=== PATIENT | male | born 1960 | race Caucasian/White ===

== ENCOUNTER 2017-04-17 17:21 | Emergency (ER) | payer MEDICARE, SELFPAY ==
[2017-04-17 17:22] VITALS: BP 127/75; PULSE 63; RESP 18; TEMP 36.1; O2SAT 95; BMI 29.7
--- NOTE | 2017-04-17 17:52 | CT_ITS ---
STUDY: CT ABDOMEN AND PELVIS WITHOUT CONTRAST REASON FOR EXAM: Male, 56 years old. Left-sided groin pain. RADIATION DOSAGE (If Supplied By Facility): CTDIvol = ( 15.01 ) mGy, DLP = ( 824.84 ) mGycm TECHNIQUE: Transaxial images were obtained from the dome of the diaphragm to the symphysis pubis without oral contrast, and without intravenous contrast. Sagittal and coronal images were reconstructed. Individualized dose optimization techniques were used for this CT. COMPARISON: Prior comparison studies are not available for review at this time. FINDINGS: The visualized lung bases are unremarkable. The visualized portions of the heart are within normal limits. Normal liver. Normal gallbladder and extrahepatic biliary system. Normal spleen. Normal pancreas. Normal bilateral adrenal glands. Both kidneys are small in size. There is no evidence for hydronephrosis, hydroureter or radiopaque ureteral calculus. Normal visualized stomach. There is no evidence for dilated bowel, ascites or pneumoperitoneum. Small bowel has a grossly normal appearance. Stool is visible throughout the colon with scattered colonic diverticula. The appendix is visualized and appears normal. There is minimal atherosclerotic calcification of the abdominal aorta, without a demonstrated aneurysm. Normal inferior vena cava. Normal retroperitoneum. Normal urinary bladder. Normal visualized prostate gland. There is a small umbilical hernia containing fat. There are degenerative changes at T12-L1 and L1-2. CT/Abdomen/Pelvis without Cont IMPRESSION: No CT evidence of acute intra-abdominal disease. Electronically Signed: Paulina Vásquez MD at 19:30 EST , Service support ,
[2017-04-17] MEDS: HYDROcodone Bitartrate/Apap 5/325 Tablet PO (18:10)
--- NOTE | 2017-04-17 18:57 | ED.DCSUM_ITS ---
- ER Visit Summary Date of Service: 04/17/17 Chief Complaint: Left groin pain History of Present Illness: The patient is a 56 M with prior left inguinal hernia repair. Patient states last night he was lifting firewood when he developed sudden pain to the area of his prior hernia surgery. He denies a bulge. Patient has been able urinate and have normal bowel movement today. Physical Examination: Vital signs are unremarkable. Head neck examination is normal. Heart is regular rate and rhythm. Lung sounds are clear. Abdomen is soft with mild tenderness over the left pelvis along the prior surgical scar from his hernia repair. No palpable hernia is noted at this time. Test Results: CT scan of the abdomen and pelvis reveals no evidence of acute ab normality. On my review I can see the mesh that was placed previously. Bowel appears normal in this area. Emergency Department Course and Treatment: Patient was given p.o. [place] for pain. He will be given a short course of [place] for pain at home. He will refer to Dr. Villalobos for follow-up if needed. My suspicion is that he pulled some of the scar tissue from his prior surgical site. At this time there is no evidence of recurrent hernia. Treatment Plan: [] Disposition: Discharge Impression: Left lower quadrant pain This note was generated with [employer] dictation software. It may contain incorrect words, spelling, and punctuation that were not noted in review of the chart prior to signing ED Disposition - Plan for ED Patient: Chief Complaint: Abd Pain Referrals: Care Physician,No Primary [Primary Care Provider] -
--- NOTE | 2017-04-17 20:02 | ED.DEP ---
ED Disposition - Plan for ED Patient: Disposition: Home or Assisted Living Chief Complaint: Abd Pain Instructions: ED Abdominal Pain Adhesions Prescriptions: Hydrocodone Bitart/Apap 5-325 [Bauxite 5/325] 1 - 2 tablet PO Q6H PRN PRN 4 Days #12 tablet PRN Reason: Pain Referrals: Jered Villalobos MD [STAFF PHYSICIAN] - As Needed
--- NOTE | 2017-04-17 20:05 | DCINST.ED_ITS ---
ED Disposition - Plan for ED Patient: Disposition: Home or Assisted Living Chief Complaint: Abd Pain Instructions: ED Abdominal Pain Adhesions Prescriptions: Hydrocodone Bitart/Apap 5-325 [Foster 5/325] 1 - 2 tablet PO Q6H PRN PRN 4 Days # 12 tablet PRN Reason: Pain Referrals: Jered Villalobos MD [STAFF PHYSICIAN] - As Needed
[2017-04-17 20:19] VITALS: PULSE 85; RESP 16; O2SAT 99
== END 2017-04-17 20:20 | disposition home or self-care (01) ==
PROVIDERS: Emergency Provider Emergency Medicine
DX: R10.32 Left lower quadrant pain (principal); I25.2 Old myocardial infarction; I10 Essential (primary) hypertension; Z86.73 Personal history of transient ischemic attack (TIA), and cerebral infarction without residual deficits; Z79.01 Long term (current) use of anticoagulants; Z79.899 Other long term (current) drug therapy; Z72.0 Tobacco use
CPT/HCPCS: 74176; 99283

== ENCOUNTER 2017-07-24 19:44 | Emergency (ER) | payer MEDICARE, SELFPAY ==
[2017-07-24 19:45] VITALS: BP 151/96; PULSE 68; RESP 17; TEMP 36.2; O2SAT 98; BMI 29.7
--- NOTE | 2017-07-24 21:00 | ED.DCSUM_ITS ---
- ER Visit Summary Date of Service: 07/24/17 Chief Complaint: Possible allergic reaction History of Present Illness: The patient is a 57 M who presents with a rash that has been getting worse over the past week. Patient states the rash started on his bilateral forearms and has spread to his scalp and upper back. Patient denies any exposure to poison karissa or poison oak. Patient denies any new exposures such as foods, soaps, shampoos, or laundry detergents. Patient denies any difficulty breathing or difficulty swallowing. Patient denies any rashes on his trunk or lower extremities. Physical Examination: Vital signs are stable. Patient is afebrile. Patient is in no acute distress. Oral mucosa is pink and moist. Neck is supple. Trachea is midline. There is no JVD or lymphadenopathy noted. Heart was regular rate and rhythm. Lungs are clear and equal bilaterally. Cranial nerves II through XII are intact. There are no focal motor or sensory deficits noted. Skin is warm dry. There is a erythematous macular rash over the bilateral forearms, scalp, and upper back. There are areas of linear vesicles. There is no crusting or drainage noted. There is no involvement of the mucous membranes. There is no involvement of the palms or soles. There is no petechia noted. The remaining physical exam is within normal limits. Treatment Plan: Patient was given prescriptions for redness own and Atarax. Patient was instructed to follow-up with his primary care physician in 7-10 days. Patient understood and was agreeable with the plan. All questions were answered. Disposition: Discharge home Impression: Rhus dermatitis This note was generated with [employer] dictation software. It may contain incorrect words, spelling, and punctuation that were not noted in review of the chart prior to signing ED Disposition - Plan for ED Patient: Disposition: Home or Assisted Living Chief Complaint: Allergic Reaction Diagnosis: Rhus dermatitis Instructions: ED Dermatitis Poison Karissa Prescriptions: Hydroxyzine Pamoate 25 mg PO Q8H PRN PRN #20 cap PRN Reason: Itching Prednisone [Deltasone] 40 mg PO DAILY #10 tab Referrals: Care Physician,No Primary [Primary Care Provider] -
[2017-07-24 21:09] VITALS: RESP 18
== END 2017-07-24 21:09 | disposition home or self-care (01) ==
LOC: ED 21:07
PROVIDERS: Emergency Provider Emergency Medicine
DX: L23.7 Allergic contact dermatitis due to plants, except food (principal); I10 Essential (primary) hypertension; E78.00 Pure hypercholesterolemia, unspecified; Z86.73 Personal history of transient ischemic attack (TIA), and cerebral infarction without residual deficits; Z79.01 Long term (current) use of anticoagulants; Z79.899 Other long term (current) drug therapy; Z72.0 Tobacco use
CPT/HCPCS: 99282

== ENCOUNTER 2017-10-10 14:38 | Observation (INO) | payer MEDICARE, SELFPAY ==
[2017-10-10] VITALS (11 sets, daily range): BP systolic 118–162; BP diastolic 60–87; PULSE 39–55; RESP 13–18; TEMP 36.4–36.7; O2SAT 96–100; BMI 31.7; BMI 26.4
--- NOTE | 2017-10-10 14:39 | CT_ITS ---
STUDY: CTA OF THE BRAIN REASON FOR EXAM: Male, 57 years old. Mental status change, right-sided weakness RADIATION DOSAGE (If Supplied By Facility): CTDIvol = ( 15.34 ) mGy, DLP = ( 704.21 ) mGycm TECHNIQUE: CT angiography was performed with a multi-detector CT scanner. Data acquisition was obtained from the skull base through the vertex following intravenous administration of 100 ml of Isovue 370. MIP images were reconstructed from the axial data set. Post-processing of the angiographic images was performed, with multiplanar reformation and 3D reconstruction. Individualized dose optimization techniques were used for this CT. COMPARISON: None. FINDINGS: Normal bilateral petrous carotid arteries. Normal right cavernous carotid artery with a normal supraclinoid bifurcation. Normal left cavernous carotid artery with a normal supraclinoid bifurcation. Normal right A1 segments of the anterior cerebral artery. Normal left A1 segments of the anterior cerebral artery. Normal intact anterior communicating artery (ACOM). Normal bilateral A2 segments of the anterior cerebral arteries. Normal right M1 and M2 segments of the middle cerebral arteries, with a normal M1 bifurcation. Normal left M1 and M2 segments of the middle cerebral arteries, with a normal M1 bifurcation. Normal right posterior communicating artery (PCOM). Normal left posterior communicating artery (PCOM). Normal bilateral vertebral arteries. Normal basilar artery with a normal basilar bifurcation. The visualized bilateral superior cerebellar (SCA) arteries are normal. Normal bilateral P1, P2 and visualized P3 segments of the posterior cerebral arteries. There is no demonstrated aneurysm of the [place]. There is no demonstrated abnormality of the visualized brain. IMPRESSION: Normal [place] without a demonstrated aneurysm or hemodynamically significant stenosis. Electronically Signed: Evgeny Spears MD at 15:11 EDT , Service support , STUDY: CTA NECK REASON FOR EXAM: Male, 57 years old. Mental status change, facial drooping RADIATION DOSAGE (If Supplied By Facility): CTDIvol = ( 15.34 ) mGy, DLP = ( 704.21 ) mGycm. Individualized dose optimization techniques were used for this CT.? TECHNIQUE: 1.25 cm axial images of the neck obtained with 100 mL Isovue 370 contrast. MPR performed along with three-dimensional reconstruction of the carotid arteries and their branches. COMPARISON: None. FINDINGS: Normal origins of the great vessels noted from a normal appearing aortic arch. No significant atherosclerotic disease noted. Both common carotid arteries ascend normally through the neck without evidence of stenosis or dissection. Normal-appearing carotid bulbs noted without significant atherosclerotic disease. Normal origins to both internal and external carotid arteries noted. Both ICAs ascend normally to the skull base and in the circulation of the brain. Vertebral arteries are of similar size. No evidence of stenosis identified. Both subclavian arteries are of normal course and caliber. The soft tissue windows show normal-appearing thyroid gland. There are scattered subcentimeter jugular chain and posterior triangle adenopathy but there is no suspicious enhancing lesion, evidence of inflammation, tissue disruption, or airway narrowing or deviation. There is an air-fluid level noted within the left maxillary sinus. CT/CTA Neck W/WO Contrast IMPRESSION: No CTA evidence of significant plaque formation or carotid artery stenosis. Normal vertebral arteries. No suspicious enhancing lesion or narrowing or deviation or acute inflammatory changes noted. Left maxillary sinusitis Electronically Signed: Evgeny Spears MD at 15:10 EDT , Service support ,
--- NOTE | 2017-10-10 14:39 | CT_ITS ---
STUDY: CTA OF THE BRAIN REASON FOR EXAM: Male, 57 years old. Mental status change, right-sided weakness RADIATION DOSAGE (If Supplied By Facility): CTDIvol = ( 15.34 ) mGy, DLP = ( 704.21 ) mGycm TECHNIQUE: CT angiography was performed with a multi-detector CT scanner. Data acquisition was obtained from the skull base through the vertex following intravenous administration of 100 ml of Isovue 370. MIP images were reconstructed from the axial data set. Post-processing of the angiographic images was performed, with multiplanar reformation and 3D reconstruction. Individualized dose optimization techniques were used for this CT. COMPARISON: None. FINDINGS: Normal bilateral petrous carotid arteries. Normal right cavernous carotid artery with a normal supraclinoid bifurcation. Normal left cavernous carotid artery with a normal supraclinoid bifurcation. Normal right A1 segments of the anterior cerebral artery. Normal left A1 segments of the anterior cerebral artery. Normal intact anterior communicating artery (ACOM). Normal bilateral A2 segments of the anterior cerebral arteries. Normal right M1 and M2 segments of the middle cerebral arteries, with a normal M1 bifurcation. Normal left M1 and M2 segments of the middle cerebral arteries, with a normal M1 bifurcation. Normal right posterior communicating artery (PCOM). Normal left posterior communicating artery (PCOM). Normal bilateral vertebral arteries. Normal basilar artery with a normal basilar bifurcation. The visualized bilateral superior cerebellar (SCA) arteries are normal. Normal bilateral P1, P2 and visualized P3 segments of the posterior cerebral arteries. There is no demonstrated aneurysm of the [place]. There is no demonstrated abnormality of the visualized brain. IMPRESSION: Normal [place] without a demonstrated aneurysm or hemodynamically significant stenosis. Electronically Signed: Evgeny Spears MD at 15:11 EDT , Service support , STUDY: CTA NECK REASON FOR EXAM: Male, 57 years old. Mental status change, facial drooping RADIATION DOSAGE (If Supplied By Facility): CTDIvol = ( 15.34 ) mGy, DLP = ( 704.21 ) mGycm. Individualized dose optimization techniques were used for this CT.? TECHNIQUE: 1.25 cm axial images of the neck obtained with 100 mL Isovue 370 contrast. MPR performed along with three-dimensional reconstruction of the carotid arteries and their branches. COMPARISON: None. FINDINGS: Normal origins of the great vessels noted from a normal appearing aortic arch. No significant atherosclerotic disease noted. Both common carotid arteries ascend normally through the neck without evidence of stenosis or dissection. Normal-appearing carotid bulbs noted without significant atherosclerotic disease. Normal origins to both internal and external carotid arteries noted. Both ICAs ascend normally to the skull base and in the circulation of the brain. Vertebral arteries are of similar size. No evidence of stenosis identified. Both subclavian arteries are of normal course and caliber. The soft tissue windows show normal-appearing thyroid gland. There are scattered subcentimeter jugular chain and posterior triangle adenopathy but there is no suspicious enhancing lesion, evidence of inflammation, tissue disruption, or airway narrowing or deviation. There is an air-fluid level noted within the left maxillary sinus. CT/CTA Head W/WO Contrast IMPRESSION: No CTA evidence of significant plaque formation or carotid artery stenosis. Normal vertebral arteries. No suspicious enhancing lesion or narrowing or deviation or acute inflammatory changes noted. Left maxillary sinusitis Electronically Signed: Evgeny Spears MD at 15:10 EDT , Service support ,
--- NOTE | 2017-10-10 14:39 | CT_ITS ---
STUDY: CT BRAIN WITHOUT CONTRAST REASON FOR EXAM: Male, 57 years old. New onset of right-sided weakness RADIATION DOSAGE (If Supplied By Facility): CTDIvol = ( ) mGy, DLP = ( ) mGycm TECHNIQUE: Transaxial CT imaging of the brain was performed without administration of intravenous contrast material. Individualized dose optimization techniques were used for this CT. COMPARISON: None. FINDINGS: Normal soft tissue structures. Normal calvarium. Normal size ventricles and extra-axial spaces for the patient's age. Normal white matter tracts of the cerebral hemispheres. Normal basal ganglia and thalami. Normal brainstem. Normal cerebellum. There is no intracranial hemorrhage. There are no findings of an acute ischemic infarction. Normal visualized paranasal sinuses. CT/Brain/Head without Contrast IMPRESSION: Age-related changes, no acute findings CT is not sensitive for nonhemorrhagic infarct, if this is a strong clinical concern, recommend further evaluation with MRI N.B. : The above information has been verbally conveyed by Evgeny Spears MD to Gregorio Hester, Referring Physician, on 10/10/2017 14:56:04 (ET). Electronically Signed: Evgeny Spears MD at 14:57 EDT , Service support ,
--- NOTE | 2017-10-10 14:39 | EKG12_ITS ---
Test Reason : Blood Pressure : / mmHG Vent. Rate : 050 BPM Atrial Rate : 050 BPM P-R Int : 178 ms QRS Dur : 092 ms QT Int : 448 ms P-R-T Axes : 056 022 054 degrees QTc Int : 408 ms Sinus bradycardia Otherwise normal ECG Confirmed by ELAINE JARRETT, [place] ([id number]), fashion editor SARY PETERSON ([id number]) on 10/16/2017 2:43:43 PM Referred By: Maurilio Pabon Confirmed By:KENOTN HENRY MD
--- NOTE | 2017-10-10 14:57 | MRI_ITS ---
STUDY: MRI BRAIN WITHOUT CONTRAST REASON FOR EXAM: Male, 57 years old. Left hemispheric stroke. A aphasia. TECHNIQUE: Standardized multiplanar fat and water weighted pulse sequences were obtained. COMPARISON: October 10, 2017 FINDINGS: Normal size of the ventricles and extra-axial spaces for the patient's age. Normal white matter tracts of the supratentorial brain. There is no evidence for recent intracranial ischemia or other cause of cytotoxic edema on diffusion weighted imaging (DWI). Normal bilateral basal ganglia. Normal thalami. There is no extra-axial fluid accumulation. Normal flow voids within the major intracranial circulation suggesting patency by spin echo criteria. Normal sella turcica, pituitary gland, infundibular stalk, optic chiasm and hypothalamus. Normal tectal plate and pineal gland. Normal midbrain, tre and medulla. Normal cerebellum. Normal basal cisterns. Normal bilateral temporal bones. Normal bilateral internal auditory canals. No demonstrated orbital abnormality, within the constraints of a routine brain study. Normal visualized paranasal sinuses. Normal calvarium and skull base. Normal visualized soft tissue structures. Normal visualized upper cervical spine. MRI/Brain without Contrast IMPRESSION: Normal unenhanced MRI of the brain. Electronically Signed: Jovan Liu MD at 16:36 EDT , Service support ,
[2017-10-10 15:05] LABS: Bedside Glucose 91 mg/dL (70-110)
--- NOTE | 2017-10-10 15:16 | CON.PCM_ITS ---
Reason for Consult Date of Consultation: 10/10/17 Reason for Consultation: STROKE TEAM History of Present Illness: The patient is a 57 year old M with history of cva in '08, apparently worked up elsewhere was last known well at 2pm today, later noted by coworkers to have right sided weakness. i met the patient in the ct scanner and reviewed the ct scan concurrent with its performance at approx 250pm. pt is awake, alert, but mute and unable to give history. Past Medical History Allergies aspirin Allergy (Verified 10/10/17 14:53) Swelling meperidine HCl [From Demerol] Allergy (Verified 10/10/17 14:53) Unknown Penicillins [PCN] Allergy (Verified 10/10/17 14:53) Hives Home Medications: Ambulatory Orders Medication Instructions Recorded Clopidogrel Bisulfate [Plavix] 75 mg PO DAILY 04/17/17 Metoprolol Tartrate [Lopressor 50 mg PO DAILY 04/17/17 (Beta Anselmo)] Pravastatin [Pravachol] 40 mg PO DAILY 04/17/17 Hydroxyzine Pamoate 25 mg PO Q8H PRN PRN #20 cap 07/24/17 Prednisone [Deltasone] 40 mg PO DAILY #10 tab 07/24/17 Smoking Status: Current some day smoker Alcohol: None Drugs: None - *Family History Paternal History Items: No pertinent history Review of Systems Unable to obtain accurate/complete ROS d/t: mute Objective: awake, alert mute answers yes/no appropriately and follows all commands no field cut quantitative manager intact give-way right upper and right lower ext, no drift when distracted sensory exam ? decrease on right, appears distractible as well - Physical Exam Vital Signs Pulse BP Pulse Ox 54 L 150/87 H 99 10/10/17 14:56 10/10/17 14:56 10/10/17 14:56 Oxygen Delivery Method Room Air Finger Stick Blood Glucose 91 POC Glucose 10/10/17 15:[address] reviewed, normal cta reviewed, normal Assessment/Plan All Active Problems Chest pain (Acute) acute left mca infarct causing aphasia, however he has nonphysiologic component to exam. will obtain stat mri diffusion decision for tpa depends upon mri nihss 7 due to rue and rle drift as well as severe aphasia
[2017-10-10] MEDS: DiphenhydrAMINE 50 MG/ML Syringe IV (15:19)
[2017-10-10] MEDS: LORazepam 2 MG/ML Syringe 0.5 MG IV (15:19)
[2017-10-10 15:24] LABS: Prothrombin Time (Protime)PT. 13.2 SECONDS (11.7-14.9)
[2017-10-10 15:25] LABS: Partial Thromboplast Time 30.2 Seconds (24.1-36.2)
[2017-10-10 15:29] LABS: Absolute Lymphocyte Count 1.78 X10^3/ul (0.83-4.51); Absolute Neutrophil Count 2.1 X10^3/uL (2.0-7.7); Basophil# 0.02 X10^3/uL; Basophil% 0.4 % (0-1); Eosinophil# 0.18 X10^3/uL; Hematocrit 41.6 % (40-54); Hemoglobin 14.8 g/dl (13.0-16.5); Lymphocyte # 1.78 X10^3/ul (4.0); Lymphocyte % 39.6 % (19-41); Mean Corp Hgb Conc 35.6 g/gl (32-36); Mean Corpuscular Hgb 34.9 pg (27.0-32.0); Mean Corpuscular Volume 98.1 fL (80-94); Monocyte# 0.42 X10^3/uL; Monocyte% 9.3 % (0-10); Neutrophil # 2.09 X10^3/uL (2.7-7.7); Neutrophil % 46.5 % (47-70); Platelet Count 189 K/mm3 (150-450); RBC Distribution Width CV 12.7 % (11.6-14.6); RBC Distribution Width SD 44.5 fl (35.1-43.9); Red Blood Count 4.24 M/mm3 (4.6-6.2); White Blood Count 4.5 K/mm3 (4.4-11.0)
[2017-10-10 15:41] LABS: POSITIVE COUNT NO; POSITIVE DIFFERENTIAL NO; POSITIVE MORPHOLOGY NO
[2017-10-10 15:42] LABS: Anion Gap 4 (5-15); BUN 9 mg/dL (7-18); BUN/Creat Ratio 10.3 RATIO (10-20); Calcium,Total 8.3 mg/dL (8.5-10.1); Chloride 105 mmol/L (98-107); Creatinine, Serum 0.87 mg/dL (0.70-1.30); EST Glomerular Filtration Rate 96 mL/min (>60); Est Glom Filt Rate - Afr Amer 116 mL/min (>60); Glucose 87 mg/dL (74-106); Potassium 3.9 mmol/L (3.5-5.1); Sodium Level 141 mmol/L (136-145)
--- NOTE | 2017-10-10 15:44 | NURSING ---
PT IN MRI. NURSE CALLED UNCLE WHO IS LISTED NEXT OF [facility]: [phone], HE WOULD LIKE US TO CALL BACK WITH AN UPDATE AFTER MRI COMPLETE.
--- NOTE | 2017-10-10 16:17 | ED.VISSUMM ---
- ER Visit Summary Date of Service: 10/10/17 Chief Complaint: Stroke History of Present Illness: The patient is a 57 M with past medical history of TIA/stroke and hypertension was brought to ER by ambulance. Stroke team was called. History was limited since he was in the hallway when I perform my H&P since there were no beds and desire to get him to imaging immediately since onset was at 1400. Patient has expressive aphasia. He had an NIH of 10. He received 2 points for question 1B, 1.4 question 5, 1.4 question 6 3.4 being mute and one-point for an attention to the right side. Physical Examination: Vital signs were noted. Head is atraumatic normocephalic. Pupils are equal round reactive. Extraocular muscles are intact. TMs are pearly white with landmarks noted. Nares patent with no drainage. Posterior pharynx without erythema or exudate. Uvula is midline. There is no dysphonia or dysphasia. Trachea is midline. There is no stridor with auscultation of the neck. Heart is regular without murmur, gallop or rub. S1 and S2 are normal. Lungs are clear to auscultation with good movement of air bilaterally. Abdomen soft nontender. NIH 10. He had altered sensation and strength right side. He had an expressive aphasia. Test Results: CT normal. CBC, BMP and coags normal. Dr. Pickett requested an MRI. MRI was obtained and there was no perfusion abnormality noted. The MRI was obtained because of concern that this may represent a conversion reaction because on his more detailed exam he noted some inconsistencies. Emergency Department Course and Treatment: Stroke team, stroke order set an MRI as requested by Dr. Otoniel Pickett Treatment Plan: Observation per Dr. Pickett's request Disposition: PCU Impression: Conversion reaction History of hypertension History of TIA/CVA This note was generated with [employer] dictation software. It may contain incorrect words, spelling, and punctuation that were not noted in review of the chart prior to signing ED Disposition - Plan for ED Patient: Chief Complaint: Neuro S/Sx Referrals: Care Physician,No Primary [Primary Care Provider] -
--- NOTE | 2017-10-10 17:57 | PCM.HP.STD ---
Problem List (1) Aphasia Status: Acute History of Present Illness Date of Admission: 10/10/17 Chief Complaint: aphasia and weakness. The patient is a 57 year old M presents with inability to speak and generalized weakness. History is obtained through the patient's son at bedside. The patient is a phasic and unable to provide any history whatsoever. Patient was at work and having a cigarette with his employer where the patient was suddenly unable to speak and just became very weak and unable to get up. Patient was brought to the emergency room and stroke team was called. She underwent an MRI of the brain, CT of the head neck. All which came back unremarkable. Patient's son states that he has had similar episodes but to less extreme in the past that was seen at another hospital and was told that these were due to mini strokes. [] Past Medical History Medical History: Medical History (Last Updated 10/10/17 @ 17:59 by Jimmy Patiño DO) TIA (transient ischemic attack) G45.9 Allergies aspirin Allergy (Verified 10/10/17 14:53) Swelling meperidine HCl [From Demerol] Allergy (Verified 10/10/17 14:53) Unknown Penicillins [PCN] Allergy (Verified 10/10/17 14:53) Hives Home Medications: Ambulatory Orders Medication Instructions Recorded Clopidogrel Bisulfate [Plavix] 75 mg PO DAILY 04/17/17 Metoprolol Succinate 50 mg PO DAILY 10/10/17 Pravastatin [Pravachol] 40 mg PO QHS 10/10/17 Tizanidine HCl 4 mg PO QHS PRN PRN 10/10/17 Smoking Status: Current every day smoker Tobacco Use: Cigarettes Alcohol: None Drugs: None - *Family History Paternal History Items: No pertinent history, - - Unable to obtain as the patient is a phasic Review of Systems Comment: Unable to obtain as the patient is a phasic. See the HPI for further details. VTE Information - Inpt Only VTE Present on Admission: No VTE Pharm Prophylaxis ordered?: Yes Patient Problems: Active and Suspected Problems Aphasia (Acute) - Physical Exam General: Alert, - - A phasic. HEENT: Atraumatic, PERRLA, EOMI, Normocephalic Oral: Moist Mucosa, No Gingival or Mucosal Lesions/ Ulcerations Neck: No Nodes, Thyroid Normal Size and Texture Lungs: Clear to auscultation, Normal air movement, No rhonchi, No wheeze, No rales Cardiovascular: Regular rate, Regular Rhythm, Normal S1, Normal S2, No murmurs Abdomen: Bowel Sounds Present, Soft, Non Tender, Non-Distended, No Hepato-splenomegaly Extremities: No edema, No Calf Tenderness Skin: No rashes, No breakdown Musculoskeletal: No Tenderness to Palpation of Joints or Extremities, No Muscle Wasting Neurological: Cranial nerves II-XII grossly intact, Neuro grossly intact, Motor Exam 5/5 strength throughout Psych/Mental Status: Appropriate Vital Signs Pulse Resp BP Pulse Ox 47 L 13 135/82 H 100 10/10/17 16:56 10/10/17 16:56 10/10/17 16:56 10/10/17 16:56 Oxygen Flow Rate (L/min) 4 Oxygen Delivery Method Nasal Cannula Weight: 97.5 kg Body Mass Index (BMI) 31.7 Finger Stick Blood Glucose 91 Laboratory Tests Past 24 Hrs 10/10/17 10/10/17 10/10/17 15:00 15:00 15:00 WBC 4.5 RBC 4.24 L Hgb 14.8 Hct 41.6 MCV 98.1 H MCH 34.9 H MCHC 35.6 RDW 12.7 RDW Differential 44.5 H Plt Count 189 MPV 11.0 Immature Gran % (Auto) 0.200 Neut % (Auto) 46.5 L Lymph % (Auto) 39.6 [place] % (Auto) 9.3 Eos % (Auto) 4.0 Baso % (Auto) 0.4 Absolute Neuts (auto) 2.1 Absolute Lymphs (auto) 1.78 Total Counted Not Reportable PT 13.2 INR 1.0 APTT 30.2 Sodium 141 Potassium 3.9 Chloride 105 Carbon Dioxide 32.0 Anion Gap 4 L BUN 9 Creatinine 0.87 Est GFR (MDRD) Af Amer 116 Est GFR (MDRD) Non-Af 96 BUN/Creatinine Ratio 10.3 Glucose 87 Calcium 8.3 L POC Glucose 10/10/17 15:01 POC Glucose 91 Clinical Impression(s) from Imaging Studies Brain CT 10/10/17 14:39 IMPRESSION: Age-related changes, no acute findings CT is not sensitive for nonhemorrhagic infarct, if this is a strong clinical concern, recommend further evaluation with MRI N.B. : The above information has been verbally conveyed by Evgeny Spears MD to Gregorio Hester, Referring Physician, on 10/10/2017 14:56:04 (ET). Electronically Signed: Evgeny Spears MD at 14:57 EDT , Service support , Head CTA 10/10/17 14:39 IMPRESSION: No CTA evidence of significant plaque formation or carotid artery stenosis. Normal vertebral arteries. No suspicious enhancing lesion or narrowing or deviation or acute inflammatory changes noted. Left maxillary sinusitis Electronically Signed: Evgeny Spears MD at 15:10 EDT , Service support , Neck CTA 10/10/17 14:39 IMPRESSION: No CTA evidence of significant plaque formation or carotid artery stenosis. Normal vertebral arteries. No suspicious enhancing lesion or narrowing or deviation or acute inflammatory changes noted. Left maxillary sinusitis Electronically Signed: Evgeny Spears MD at 15:10 EDT , Service support , Brain MRI 10/10/17 14:57 IMPRESSION: Normal unenhanced MRI of the brain. Electronically Signed: Jovan Liu MD at 16:36 EDT , Service support , Assessment/Plan All Active Problems Aphasia (Acute) Chest pain (Acute) 1. Aphasia No evidence of any stroke on the MRI and CT of the head neck are also unremarkable Concern is that this could be a conversion disorder given his symptoms. Discussed with Dr. Pickett, who advised an EEG to see if this is a post ictal state though unlikely 2. DVT prophylaxis with Lovenox Code Visit OBSV E&M: 53442 Initial observation care L3
--- NOTE | 2017-10-10 18:01 | HP.PCM_ITS ---
Problem List (1) Aphasia Status: Acute History of Present Illness Date of Admission: 10/10/17 Chief Complaint: aphasia and weakness. The patient is a 57 year old M presents with inability to speak and generalized weakness. History is obtained through the patient's son at bedside. The patient is a phasic and unable to provide any history whatsoever. Patient was at work and having a cigarette with his employer where the patient was suddenly unable to speak and just became very weak and unable to get up. Patient was brought to the emergency room and stroke team was called. She underwent an MRI of the brain, CT of the head neck. All which came back unremarkable. Patient' s son states that he has had similar episodes but to less extreme in the past that was seen at another hospital and was told that these were due to mini strokes. [] Past Medical History Medical History: Medical History (Last Updated 10/10/17 @ 17:59 by Jimmy Patiño DO) TIA (transient ischemic attack) G45.9 Allergies aspirin Allergy (Verified 10/10/17 14:53) Swelling meperidine HCl [From Demerol] Allergy (Verified 10/10/17 14:53) Unknown Penicillins [PCN] Allergy (Verified 10/10/17 14:53) Hives Home Medications: Ambulatory Orders Medication Instructions Recorded Clopidogrel Bisulfate [Plavix] 75 mg PO DAILY 04/17/17 Metoprolol Succinate 50 mg PO DAILY 10/10/17 Pravastatin [Pravachol] 40 mg PO QHS 10/10/17 Tizanidine HCl 4 mg PO QHS PRN PRN 10/10/17 Smoking Status: Current every day smoker Tobacco Use: Cigarettes Alcohol: None Drugs: None - *Family History Paternal History Items: No pertinent history, - - Unable to obtain as the patient is a phasic Review of Systems Comment: Unable to obtain as the patient is a phasic. See the HPI for further details. VTE Information - Inpt Only VTE Present on Admission: No VTE Pharm Prophylaxis ordered?: Yes Patient Problems: Active and Suspected Problems Aphasia (Acute) - Physical Exam General: Alert, - - A phasic. HEENT: Atraumatic, PERRLA, EOMI, Normocephalic Oral: Moist Mucosa, No Gingival or Mucosal Lesions/ Ulcerations Neck: No Nodes, Thyroid Normal Size and Texture Lungs: Clear to auscultation, Normal air movement, No rhonchi, No wheeze, No rales Cardiovascular: Regular rate, Regular Rhythm, Normal S1, Normal S2, No murmurs Abdomen: Bowel Sounds Present, Soft, Non Tender, Non-Distended, No Hepato- splenomegaly Extremities: No edema, No Calf Tenderness Skin: No rashes, No breakdown Musculoskeletal: No Tenderness to Palpation of Joints or Extremities, No Muscle Wasting Neurological: Cranial nerves II-XII grossly intact, Neuro grossly intact, Motor Exam 5/5 strength throughout Psych/Mental Status: Appropriate Vital Signs Pulse Resp BP Pulse Ox 47 L 13 135/82 H 100 10/10/17 16:56 10/10/17 16:56 10/10/17 16:56 10/10/17 16:56 Oxygen Flow Rate (L/min) 4 Oxygen Delivery Method Nasal Cannula Weight: 97.5 kg Body Mass Index (BMI) 31.7 Finger Stick Blood Glucose 91 Laboratory Tests Past 24 Hrs 10/10/17 10/10/17 10/10/17 15:00 15:00 15:00 WBC 4.5 RBC 4.24 L Hgb 14.8 Hct 41.6 MCV 98.1 H MCH 34.9 H MCHC 35.6 RDW 12.7 RDW Differential 44.5 H Plt Count 189 MPV 11.0 Immature Gran % (Auto) 0.200 Neut % (Auto) 46.5 L Lymph % (Auto) 39.6 [place] % (Auto) 9.3 Eos % (Auto) 4.0 Baso % (Auto) 0.4 Absolute Neuts (auto) 2.1 Absolute Lymphs (auto) 1.78 Total Counted Not Reportable PT 13.2 INR 1.0 APTT 30.2 Sodium 141 Potassium 3.9 Chloride 105 Carbon Dioxide 32.0 Anion Gap 4 L BUN 9 Creatinine 0.87 Est GFR (MDRD) Af Amer 116 Est GFR (MDRD) Non-Af 96 BUN/Creatinine Ratio 10.3 Glucose 87 Calcium 8.3 L POC Glucose 10/10/17 15:01 POC Glucose 91 Clinical Impression(s) from Imaging Studies Brain CT 10/10/17 14:39 IMPRESSION: Age-related changes, no acute findings CT is not sensitive for nonhemorrhagic infarct, if this is a strong clinical concern, recommend further evaluation with MRI N.B. : The above information has been verbally conveyed by Evgeny Spears MD to Gregorio Hester, Referring Physician, on 10/10/2017 14:56:04 (ET). Electronically Signed: Evgeny Spears MD at 14:57 EDT , Service support , Head CTA 10/10/17 14:39 IMPRESSION: No CTA evidence of significant plaque formation or carotid artery stenosis. Normal vertebral arteries. No suspicious enhancing lesion or narrowing or deviation or acute inflammatory changes noted. Left maxillary sinusitis Electronically Signed: Evgeny Spears MD at 15:10 EDT , Service support , Neck CTA 10/10/17 14:39 IMPRESSION: No CTA evidence of significant plaque formation or carotid artery stenosis. Normal vertebral arteries. No suspicious enhancing lesion or narrowing or deviation or acute inflammatory changes noted. Left maxillary sinusitis Electronically Signed: Evgeny Spears MD at 15:10 EDT , Service support , Brain MRI 10/10/17 14:57 IMPRESSION: Normal unenhanced MRI of the brain. Electronically Signed: Jovan Liu MD at 16:36 EDT , Service support , Assessment/Plan All Active Problems Aphasia (Acute) Chest pain (Acute) 1. Aphasia * No evidence of any stroke on the MRI and CT of the head neck are also unremarkable * Concern is that this could be a conversion disorder given his symptoms. * Discussed with Dr. Pickett, who advised an EEG to see if this is a post ictal state though unlikely 2. DVT prophylaxis with Lovenox Code Visit OBSV E&M: 07819 Initial observation care L3
--- NOTE | 2017-10-10 18:40 | NURSING ---
[facility] notifed patient may transfer to PCU.
--- NOTE | 2017-10-10 20:46 | NURSING ---
called down to ER and spoke with Barbara El RN in regards to this patient's dysphagia screening. according to the screening results, it failed the patient because it was only charted that he had a clean mouth and was alert and awake for more than 15 minutes. I called down to clarify the documentation to make sure he actually indeed did fail the screening or if the charting was just unfinished resulting in a fail result. she said they attempted to give him a sip of water and he took awhile to swallow it and mentioned that it felt funny when he swallowed so she did not feel comfortable progressing to the applesauce. this RN has confirmed that patient failed dysphagia screening and will make NPO until speech can see patient.
[2017-10-11 00:33] VITALS: BMI 26.4
[2017-10-11 02:53] VITALS: BP 107/57; PULSE 50; RESP 16; TEMP 36.9; O2SAT 95
[2017-10-11 03:00] VITALS: PULSE 49; O2SAT 95
--- NOTE | 2017-10-11 06:28 | PCA ---
patient refused to have head washed for EEG test. stated he just wanted to have his papers to sign so he can leave.
[2017-10-11 06:50] VITALS: BP 120/65; PULSE 48; RESP 16; TEMP 36.6; O2SAT 96
[2017-10-11 06:50] LABS: Cholesterol 199 mg/dL (200); High Density Lipoprotein 29 mg/dL; Triglycerides 199 mg/dL; Very Low Density Lipoprotein 40 mg/dL (5-40)
[2017-10-11 06:56] VITALS: PULSE 48
[2017-10-11] MEDS: 0.9% NaCl Peripheral Flush Adult/Peds IV (09:48)
[2017-10-11] MEDS: Clopidogrel Bisulfate 75 MG Tablet PO (09:48)
[2017-10-11 10:03] VITALS: PULSE 60
[2017-10-11] MEDS: Metoprolol(XL)Succ 50 MG Tablet PO (10:03)
--- NOTE | 2017-10-11 10:10 | PCM.PN.NEU ---
Patient Problems: Active and Suspected Problems (Last Updated 10/10/17 @ 17:59 by Jimmy Patiño DO) Aphasia (Acute) Subjective: The patient is awake and alert today. He reports that he feels normal except for some residual right-sided weakness. No other complaints. He wants to go home today. Denies stress or headaches. He says his last episode in 2007 was attributed to stress but he denies stress now. He says he was found by his boss. 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 He did show up for work which led to his coworkers looking for him. He takes Plavix at home daily. - Physical Exam General: Alert, Oriented x3, Cooperative, No apparent distress Neurological: Cranial nerves II-XII grossly intact Psych/Mental Status: Normal Affect Vital Signs Temp Pulse Resp BP Pulse Ox 36.6 C 60 16 120/65 96 10/11/17 06:50 10/11/17 10:03 10/11/17 06:50 10/11/17 06:50 10/11/17 06:50 Oxygen Flow Rate (L/min) 2 Oxygen Delivery Method Room Air Weight: 93.5 kg Body Mass Index (BMI) 26.4 Intake and Output for Last 24 Hours 10/09/17 10/10/17 10/11/17 23:59 23:59 23:59 Output Total 0 / 0 Balance 0 / 0 Laboratory Tests Past 24 Hrs 10/11/17 06:00 Triglycerides 199 Cholesterol 199 LDL Cholesterol 130 VLDL Cholesterol 40 HDL Cholesterol 29 L Current Medications Generic Name Dose Route Start Last Admin Trade Name Freq PRN Reason Stop Dose Admin Clopidogrel Bisulfate 75 mg 10/11/17 10:00 10/11/17 09:48 Plavix PO 75 mg DAILY AMANDEEP Administration Enoxaparin Sodium 40 mg 10/11/17 10:00 10/11/17 09:49 Lovenox SC Not Given DAILY@1000 [facility] Magnesium Hydroxide 30 ml 10/10/17 18:59 Milk Of Magnesia PO DAILY PRN PRN Constipation Metoprolol Succinate 50 mg 10/11/17 10:00 10/11/17 10:03 Toprol Xl (Beta Anselmo) PO 50 mg DAILY AMANDEEP Administration Pravastatin Sodium 40 mg 10/10/17 22:00 10/10/17 22:05 Pravachol PO Not Given QHS AMANDEEP Sodium Chloride 5 - 30 ml 10/10/17 19:12 10/11/17 09:48 IV 10 ml UD PRN Administration SALINE FLUSH Tizanidine HCl 4 mg 10/10/17 19:15 Zanaflex PO QHS PRN PRN MUSCLE SPASMS EEG normal MRI yesterday normal, reviewed Medical Necessity - Tobacco Use Smoking Status: Current every day smoker Tobacco Use: Cigarettes Assessment/Plan All Active Problems (Last Updated 10/10/17 @ 17:59 by Jimmy Patiño DO) Chest pain (Acute) Aphasia (Acute) MRI and in the setting of right-sided weakness and complete muteness with preservation of other language modalities consistent with conversion disorder now resolved. I would consider outpatient follow-up with psychiatry although at this point the patient denies any stressors. I think it is okay to discharge him to home on his current medications and follow-up in my office in 2 weeks.
--- NOTE | 2017-10-11 10:13 | PN.NEURO_ITS ---
Patient Problems: Active and Suspected Problems (Last Updated 10/10/17 @ 17:59 by Jimmy Patiño DO ) Aphasia (Acute) Subjective: The patient is awake and alert today. He reports that he feels normal except for some residual right-sided weakness. No other complaints. He wants to go home today. Denies stress or headaches. He says his last episode in 2007 was attributed to stress but he denies stress now. He says he was found by his boss. 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 He did show up for work which led to his coworkers looking for him. He takes Plavix at home daily. - Physical Exam General: Alert, Oriented x3, Cooperative, No apparent distress Neurological: Cranial nerves II-XII grossly intact Psych/Mental Status: Normal Affect Vital Signs Temp Pulse Resp BP Pulse Ox 36.6 C 60 16 120/65 96 10/11/17 06:50 10/11/17 10:03 10/11/17 06:50 10/11/17 06:50 10/11/17 06:50 Oxygen Flow Rate (L/min) 2 Oxygen Delivery Method Room Air Weight: 93.5 kg Body Mass Index (BMI) 26.4 Intake and Output for Last 24 Hours 10/09/17 10/10/17 10/11/17 23:59 23:59 23:59 Output Total 0 / 0 Balance 0 / 0 Laboratory Tests Past 24 Hrs 10/11/17 06:00 Triglycerides 199 Cholesterol 199 LDL Cholesterol 130 VLDL Cholesterol 40 HDL Cholesterol 29 L Current Medications Generic Name Dose Route Start Last Admin Trade Name Freq PRN Reason Stop Dose Admin Clopidogrel Bisulfate 75 mg 10/11/17 10:00 10/11/17 09:48 Plavix PO 75 mg DAILY AMANDEEP Administration Enoxaparin Sodium 40 mg 10/11/17 10:00 10/11/17 09:49 Lovenox SC Not Given DAILY@1000 [facility] Magnesium Hydroxide 30 ml 10/10/17 18:59 Milk Of Magnesia PO DAILY PRN PRN Constipation Metoprolol Succinate 50 mg 10/11/17 10:00 10/11/17 10:03 Toprol Xl (Beta Anselmo) PO 50 mg DAILY AMANDEEP Administration Pravastatin Sodium 40 mg 10/10/17 22:00 10/10/17 22:05 Pravachol PO Not Given QHS AMANDEEP Sodium Chloride 5 - 30 ml 10/10/17 19:12 10/11/17 09:48 IV 10 ml UD PRN Administration SALINE FLUSH Tizanidine HCl 4 mg 10/10/17 19:15 Zanaflex PO QHS PRN PRN MUSCLE SPASMS EEG normal MRI yesterday normal, reviewed Medical Necessity - Tobacco Use Smoking Status: Current every day smoker Tobacco Use: Cigarettes Assessment/Plan All Active Problems (Last Updated 10/10/17 @ 17:59 by Jimmy Patiño DO) Chest pain (Acute) Aphasia (Acute) MRI and in the setting of right-sided weakness and complete muteness with preservation of other language modalities consistent with conversion disorder now resolved. I would consider outpatient follow-up with psychiatry although at this point the patient denies any stressors. I think it is okay to discharge him to home on his current medications and follow-up in my office in 2 weeks.
--- NOTE | 2017-10-11 10:13 | EEG ---
- Electroencephalogram This is an 18 channel electroencephalogram performed on this 57-year-old male with sudden onset of right-sided weakness in mute and is within normal MRI. 18 channel electroencephalogram is performed utilizing the international 1020 electrode placement protocol. EKG reference leads and photic stimulation were also performed. The patient deferred hyperventilation. Background activity is 8-10 Hz symmetrically in the posterior leads with attenuation with eye opening. The patient experienced wakefulness as well as sleep during the recording without lateralizing or epileptiform changes. EKG rhythm strip recording is normal throughout the recording and photic stimulation generates a normal symmetric driving response. Impression: Normal awake and asleep electroencephalogram.
--- NOTE | 2017-10-11 10:15 | DCINST_ITS ---
- Discharge Diagnoses Current Active Problems: Current Active and Chronic Problems (Last Updated 10/10/17 @ 17:59 by Jimmy Patiño DO) Aphasia (Acute) Reason(s) for Visit for Discharge Instructions: Aphasia You will use the following diet at home:: Cardiac Your food should be the consistency of: Mechanical soft (ground) Your liquids should be the consistency of: Regular/Thin Discharge Activity: Return to Normal Activity Additional Instructions: You are advised to quit smoking. Continue to take all your medications. You should follow-up with neurology and cardiology within 2 weeks. Speech therapy recommended that you should be on a soft diet. Let your primary care doctor if you have swallowing concerns. Allergies/Adverse Reactions: Allergies aspirin Allergy (Verified 10/10/17 14:53) Swelling meperidine HCl [From Demerol] Allergy (Verified 10/10/17 14:53) Unknown Penicillins [PCN] Allergy (Verified 10/10/17 14:53) Hives Medications to take at Discharge Clopidogrel Bisulfate [Plavix] 75 mg PO DAILY 04/17/17 Metoprolol Succinate 50 mg PO DAILY 10/10/17 Pravastatin [Pravachol] 40 mg PO QHS 10/10/17 Tizanidine HCl 4 mg PO QHS PRN PRN 10/10/17 Primary Care Physician: Care Physician,No Primary [NON-STAFF] - Please follow up with your Primary Care Physician in: within 2 weeks Test Results: Test results from this visit will be discussed in further detail at your follow- up appointment, if applicable. Please Follow Up With: Jered Yoon MD When: on 10/16/17 at 3pm as scheduled Proposed Discharge Date: 10/11/17
--- NOTE | 2017-10-11 10:25 | DS.PCM_ITS ---
Discharge Date and Diagnosis Date of Admission: 10/10/17 Date of Discharge: 10/11/17 - Primary Discharge Diagnosis Active and Suspected Problems (Last Updated 10/10/17 @ 17:59 by Jimmy Patiño DO ) Aphasia (Acute) Oropharyngeal dysphagia, mild Suspected TIA Hospital Course and Treatment Imaging Results: Clinical Impression(s) from Imaging Studies Brain CT 10/10/17 14:39 IMPRESSION: Age-related changes, no acute findings CT is not sensitive for nonhemorrhagic infarct, if this is a strong clinical concern, recommend further evaluation with MRI N.B. : The above information has been verbally conveyed by Evgeny Spears MD to Gregorio Hester, Referring Physician, on 10/10/2017 14:56:04 (ET). Electronically Signed: Evgeny Spears MD at 14:57 EDT , Service support , Head CTA 10/10/17 14:39 IMPRESSION: No CTA evidence of significant plaque formation or carotid artery stenosis. Normal vertebral arteries. No suspicious enhancing lesion or narrowing or deviation or acute inflammatory changes noted. Left maxillary sinusitis Electronically Signed: Evgeny Spears MD at 15:10 EDT , Service support , Neck CTA 10/10/17 14:39 IMPRESSION: No CTA evidence of significant plaque formation or carotid artery stenosis. Normal vertebral arteries. No suspicious enhancing lesion or narrowing or deviation or acute inflammatory changes noted. Left maxillary sinusitis Electronically Signed: Evgeny Spears MD at 15:10 EDT , Service support , Brain MRI 10/10/17 14:57 IMPRESSION: Normal unenhanced MRI of the brain. Electronically Signed: Jovan Liu MD at 16:36 EDT , Service support , Neurology Operations: None Procedures: None Summary of Care Provided: The patient is a 57 year old M 10 dependence who comes in with inability to speak and generalized weakness. Patient was apparently have been a cigarette with a friend when he developed sudden onset of aphasia. He was brought to the emergency room and a stroke team was called. Workup included MRI of the brain, MRA head and neck were all unremarkable. Patient's apahsia resolved during the hospital stay. EEG was negative. he was seen by neurology and no recommendations made. He was seen by speech therapy on the morning of discharge and mild oropharyngeal dysphagia was diagnosed. He was put on soft diet by patient refused. Telemetry showed relative bradycardia, asymptomatic. Heart rate fluctuated between 39 and 52. Patient is on metoprolol 50mg daily. I offered to having back down on metoprolol to 25 daily, he refused and said is been tried before and blood pressure became elevated. Patient was insistent on leaving, referred to primary care doctor and cardiology for follow-up on bradycardia. Discharge Diet: Light diet - advance as tolerated, 6 Cup Fluid Restriction Discharge Activity: Return to Normal Activity Home Medications: Medications to take at Discharge Clopidogrel Bisulfate [Plavix] 75 mg PO DAILY 04/17/17 Metoprolol Succinate 50 mg PO DAILY 10/10/17 Pravastatin [Pravachol] 40 mg PO QHS 10/10/17 Tizanidine HCl 4 mg PO QHS PRN PRN 10/10/17 Primary Care Physician: Care Physician,No Primary [NON-STAFF] - Please follow up with your Primary Care Physician in: within 2 weeks Please Follow Up With: Jered Yoon MD When: on 10/16/17 at 3pm as scheduled Disposition: Home Minutes spent on discharge:: 40 Patient Condition:: Stable Medical Necessity - Tobacco Use Smoking Status: Current every day smoker Tobacco Use: Cigarettes Meaningful Use Info Meaningful Use Diagnoses (Choose all that apply): None applicable Code Visit OBSV E&M: 32624 Observation care discharge
[2017-10-11 10:40] VITALS: BP 132/61; PULSE 54; RESP 18; TEMP 36.6; O2SAT 97
[2017-10-11 10:46] VITALS: BMI 26.4
== END 2017-10-11 10:14 | disposition home or self-care (01) ==
LOC: ED 16:33 → PCU 18:41
PROVIDERS: Hospitalist; Emergency Provider Emergency Medicine; Family Provider Family Medicine; PCP Family Medicine; Visit Provider Internal Medicine
DX: R13.12 Dysphagia, oropharyngeal phase (principal); R00.1 Bradycardia, unspecified; R53.1 Weakness; R47.01 Aphasia; F17.210 Nicotine dependence, cigarettes, uncomplicated; I10 Essential (primary) hypertension; Z86.73 Personal history of transient ischemic attack (TIA), and cerebral infarction without residual deficits; Z79.02 Long term (current) use of antithrombotics/antiplatelets; Z79.899 Other long term (current) drug therapy; R29.710 NIHSS score 10
CPT/HCPCS: 36415; 70450; 70496; 70498; 70551; 80048; 80061; 82962; 85025; 85610; 85730; 93005; 96374; 96375; 99218; 99285; J7030; Q9967; A4216; G0378

== ENCOUNTER → 2017-11-05 10:52 | Outpatient (CLI) | payer MEDICARE, SELFPAY | PROVIDERS: PCP Family Medicine; Visit Provider Internal Medicine Cardiovascular Disease | DX: R06.02 Shortness of breath (principal) | CPT/HCPCS: 93306; A4216 ==

== ENCOUNTER → 2017-11-07 12:21 | Outpatient (CLI) | payer MEDICARE, SELFPAY | PROVIDERS: PCP Family Medicine; Visit Provider Internal Medicine Cardiovascular Disease | DX: R06.02 Shortness of breath (principal); Z72.0 Tobacco use; R07.9 Chest pain, unspecified; I10 Essential (primary) hypertension | CPT/HCPCS: 93017; 93350; J7030; A4216 ==

== ENCOUNTER 2018-06-26 07:00 | Day surgery (SDC) | payer MEDICARE, SELFPAY ==
[2018-05-03 13:15] VITALS: BMI 29.1
[2018-06-19 10:45] VITALS: BMI 28.8
--- NOTE | 2018-06-20 09:25 | RAD_ITS ---
STUDY: X-RAY CHEST REASON FOR EXAM: Male, 58 years old. Chest pain. TECHNIQUE: PA and lateral views of the chest. COMPARISON: 01/02/2017. FINDINGS: The lungs are clear and expanded. There is no demonstrated pleural abnormality. Normal size heart. Normal mediastinum and alondra. Normal visualized pulmonary arteries. Normal visualized aortic arch and descending thoracic aorta. Normal visualized thoracic spine. Normal visualized ribs, clavicles, and shoulders. There is no demonstrated abnormality of the visualized soft tissue structures of the upper abdomen. RAD/Chest PA and Lateral IMPRESSION: No active pulmonary disease. Electronically Signed: Abran Feliz MD at 9:35 EDT Tel , Service support ,
[2018-06-20 10:31] LABS: Anion Gap 7 (5-15); BUN 10 mg/dL (7-18); BUN/Creat Ratio 11.4 RATIO (10-20); Calcium,Total 8.3 mg/dL (8.5-10.1); Chloride 106 mmol/L (98-107); Creatinine, Serum 0.87 mg/dL (0.70-1.30); EST Glomerular Filtration Rate 96 mL/min (>60); Est Glom Filt Rate - Afr Amer 116 mL/min (>60); Glucose 123 mg/dL (74-106); Potassium 3.7 mmol/L (3.5-5.1); Sodium Level 139 mmol/L (136-145); T4 Total, Thyroxin 6.7 ug/dL (4.5-12.1)
[2018-06-20 11:30] LABS: Hematocrit 44.1 % (40-54); Hemoglobin 15.1 g/dl (13.0-16.5); Mean Corp Hgb Conc 34.2 g/gl (32-36); Mean Corpuscular Hgb 33.1 pg (27.0-32.0); Mean Corpuscular Volume 96.7 fL (80-94); Red Blood Count 4.56 M/mm3 (4.6-6.2); White Blood Count 4.7 K/mm3 (4.4-11.0)
[2018-06-20 11:31] LABS: Absolute Neutrophil Count 2.1 X10^3/uL (2.0-7.7); Basophil% 0.2 % (0-1); Eosinophils% 4.7 % (0-5); Lymphocyte # 2.02 X10^3/ul (4.0); Lymphocyte % 43.3 % (19-41); Mean Platelet Vol. 11.4 fl (6.2-12.0); Monocyte% 7.3 % (0-10); Neutrophil # 2.06 X10^3/uL (2.7-7.7); Neutrophil % 44.3 % (47-70); POSITIVE COUNT NO; POSITIVE DIFFERENTIAL NO; POSITIVE MORPHOLOGY NO; Platelet Count 204 K/mm3 (150-450); RBC Distribution Width CV 12.5 % (11.6-14.6)
[2018-06-20 11:32] LABS: Absolute Lymphocyte Count 2.02 X10^3/ul (0.83-4.51); Basophil# 0.01 X10^3/uL; Eosinophil# 0.22 X10^3/uL; Monocyte# 0.34 X10^3/uL; Prothrombin Time (Protime)PT. 12.7 SECONDS (11.7-14.9)
--- NOTE | 2018-06-20 15:33 | HP_ITS ---
HPI HPI Surgical H&P: Yes Details: Details: MILTON ALEGRE, is a 58 M who presents to the office today for a cardiovascular follow up. He has a history of mild CAD, hypertension, hypercholesterolemia. He did have a CVA in 2008 and a TIA in 2018. With patient's recent TIA we did obtain a 30-day event monitor as patient had complained of fluttering. Ventricular tachycardia was noted on his event monitor. Patient did have a stress test last year that was negative for ischemia Pt sts that he continues to chest pain. He sts that this is not brought on by anything in particular. This discomfort is usually at rest. It occurs approx twice a month. This is not new and similar to what he has had previously. He sts that he continue feels his heart is fluttering then he has the chest pain. He does not have any worsening SOB. He does not have any palpitations. He does not have any lightheadedness/dizziness. He does not have any edema. He does not exercise routinely. He does complain of his legs aches. He is currently on disability. Intake Vital Signs 06/19/18 Height 6 ft 2 in 06/19/18 Weight: 225 lb 06/19/18 Body Mass Index (BMI) 28.8 06/19/18 Blood Pressure 132/82 H 06/19/18 Blood Pressure Location Lt brachial 06/19/18 Blood Pressure Position Sitting 06/19/18 Respiratory Rate 18 06/19/18 Pulse Rate 62 06/19/18 Pulse Source Monitor 06/19/18 Pulse Ox 95 Intake Visit Reasons: PER MMM (MONITOR) Bilingual Customer Service Specialist Required: No Accompanied by: none Is patient in pain?: No Allergies aspirin Allergy (Severe, Verified 06/19/18 10:46) Hives Penicillins [PCN] Allergy (Verified 06/19/18 10:46) Hives meperidine HCl [From Demerol] Adverse Reaction (Severe, Verified 06/19/18 10:46) Behavior change Medications clopidogrel 75 mg tablet 75 mg PO DAILY #90 tab 10/16/17 [Rx Confirmed 06/19/18] metoprolol succinate ER 50 mg tablet,extended release 24 hr 50 mg PO DAILY #90 tab 10/16/17 [Rx Confirmed 06/19/18] pravastatin 40 mg tablet 40 mg PO QHS #90 tab 10/16/17 [Rx Confirmed 06/19/18] nitroglycerin 0.4 mg sublingual tablet 0.4 mg SUBLINGUAL Q5-15M PRN #25 tab 05/03/18 [Rx Confirmed 06/19/18] nitroglycerin 0.4 mg sublingual tablet 0.4 mg SUBLINGUAL Q5-15M PRN #25 tab 06/19/18 [Rx Confirmed 06/19/18] PFSH Medical History Ventricular tachycardia seen on radiation monitor (Acute) History of TIA (transient ischemic attack) (Chronic 10/10/17) Tobacco abuse (Chronic) Shortness of breath (Chronic) Bradycardia (Chronic) Hypertension (Chronic) Aphasia (Resolved) Chest pain (Resolved) TIA (transient ischemic attack) (Resolved) Surgical History History of left heart catheterization (Chronic 02/14/07) Social History Smoking Status: Current every day smoker ROS Const Const: Positive for fatigue (continues); negative for weakness, frequent falls, excessive sweating, weight gain or weight loss Eyes Eyes: Negative for transient loss of vision, blurry vision or change in vision ENT ENT: Negative for dizziness or balance problems Cardio Chest Pain: Yes Palpitations: Yes (occasional) feels like its: other (flutter) Edema: None Muscle aches with walking: None Resp Respiratory: Negative for SOB with activity or SOB at rest GI GI: Negative vomiting or vomiting blood/hematemesis : Negative for hematuria Musc Musc: Negative for balance problems Skin Skin: Negative non-healing lesions or rash Neuro Neuro: Negative for dizziness, frequent falls, weakness or blurry vision Rudy Hematologic/Lymphatic: Negative for easy bleeding Endo Endo: Positive for fatigue (continues); negative for excessive sweating Psych Psych: Negative for anxiety or depression Allergy Allergy/Immunology: Negative for rash Cardiology Exam Const Appearance: cooperative, healthy appearing and no acute distress Nutritional Appearance: well nourished Orientation: alert, oriented x3 and oriented to person Head Head: normal to inspection, normocephalic and atraumatic Nose: external nose normal Face and Sinus: face symmetric Mouth: oral mucosae normal Eyes General: appearance normal, both eyes and all related structures Eyelids: eyelids normal Conjunctivae: conjunctivae normal Pupils: PERRL and normal by confrontation EOM: EOM intact bilaterally Neck Neck: normal visual inspection and full ROM Carotids: normal carotid upstroke Chest Chest inspection: normal inspection of the chest Auscultation: Bilateral: Clear to Auscultation Cardio Palpation: normal PMI Rate: regular rate Rhythm: regular rhythm Heart sounds: S1 normal and S2 normal GI GI: normal to inspection, no hepatosplenomegaly and bowel sounds present Neuro General: alert, awake, oriented x3, CN's II-XI intact bilaterally and moves all extremities Skin Skin: no rashes or lesions noted Extremities Pulses: Normal: Right Femoral Pulse, Left Femoral Pulse, Right Dorsalis Pedis Pulse, Left Dorsalis Pedis Pulse, Right Posterior Tibial Pulse, Left Posterior Tibial Pulse, Right Radial Pulse, Left Radial Pulse Lower Extremity Edema: None: Bilateral Psych Psychological: normal affect Assessment & Plan 1. Ventricular tachycardia seen on radiation monitor I47.2 Plan Patient did have ventricular tachycardia that was noted on his event monitor. He was aware of palpitations. He does not know if the times correlated. He did have a stress test last year which was negative for ischemia. With his recent negative stress test and ventricular tachycardia would like to proceed with a diagnostic heart catheterization. Patient is agreeable to proceed with this. This will be scheduled for the near future. Orders Orders: 12 Lead EKG performed by ERIC 06/19/18 2. Essential hypertension I10 Plan Adequately controlled on current medications. Will not make any adjust 3. History of TIA (transient ischemic attack) Z86.73 Plan Patient will continue with his Plavix. 4. 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 He does have diminished pulses. After his heart catheterization will consider obtaining ABIs. Also suspect that this could be likely related to his back injury per Plan Detail Other Medications New: nitroglycerin until response; do not exceed 3 doses per episode 0.4 mg Sublingual Q5-15M PRN 25 tabs 3RF chest pain Additional Comments Thank you for allowing us to participate in patient's plan of care, if you have any questions please do not hesitate to call. This note was generated using a voice recognition system and there may be incorrect words, spelling or punctuation errors that were not noted when reviewing the office note prior to saving. 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 Stage I diastolic dysfunction, trivial mitral and tricuspid insufficiency. RVSP 28 mmHg Stress echocardiogram in 2018 demonstrated: The estimated ejection fraction is 65 %. Normal, adequate, dobutamine echocardiogram. Negative for ischemia by EKG and echocardiographic criteria. Patient did develop chest pain during infusion which is a nonspecific finding given dobutamine. Rare PVCs noted. Appropriate blood pressure response to dobutamine. Final LVEF is 75%. Test terminated due to the attainment of target heart rate. No complications. Labs LDL Cholesterol 130 mg/dL (0-130) 10/11/17 HDL Cholesterol 29 mg/dL (40-) L 10/11/17 Triglycerides 199 mg/dL (-199) 10/11/17 VLDL Cholesterol 40 mg/dL (5-40) 10/11/17 Diagnostics Electrocardiogram 06/19/18 Echocardiogram 11/05/17 Stress Echocardiogram 11/07/17 Chest X-Ray 06/20/18
[2018-06-25 09:37] VITALS: BMI 28.8
--- NOTE | 2018-06-26 12:30 | CL.D_ITS ---
Patient Name: MILTON ALEGRE Study Date: 06/26/2018 Performing: Jered Yoon MD Ht: 74.01 inches 188 cm : 1960 Wt: 224.87 lbs 102 kg Age: 58 Gender: male BSA: 2.28 PROCEDURE(S) PERFORMED [id number]/LV CLINICAL PROFILE AND INDICATIONS Indications: New Onset Angina <= 2 months, Suspected CAD Heart Failure: None Stress/Imaging Stress Echocardiogram: Yes Result: NegativeStress Echocardiogram: Negative Angina Classification Anginal Classification w/in 2 Weeks: CCS III CAD Presentations: Symptom unlikely to be ischemic. Comorbidities/Risk Factors: Hypertension Dyslipidemia Cerebrovascular Disease CONCLUSIONS Normal coronary arteries Normal LV size, wall motion,and systolic function Perserved Left Ventricular systolic function with normal EDP LVEF: by LV gram 65 % RECOMMENDATIONS Management as per referring [employer] Manual sheath removal. DESCRIPTION OF PROCEDURE The patient arrived to the procedure lab. The risks and benefits of the procedure as well as a full d escription of our services here and current unavailability of surgical backup were fully explained to the patient and/or their significant other prior to the catheterization. The Timeout was completed, verifying the correct patient and procedure. The patient's procedural site was prepped and draped in the usual fashion. Local anesthetic was given subcutaneously to right groin region with Lidocaine 2%. Using a modified Seldinger technique, arterial access was obtained via the right femoral artery, a 4 Fr sheath was inserted Left Coronary Artery selective angiography was performed in multiple views us ing a 4 Fr. JL5 catheter. Right Coronary Artery selective angiography was then performed in multiple views using a 4 Fr. 3DRC catheter. Left Ventriculography was performed in COLLINS projection using a 4 Fr . Pigtail catheter. LV to AO pullback pressures were then recorded.The arterial sheath was pulled and manual compression applied until hemostasis is achieved. CORONARY ANGIOGRAPHY DOMINANCE: Right Dominant LEFT HEART ASSESSMENT Left Ventricular Ejection Fraction: by LV Gram 65 % Normal LV wall motion Normal Left Ventricular systolic function Normal Left Ventricular systolic function LEFT MAIN: Angiographically normal LEFT ANTERIOR DECENDING ARTERY: Angiographically normal CIRCUMFLEX ARTERY: Angiographically normal RIGHT CORONARY ARTERY: Angiographically normal COMPLICATIONS No Complications PROCEDURE MEDICATIONS Versed 1 mg IV Oxygen: 2 L/min via nasal cannula SUMMARY OF HEMODYNAMIC DATA Time AIR REST ECG 09:05:53 AO 115/70 (88) SA 09:34:37 LV 126/-8, 14 09:39:00 LV 134/-8, 13 09:39:06 LVp 128/-13, 12 09:39:10 AOp 134/70 (96) 09:39:15 Signed By Jered Yoon MD On 06/26/2018 12:29:53 PM Jered Yoon MD
== END 2018-06-26 14:00 | disposition home or self-care (01) ==
LOC: CLSP 07:02
PROVIDERS: Family Provider Family Medicine; PCP Family Medicine; Referring Provider Internal Medicine Cardiovascular Disease; Visit Provider Internal Medicine Cardiovascular Disease
DX: I47.2 Ventricular tachycardia (principal); I73.9 Peripheral vascular disease, unspecified; I10 Essential (primary) hypertension; I25.10 Atherosclerotic heart disease of native coronary artery without angina pectoris; E78.00 Pure hypercholesterolemia, unspecified; F17.200 Nicotine dependence, unspecified, uncomplicated; Z79.01 Long term (current) use of anticoagulants; Z79.899 Other long term (current) drug therapy; Z86.73 Personal history of transient ischemic attack (TIA), and cerebral infarction without residual deficits
CPT/HCPCS: 36415; 71046; 80048; 83735; 84436; 85025; 85610; 85730; 93458; 99152; J7040; C1769; C1894; Q9967

== ENCOUNTER 2021-04-11 10:57 | Emergency (ER) | payer MEDICARE, MEDICAID, SELFPAY ==
[2021-04-11 10:57] VITALS: BP 140/78; PULSE 77; RESP 18; TEMP 36.1; O2SAT 94; BMI 27.2
[2021-04-11 11:09] VITALS: BP 140/78; PULSE 71; RESP 28; TEMP 36.1; O2SAT 90
--- NOTE | 2021-04-11 11:35 | EKG12_ITS ---
Test Reason : SOB Blood Pressure : / mmHG Vent. Rate : 068 BPM Atrial Rate : 068 BPM P-R Int : 156 ms QRS Dur : 090 ms QT Int : 424 ms P-R-T Axes : 060 011 039 degrees QTc Int : 450 ms Normal sinus rhythm Normal ECG Confirmed by NANCY JARRETT, GADIEL ([id number]), clinical editor KHALIDA NEAL ([id number]) on 04/12/2021 9:56:38 AM Referred By: PL Confirmed By:GADIEL CRUZ MD
--- NOTE | 2021-04-11 11:36 | EDS_ITS ---
HPI History of Present Illness Chief Complaint: General Illness Informant: patient Narrative Narrative: Patient presents with 1-1/2 to 2 weeks of symptoms. He states he has cough but brings up mostly clear sputum. He has had fevers and chills and myalgias diffusely. He states he really does not have chest pain is just that he hurts all over. He has had diarrhea but no nausea or vomiting. However, he has a very poor appetite and is not eating or drinking a lot. However he is able to eat and drink. He has not had any Covid vaccines. He has not yet been tested for Covid but assumed that is what he had. He states he is not worse today he is just not getting better and he is approaching 2 weeks that he has had this. Nothing specifically makes it better or worse. [facility] Medical History (Updated 04/11/21 @ 14:[address] Nathan Alonzo MD) Aphasia Bradycardia Chest pain History of TIA (transient ischemic attack) (10/10/17) Hypertension Shortness of breath TIA (transient ischemic attack) Tobacco abuse Ventricular tachycardia seen on monitoring and evaluation advisor Home Medications metoprolol succinate 25 mg tablet,extended release 24 hr 25 mg PO DAILY #90 tab 12/07/20 [Rx Last Taken Unknown] nitroglycerin 0.4 mg sublingual tablet 0.4 mg SUBLINGUAL Q5-15M PRN #25 tab 12/07/20 [Rx Last Taken Unknown] rosuvastatin 10 mg tablet 10 mg PO DAILY tab 12/07/20 [History Last Taken Unknown] clopidogrel 75 mg tablet 75 mg PO DAILY #90 tab 02/14/21 [Rx Last Taken Unknown] ondansetron 4 mg PO Q8H PRN #10 tab 04/11/21 [Rx Last Taken Unknown] Allergy/AdvReac Type Severity Reaction Status Date / Time aspirin Allergy Severe Hives Verified 04/11/21 10:57 Penicillins [PCN] Allergy Hives Verified 04/11/21 10:57 meperidine HCl [From Demerol] AdvReac Severe Behavior Verified 04/11/21 10:57 change Surgical History History of left heart catheterization (06/26/18) Social History Smoking Status: Current every day smoker tobacco type: cigarettes ROS ROS ED Constitutional Constitutional ED: Reports chills, fever(s) and subjective Eyes Eyes: Denies blurry vision ENT ENT ED: Reports rhinorrhea; Denies sore throat Cardiovascular Cardiovascular: Denies chest pain or palpitations Respiratory/Chest Respiratory/Chest: Reports cough, dyspnea, sputum and other Details: Very mild dyspnea. Although he complains more of cough myalgias and generalized malaise and dyspnea. Gastrointestinal Gastrointestinal: Reports diarrhea; Denies abdominal pain, constipation, nausea or vomiting Genitourinary Genitourinary ED: Denies dysuria Musculoskeletal Musculoskeletal: Reports myalgias Integumentary Denies rash Neurologic Neurologic: Denies headache(s) Psychiatric Psychiatric: Denies depression Endocrine Endocrinology: Denies polydipsia or polyuria Allergic/Immunologic Allergic/Immunologic ED: Denies mouth swelling or urticaria EXAM Physical Exam Const Vital Signs: 04/11/21 10:57 04/11/21 11:08 04/11/21 11:09 Temperature 97.0 F L 97.0 F L Temperature Source Temporal Temporal Pulse Rate 77 71 Respiratory Rate 18 28 H Respiratory Effort Short of Breath Respiratory Pattern Normal Blood Pressure 140/78 H 140/78 H Blood Pressure Mean 98 98 Pulse Ox 94 90 Oxygen Delivery Method Room Air Room Air 04/11/21 13:00 Temperature 99.0 F Temperature Source Oral Pulse Rate 66 Respiratory Rate 20 H Respiratory Effort Respiratory Pattern Blood Pressure 126/67 H Blood Pressure Mean 86 Pulse Ox 92 Oxygen Delivery Method Room Air Positive well nourished and well developed General Appearance ED: well developed and NAD; Negative for cyanotic or diaphoretic HEENT Reports moist mucous membranes Negative for trauma Eyes General Eye ED: Negative for pale conjunctiva or scleral icterus Neck no JVD Chest Wall inspection of chest normal Resp normal respiratory effort and No clear to auscultation bilaterally Resp Narrative: My basilar rhonchi. Effort and Inspection: Negative for pain with movement Auscultation: rhonchi; Negative for rales or wheezes Cardio regular rate and regular rhythm GI normal to inspection, nondistended, normoactive bowel sounds and non-tender; Negative for non-distended Auscultation: normoactive bowel sounds Palpation: soft Back/Spine no CVA tenderness Extremity normal to inspection General Extremety ED: Negative for edema or tenderness General Extremity: Negative for edema Skin no rashes or lesions noted MDM MDM MDM Narrative Medical decision making narrative: Patient's white count is toward the lower end. Overall CBC is relatively normal. Electrolytes show minimal drop in sodium potassium. Troponin is negative. COVID-19 was done through PCR and is detected. Patient does have some patchy infiltrates consistent with Covid. Patient wants to go home. His saturations are about 92 to 3% while I am in the room. His biggest complaint is the decreased appetite and possible mild nausea. I will give him Zofran for this. We will walk him. As long as his oxygen level is good we will get him home. If not I still think he is a candidate for home oxygen. Lab Data Attestation: I reviewed the patient's lab results. Labs: Laboratory Results - last 24 hr 04/11/21 04/11/21 04/11/21 11:20 11:20 11:41 WBC 4.7 RBC 4.36 L Hgb 14.0 Hct 41.0 MCV 94.0 MCH 32.1 H MCHC 34.1 RDW Std Deviation 42.9 RDW Coeff of Mary 12.3 Plt Count 204 MPV 10.6 Immature Gran % (Auto) 0.900 Neut % (Auto) 63.9 Lymph % (Auto) 23.7 Gilmer % (Auto) 10.9 H Eos % (Auto) 0.2 Baso % (Auto) 0.4 Absolute Neuts (auto) 3.0 Absolute Lymphs (auto) 1.11 Nucleated RBC % 0 Sodium 135 L Potassium 3.4 L Chloride 99 Carbon Dioxide 27.0 Anion Gap 9 BUN 13 Creatinine 0.71 Estim Creat Clear Calc 130.25 Est GFR (MDRD) Af Amer 145 Est GFR (MDRD) Non-Af 120 BUN/Creatinine Ratio 18.2 Glucose 97 Calcium 8.1 L Troponin I High Sens 10 COVID-19 (TARI) Detected Radiography Diagnostic Testing: Clinical Impression(s) from Imaging Studies Chest X-Ray 04/11/21 12:20 IMPRESSION: Bilateral patchy pulmonary infiltrates worse in the right hemithorax. Pneumonitis associated with Covid should be ruled out. Electronically Signed: Bill Finnegan MD at 12:37 EST , Service support , Discharge Plan Triage Chief Complaint: General Illness ED Provider: Nathan Alonzo Dx/Rx/DC Orders Clinical Impression: 2019 novel coronavirus-infected pneumonia (NCIP) Instructions: Coronavirus Disease 2019 (COVID-19): Caring for Yourself or Others Prescriptions: New ondansetron 4 mg tablet,disintegrating 4 mg PO Q8H PRN (Reason: nausea and vomiting) Qty: 10 RF: 0 No Action metoprolol succinate 25 mg tablet extended release 24 hr 25 mg PO DAILY Qty: 90 RF: 3 nitroglycerin 0.4 mg tablet, sublingual 0.4 mg SUBLINGUAL Q5-15M PRN (Reason: chest pain) Qty: 25 RF: 3 rosuvastatin 10 mg tablet 10 mg PO DAILY RF: 0 clopidogrel 75 mg tablet 75 mg PO DAILY Qty: 90 RF: 3 Primary Care Provider: Maurilio Pabon Referrals: Maurilio Pabon MD [Primary Care Provider] - 3-5 Days if not improving Disposition Disposition: Home, Self Care
[2021-04-11 12:03] LABS: Absolute Lymphocyte Count 1.11 X10^3/uL (0.83-4.51); Basophil# 0.02 X10^3/uL; Basophil% 0.4 % (0-1); Eosinophil# 0.01 X10^3/uL; Eosinophils% 0.2 % (0-5); Lymphocyte # 1.11 X10^3/ul (0.83-4.51); Lymphocyte % 23.7 % (19-41); Mean Corp Hgb Conc 34.1 g/dL (32-36); Mean Corpuscular Hgb 32.1 pg (27.0-32.0); Mean Platelet Vol. 10.6 fl (6.2-12.0); Monocyte# 0.51 X10^3/uL; Monocyte% 10.9 % (0-10); NRBC Flagged by Analyzer 0 % (0-5); Neutrophil % 63.9 % (47-70); Platelet Count 204 K/mm3 (150-450); RBC Distribution Width CV 12.3 % (11.6-14.6); RBC Distribution Width SD 42.9 fl (35.1-43.9); Red Blood Count 4.36 M/mm3 (4.6-6.2); White Blood Count 4.7 K/mm3 (4.4-11.0)
--- NOTE | 2021-04-11 12:20 | RAD_ITS ---
STUDY: X-RAY CHEST REASON FOR EXAM: Male, 60 years old. Cough TECHNIQUE: Single AP portable view of the chest. COMPARISON: Comparison is made with prior study dated 06/20/2018. FINDINGS: EKG electrodes are seen. Patchy infiltrates are seen in both lungs. Pneumonitis associated with Covid should be ruled out. There is no demonstrated pleural abnormality. Normal size heart. Normal mediastinum and alondra. Normal visualized pulmonary arteries. Normal visualized aortic arch and descending thoracic aorta. There are diffuse degenerative changes of the visualized thoracic spine. Normal visualized ribs, clavicles, and shoulders. There is no demonstrated abnormality of the visualized soft tissue structures of the upper abdomen. RAD/Chest 1 View (Portable) IMPRESSION: Bilateral patchy pulmonary infiltrates worse in the right hemithorax. Pneumonitis associated with Covid should be ruled out. Electronically Signed: Bill Finnegan MD at 12:37 EST , Service support ,
[2021-04-11 12:34] LABS: Anion Gap 9 (5-15); BUN 13 mg/dL (7-18); BUN/Creat Ratio 18.2 RATIO (10-20); Calcium,Total 8.1 mg/dL (8.5-10.1); Chloride 99 mmol/L (98-107); Creatinine, Serum 0.71 mg/dL (0.70-1.30); EST Glomerular Filtration Rate 120 mL/min (>60); Est Glom Filt Rate - Afr Amer 145 mL/min (>60); Estimated Creatinine Clearance 130.25 ml/min; Glucose 97 mg/dL (74-106); Potassium 3.4 mmol/L (3.5-5.1); Sodium Level 135 mmol/L (136-145); Troponin-I HS 10 pg/mL (3.0-78.0)
[2021-04-11 13:00] VITALS: BP 126/67; PULSE 65; PULSE 66; RESP 20; TEMP 37.2; O2SAT 92
[2021-04-11 15:33] VITALS: O2SAT 93
[2021-04-11 15:34] VITALS: BP 116/78
== END 2021-04-11 15:37 | disposition home or self-care (01) ==
PROVIDERS: Emergency Provider Emergency Medicine; PCP Family Medicine; Visit Provider Emergency Medicine
DX: U07.1 COVID-19 (principal); J12.82 Pneumonia due to coronavirus disease 2019; I10 Essential (primary) hypertension; F17.210 Nicotine dependence, cigarettes, uncomplicated; Z79.02 Long term (current) use of antithrombotics/antiplatelets; Z79.899 Other long term (current) drug therapy; Z86.73 Personal history of transient ischemic attack (TIA), and cerebral infarction without residual deficits
CPT/HCPCS: 71045; 80048; 84484; 85025; 87635; 87804; 93005; 99283; A4216; U0003; U0005

== ENCOUNTER → 2021-12-21 | Outpatient (CLI) | payer MEDICARE, MEDICAID, SELFPAY ==
--- NOTE | 2021-12-21 07:54 | CDU_ITS ---
Reason For Study: SYNCOPE Rt. Velocities/BP Lt. Velocities/BP Prox CCA 86.3/27.7 cm/sec. Prox CCA 91.9/30.5 cm/sec. Mid CCA 74.9/23.9 cm/sec. Mid CCA 87.2/26.7 cm/sec. Dist CCA 74.0/27.7 cm/sec. Dist CCA 72.1/20.1 cm/sec. Prox ICA 47.9/17.9 cm/sec. Prox ICA 65.5/22.0 cm/sec. Mid ICA 87.2/31.1 cm/sec. Mid ICA 69.2/26.7 cm/sec. Dist ICA 75.1/32.2 cm/sec. Dist ICA 68.3/24.8 cm/sec. Rt. ICA/CCA = 1.2. Lt. ICA/CCA = 0.8. Prox ECA 93.8/16.8 cm/sec. Prox ECA 119.3/27.9 cm/sec. Rt. Vert. 59.6/19.5 cm/sec. Lt. Vert. 45.0/13.8 cm/sec. Right Extracranial There is intimal thickening but no significant atherosclerotic plaque noted in the right common carotid artery. There is heterogeneous, irregular atherosclerotic plaque noted in the right internal carotid artery. There is homogeneous, irregular atherosclerotic plaque noted in the right external carotid artery. Antegrade flow is noted in the right vertebral artery. Left Extracranial There is heterogeneous, smooth atherosclerotic plaque noted in the left common carotid artery. There is heterogeneous, smooth atherosclerotic plaque noted in the left internal carotid artery. There is intimal thickening but no significant atherosclerotic plaque noted in the left external carotid artery. Antegrade flow is noted in the left vertebral artery. Procedure Carotid Duplex 03167. This is a Carotid Duplex examination using B-mode, color flow and specral Doppler. The exam was diagnostic. Exam performed in department. VL/Carotid Duplex Ultrasound Interpretation Summary Mild (<50%) stenosis right extracranial internal carotid. Mild (<50%) stenosis left extracranial internal carotid. Patent and antegrade vertebrals bilaterally. Ordering Physician: Yoana Molina Referring Physician: Yoana Molina Performed By: Ayaz Young RVT
== END | disposition home or self-care (01) ==
LOC: CVS 07:54
PROVIDERS: PCP Family Medicine; Referring Provider Physician Assistant Medical; Visit Provider Physician Assistant Medical
DX: R55 Syncope and collapse (principal); R00.1 Bradycardia, unspecified; I10 Essential (primary) hypertension; I47.20 Ventricular tachycardia, unspecified; Z86.73 Personal history of transient ischemic attack (TIA), and cerebral infarction without residual deficits
CPT/HCPCS: 93880

== ENCOUNTER → 2023-07-24 | Outpatient (CLI) | payer MEDICARE, MEDICAID, SELFPAY ==
--- NOTE | 2023-07-24 07:25 | ART_ITS ---
Reason For Study: Decreased Pedal Pulses Procedure A bilateral lower extremity continuous wave Doppler with analog waveform analysis,segmental pressures,and ankle brachial indexes without exercise. Left Segmental Pressures Left brachial= 117mmHg. Left thigh = 124mmHg. Left calf = 139mmHg. Left posterior tibial artery = 136mmHg. Left dorsalis pedis artery = 125mmHg. Left digit = 136 mmHg. The left posterior tibial artery waveforms are biphasic. The left dorsalis pedis waveforms are biphasic. Right Segmental Pressures Right brachial= 170mmHg. Right posterior tibial artery = 172mmHg. Right dorsalis pedis artery = 173mmHg. Right digit = 169 mmHg. The right posterior tibial artery waveforms are triphasic. The right dorsalis pedis waveforms are triphasic. Indices The right ankle brachial index by the posterior tibial artery is 1.01. The right ankle brachial index by the dorsalis pedis is 1.02. The right digital-brachial index is 0.99. The left ankle brachial index by the posterior tibial artery is 0.80. The left ankle brachial index by the dorsalis pedis is 0.74. The left digital-brachial index is 0.80. VL/Lower Ext Art Exam w/o Exercis Interpretation Summary Right MADHURI 1.02, normal. TBI and Doppler/PVR waveforms of the right leg normal a t rest. Left MADHURI 0.8, moderate arterial insufficiency. Doppler/PVR waveforms and segmen mirta pressures reveal [id number] femoral disease. Ordering Physician: Yoana Alvarenga Referring Physician: YOANA ALVARENGA Performed By: Reyes Young RVCeleste
== END | disposition home or self-care (01) ==
PROVIDERS: PCP Family Medicine; Referring Provider Physician Assistant Medical; Visit Provider Physician Assistant Medical
DX: I73.9 Peripheral vascular disease, unspecified (principal); R07.9 Chest pain, unspecified
CPT/HCPCS: 93923; A4216; J2785

== ENCOUNTER → 2023-09-06 | Outpatient (CLI) | payer MEDICARE, MEDICAID, SELFPAY ==
--- NOTE | 2023-09-06 12:35 | VDLE_ITS ---
Reason For Study: Bilateral leg pain RIGHT LEFT CFV is compressible, spontaneous, phasic, CFV is compressible, spontaneous, phasic, competent and demonstrates normal competent, and demonstrates normal augmentation. augmentation. FV is compressible, spontaneous, phasic, FV is compressible, spontaneous, phasic, competent and demonstrates normal competent and demonstrates normal augmentation. augmentation. POP V is compressible, spontaneous, phasic, POP V is compressible, spontaneous, phasic, competent and demonstrates normal competent and demonstrates normal augmentation. augmentation. T/P Trunk is compressible. T/P Trunk is compressible. PTV is compressible. PTV is compressible. RT PerV is compressible. LT PerV is compressible. SFJ is INCOMPETENT and measures 0.66 x 0.74 SFJ is competent and measures 0.65 x 0.59 cm. cm. GSV proximal thigh measures 0.37 x 0.37 cm. GSV proximal thigh measures 0.37 x 0.37 cm. GSV at knee measures 0.46 x 0.45 cm. GSV at knee measures 0.40 x 0.44 cm. GSV INCOMPETENT throughout for greater than GSV INCOMPETENT throughout for greater than 0.5 seconds. 0.5 seconds. ASV proximal calf is INCOMPETENT for greater SSV proximal calf is competent and measures than 0.5 seconds and measures 0.33 x 0.38 cm. 0.28 x 0.30 cm. SSV proximal calf is INCOMPETENT for greater Procedure than 0.5 seconds and measures 0.06 x 0.08 cm. This is a venous duplex using B-mode, color flow and spectral Doppler. Exam performed in department. Patient was scanned in reverse Trendelenburg position during reflux assessment. VL/Venous Duplex US - Wilman Extrem Interpretation Summary Deep veins of the bilateral lower extremities are patent and compressible segme ntally. There is no evidence of bilateral lower extremity deep vein thrombosis. The bilateral great saphenous veins appear patent and compressible segmentally. Positive for reflux in the right saphenofemoral junction, great saphenous vein throughout. Positive for reflux in the left great saphenous vein throughout, accessory saph enous vein in calf, small saphenous vein. Ordering Physician: Rosa Monteiro Referring Physician: Vineet Pabon Performed By: Thi Ceballos RVT
== END | disposition home or self-care (01) ==
LOC: CVS 12:35
PROVIDERS: PCP Family Medicine; Referring Provider Physician Assistant; Visit Provider Physician Assistant
DX: M79.605 Pain in left leg (principal); M79.604 Pain in right leg
CPT/HCPCS: 93970

== ENCOUNTER 2023-10-18 16:00 | Outpatient (RCR) | payer MEDICARE, MEDICAID, SELFPAY | END 2023-10-18 19:00 | disposition home or self-care (01) | LOC: PT 16:00 | PROVIDERS: PCP Family Medicine; Referring Provider Orthopaedic Surgery Orthopaedic Surgery of the Spine; Visit Provider Orthopaedic Surgery Orthopaedic Surgery of the Spine | DX: I73.9 Peripheral vascular disease, unspecified (principal); M54.50 Low back pain, unspecified | CPT/HCPCS: 97110; 97162 ==

== ENCOUNTER 2023-11-16 13:52 | Emergency (ER) | payer MEDICARE, MEDICAID, SELFPAY ==
[2023-11-16 13:56] VITALS: BP 111/64; PULSE 67; RESP 16; TEMP 36.6; O2SAT 98
--- NOTE | 2023-11-16 14:43 | EX.ED.UPPERE ---
HPI History of Present Illness Chief Complaint: Laceration Detail of Chief Complaint: Right wrist laceration Informant: patient Narrative Narrative: Patient presents to the emergency department complaint of laceration to the right wrist that occurred this afternoon. Patient states that he was picking up a piece of scrap metal in the yard when the jagged edge accidentally lacerated his wrist. He is right-hand dominant. Patient unsure of his last tetanus shot but states Rafa does not want a tetanus shot. Patient on Plavix. PFSH PFSH Medical History PAD (peripheral artery disease) Hyperlipidemia COVID-19 (~03/2021) Ventricular tachycardia seen on cardiac nurse practitioner History of TIA (transient ischemic attack) (10/10/17) Tobacco abuse Shortness of breath Bradycardia Hypertension TIA (transient ischemic attack) Aphasia Chest pain Home Medications ?Medication ?Instructions ?Recorded ?Last Taken ?Type Handicap Placcard #1 ea 09/21/22 Unknown Rx clopidogrel 75 mg tablet 75 mg PO DAILY BLOOD THINNER #90 02/21/23 Unknown Rx tabs lisinopril 5 mg tablet 5 mg PO DAILY #90 tabs 02/21/23 Unknown Rx rosuvastatin 10 mg tablet 10 mg PO DAILY #90 tabs 02/21/23 Unknown Rx nitroglycerin 0.4 mg sublingual 0.4 mg sublingual Q5-15M PRN chest 06/26/23 Unknown Rx tablet pain #25 tabs cilostazol 50 mg tablet 50 mg PO BID #60 tabs 08/23/23 Unknown Rx Allergy/AdvReac Type Severity Reaction Status Date / Time aspirin Allergy Severe Hives Verified 11/16/23 13:53 Penicillins (PCN) Allergy Hives Verified 11/16/23 13:53 meperidine HCl (From Demerol) AdvReac Severe Behavior Verified 11/16/23 13:53 change Surgical History History of left heart catheterization (06/26/18) Social History Smoking Status: Current every day smoker tobacco type: cigarettes alcohol intake: never substance use type: does not use caffeine: Yes Type: coffee Number of servings: 3 ROS ROS ED Review of Systems ROS Unobtainable: other Constitutional Constitutional ED: Reports lethargy; Denies chills, fever(s), sweats or weight loss Eyes Eyes: Denies blurry vision, change in vision or diplopia ENT ENT ED: Denies rhinorrhea or sore throat Cardiovascular Cardiovascular: Denies chest pain, orthopnea or racing heartbeat Respiratory/Chest Respiratory/Chest: Denies cough, dyspnea, dyspnea on exertion, orthopnea or sputum Gastrointestinal Gastrointestinal: Denies abdominal pain, diarrhea, nausea or vomiting Genitourinary Genitourinary ED: Denies dysuria, hematuria or urinary frequency Musculoskeletal Musculoskeletal: Denies arthralgias, back pain, myalgias or neck pain Integumentary Reports other Details: Right wrist laceration ; Denies abscess, Abrasions or rash Neurologic Neurologic: Denies headache(s) or weakness Psychiatric Psychiatric: Denies anxiety, depression or suicidal thoughts Endocrine Endocrinology: Denies polydipsia, polyphagia or polyuria Hematologic/Lymphatic Hematologic/Lymphatic: Denies easy bleeding, easy bruising or lymphadenopathy Allergic/Immunologic Allergic/Immunologic ED: Denies mouth swelling, tongue swelling or urticaria EXAM Physical Exam Const Vital Signs: 11/16/23 13:56 Temperature 97.8 F Temperature Source Temporal Pulse Rate 67 Respiratory Rate 16 Blood Pressure 111/64 Blood Pressure Mean 79 Pulse Ox 98 Oxygen Delivery Method Room Air Positive well nourished and well developed General Appearance ED: well developed and NAD HEENT Reports TM's clear and moist mucous membranes normocephalic and atraumatic; Negative for trauma or tenderness Tympanic Membrane ED: Yes TM's clear Eyes PERRL and EOMs intact bilaterally General Eye ED: Negative for pale conjunctiva or scleral icterus Neck no lymphadenopathy, supple and no JVD General: Negative for tenderness Chest Wall inspection of chest normal and palpation of chest normal Chest: Negative for tenderness Resp normal respiratory effort and clear to auscultation bilaterally Effort and Inspection: Negative for respiratory distress or pain with movement Auscultation: Negative for rhonchi, wheezes or diminished lung sounds Cardio regular rate, regular rhythm, S1 normal heart sound, S2 normal heart sound and no murmurs Peripheral Pulses: pulses 2+ throughout GI normal to inspection, nondistended, normoactive bowel sounds, soft to palpation, non-tender, non-distended and no masses Back/Spine no CVA tenderness and no thoracic nor lumbar tenderness Extremity Extremity Narrative: Right wrist-patient has a 2.5 cm laceration of the volar aspect of the right wrist and also superficial abrasions extending on a similar line as the laceration. Laceration does appear superficial but does have some exposed fat. He has normal range of motion flexion extension of all digits. No significant hematomas. No significant bleeding. General Extremety ED: Negative for edema General Extremity: Negative for edema Neuro oriented x3, CN's II-XII intact bilaterally, no sensory deficits noted and gait normal Sensorium / Orientation: awake, alert, oriented to person, oriented to place and oriented to time Motor Exam: strength 5/5 throughout and strength abnormal Psych mental status grossly normal Skin no rashes or lesions noted and no wounds MDM MDM MDM Narrative Medical decision making narrative: Patient with superficial laceration to the right wrist. Neurovascularly intact. No concern for tendon injury or arterial injury of the ulnar artery. I recommended to the patient that we give him tetanus shot however he is refusing. He understands tetanus can be lethal. Patient understands and refusing tetanus. Please see procedure note for suture repair. Patient advised to follow-up with primary care physician in 10 days for suture removal. Patient to return if increasing pain, redness, swelling, purulent drainage, or condition worsen anyway. Procedures Lacerations Right wrist laceration: Length: 0.98 in Depth: Sub Q Shape: Linear Prep: Sterile Conditions and Shure-Clens Laceration repair: Irrigated, Lidocaine, Local and Skin sutures Irrigated (ml): 50 Number of Sutures/Nedra: 3 Suture Information: Ethilon, Simple and 5-0 Discharge Plan Triage Chief Complaint: Laceration ED Provider: Patrizia Lemus Dx/Rx/DC Orders Clinical Impression: Laceration of right wrist Instructions: ED Laceration Extremity Prescriptions: No Action (DME) Handicap Placcard See Rx Instructions .Route .MEDSUPPLY Qty: 1 0RF Rx Instructions: Exp: 09/2027 Dx: Debility nitroglycerin 0.4 mg tablet, sublingual 0.4 mg SUBLINGUAL Q5-15M PRN (Reason: chest pain) Qty: 25 3RF Rx Instructions: until response; do not exceed 3 doses per episode cilostazol 50 mg tablet 50 mg PO BID Qty: 60 2RF clopidogrel 75 mg tablet 75 mg PO DAILY Qty: 90 3RF lisinopril 5 mg tablet 5 mg PO DAILY Qty: 90 3RF rosuvastatin 10 mg tablet 10 mg PO DAILY Qty: 90 3RF Primary Care Provider: Maurilio Pabon Referrals: Maurilio Pabon MD [Primary Care Provider] - 10 Day for suture removal Print Language: Icelandic Disposition Disposition: Home, Self Care
[2023-11-16] MEDS: Lidocaine 1% (20 ml mdv) 20 ML Vial 4 ML INFILT (15:37)
== END 2023-11-16 15:40 | disposition home or self-care (01) ==
PROVIDERS: Emergency Provider Emergency Medicine; PCP Family Medicine; Visit Provider Emergency Medicine
DX: S61.511A Laceration without foreign body of right wrist, initial encounter (principal); W26.8XXA Contact with other sharp object(s), not elsewhere classified, initial encounter; Y93.89 Activity, other specified; Y99.8 Other external cause status; Y92.007 Garden or yard of unspecified non-institutional (private) residence as the place of occurrence of the external cause; I10 Essential (primary) hypertension; E78.5 Hyperlipidemia, unspecified; F17.210 Nicotine dependence, cigarettes, uncomplicated; Z79.02 Long term (current) use of antithrombotics/antiplatelets; Z79.899 Other long term (current) drug therapy; Z86.16 Personal history of COVID-19; Z86.73 Personal history of transient ischemic attack (TIA), and cerebral infarction without residual deficits
CPT/HCPCS: 12001; 99283

== ENCOUNTER 2023-12-29 12:09 | Emergency (ER) | payer MEDICARE, MEDICAID, SELFPAY ==
[2023-12-29 12:09] VITALS: BP 132/84; PULSE 62; RESP 18; TEMP 37; O2SAT 100; BMI 28.0
--- NOTE | 2023-12-29 12:27 | EKG12_ITS ---
Test Reason : Blood Pressure : / mmHG Vent. Rate : 053 BPM Atrial Rate : 053 BPM P-R Int : 168 ms QRS Dur : 092 ms QT Int : 436 ms P-R-T Axes : 062 010 056 degrees QTc Int : 409 ms Sinus bradycardia Otherwise normal ECG Confirmed by Ayaz Montano ([id number]), video effects editor CELIO KENT ([id number]) on 12/31/2023 9:34:00 AM Referred By: Confirmed By:Ayaz Montano
[2023-12-29 12:44] LABS: Bacteria 0 SEEN /hpf (None Seen); Mucous, Urine 0 SEEN /hpf (<or=2+); Red Blood Cells-Urine 0 SEEN /hpf (0-5); Squamous Epithelial Cells - UA 0 SEEN /hpf (0-5); White Blood Cells 0 SEEN /hpf (0-5)
[2023-12-29 12:51] LABS: Absolute Lymphocyte Count 2.14 X10^3/uL (0.83-4.51); Absolute Neutrophil Count 2.8 X10^3/uL (2.0-7.7); Basophil# 0.03 X10^3/uL; Basophil% 0.6 % (0-1); Eosinophil# 0.17 X10^3/uL; Eosinophils% 3.1 % (0-5); Hematocrit 42.7 % (40-54); Hemoglobin 14.4 g/dL (13.0-16.5); Lymphocyte # 2.14 X10^3/ul (0.83-4.51); Lymphocyte % 39.4 % (19-41); Mean Corp Hgb Conc 33.7 g/dL (32-36); Mean Corpuscular Hgb 33.4 pg (27.0-32.0); Mean Corpuscular Volume 99.1 fL (80-94); Monocyte# 0.33 X10^3/uL; Monocyte% 6.1 % (0-10); NRBC Flagged by Analyzer 0 % (0-5); Neutrophil # 2.75 X10^3/uL (2.7-7.7); Neutrophil % 50.6 % (47-70); Platelet Count 188 K/mm3 (150-450); RBC Distribution Width CV 12.2 % (11.6-14.6); RBC Distribution Width SD 44.9 fl (35.1-43.9); Red Blood Count 4.31 M/mm3 (4.6-6.2); White Blood Count 5.4 K/mm3 (4.4-11.0)
[2023-12-29 12:51] LABS: Color, Urine Yellow (Yellow); Glucose, Dipstick Normal (Normal); Ketone-Dipstick Negative (Negative); Leukocyte Esterase-Dipstick Negative /ul (Negative); Nitrite-Dipstick Negative (Negative); Occult Blood-Urine Negative /ul (Negative); Protein-Dipstick Negative (Negative); Urine Bilirubin Dipstick Negative (Negative); Urine Clarity Clear (Clear); Urine Urobilinogen Normal (Normal)
[2023-12-29 13:09] LABS: AST(SGOT) 12 U/L (15-37); Alanine Aminotransfer ALT/SGPT 12 U/L (16-61); Albumin, Serum 3.6 g/dL (3.2-5.0); Alkaline Phosphatase 107 U/L (45-117); Anion Gap 2 (5-15); BUN 11 mg/dL (7-18); Calcium,Total 9.2 mg/dL (8.5-10.1); Chloride 105 mmol/L (98-107); Creatinine, Serum 0.78 mg/dL (0.70-1.30); EST Glomerular Filtration Rate 107 mL/min (>60); Est Glom Filt Rate - Afr Amer 129 mL/min (>60); Estimated Creatinine Clearance 123.44 ml/min; Globulin 3.5 g/dL (2.2-4.2); Glucose 95 mg/dL (74-106); Lipase 33 U/L (13-75); Potassium 3.8 mmol/L (3.5-5.1); Protein, Total 7.1 g/dL (6.4-8.2); Sodium Level 137 mmol/L (136-145)
--- NOTE | 2023-12-29 13:29 | EDS_ITS ---
HPI History of Present Illness Chief Complaint: Flank Pain Narrative Narrative: Patient is a 63-year-old male with past medical history of hyperlipidemia, peripheral arterial disease, tobacco use, hypertension who presented to the emergency department chief complaint of right-sided back pain. Patient states that his pain started yesterday while he was watching TV. Patient denies bending over or pick anything up heavy denies any other injuries. Patient states that he did have a kidney stone a very long time ago and has not had any since then. Patient states that his pain radiates from the right side of his back into the right lower portion of his abdomen. Denies any recent sick contacts. [facility] Medical History PAD (peripheral artery disease) Hyperlipidemia COVID-19 (~03/2021) Ventricular tachycardia seen on phototypesetting equipment monitor History of TIA (transient ischemic attack) (10/10/17) Tobacco abuse Shortness of breath Bradycardia Hypertension TIA (transient ischemic attack) Aphasia Chest pain Home Medications ?Medication ?Instructions ?Recorded ?Last Taken ?Type Handicap Placcard #1 ea 09/21/22 Unknown Rx clopidogrel 75 mg tablet 75 mg PO DAILY BLOOD THINNER #90 02/21/23 Unknown Rx tabs lisinopril 5 mg tablet 5 mg PO DAILY #90 tabs 02/21/23 Unknown Rx rosuvastatin 10 mg tablet 10 mg PO DAILY #90 tabs 02/21/23 Unknown Rx nitroglycerin 0.4 mg sublingual 0.4 mg sublingual Q5-15M PRN chest 06/26/23 Unknown Rx tablet pain #25 tabs cilostazol 50 mg tablet 50 mg PO BID #60 tabs 08/23/23 Unknown Rx Allergy/AdvReac Type Severity Reaction Status Date / Time aspirin Allergy Severe Hives Verified 12/29/23 12:09 Penicillins (PCN) Allergy Hives Verified 12/29/23 12:09 meperidine HCl (From Demerol) AdvReac Severe Behavior Verified 12/29/23 12:09 change Surgical History History of left heart catheterization (06/26/18) Social History Smoking Status: Current every day smoker tobacco type: cigarettes alcohol intake: never substance use type: does not use caffeine: Yes Type: coffee Number of servings: 3 ROS ROS ED ROS Narrative Constitutional: Denies any fevers, chills, headaches, lightness, dizziness Eyes: Denies change in vision double vision blurry vision Cardiovascular: Denies chest pain or palpitations Respiratory: Denies coughing wheezing shortness of breath Abdomen: Complains of right-sided abdominal pain as noted above denies nausea vomiting diarrhea denies dark tarry stools states that his stools been brown : Denies pain phonation, hematuria, polyuria states that has been urinating normally for himself Neurological: Denies any numbness, weakness, tingling Musculoskeletal: Pain complains of back pain as noted above Skin: Of denies rashes or lesions EXAM Physical Exam Narrative Exam Narrative: General: Patient lying in bed rest comfortably did not appear to be in acute distress Head: Atraumatic, normocephalic Eyes: PERRL bilateral, EOMI bilateral, no conjunctival injection noted Neck: Soft, supple, trachea Cardiovascular:Regular rate and rhythm no murmurs gallops rubs noted Respiratory: Clear to auscultation bilaterally Abdomen: Soft, nondistended, patient did have some tenderness palpation the right lower quadrant, no rebound or guarding on exam bowel sounds present x 4 Musculoskeletal: Patient has some right sided CVA tenderness noted exam, no tenderness palpation midline of the thoracolumbar spine Extremities: +5/5 strength noted in the bilateral upper and lower extremities, radial pulses +2/4 in the bilateral extremities, no pedal edema no exam Neurological: Patient following commands knew that he was at [facility] there is 2023 Skin: Warm, dry, intact Const Vital Signs: 12/29/23 12:09 12/29/23 14:21 12/29/23 16:00 Temperature 98.6 F 97.2 F L Temperature Source Oral Oral Pulse Rate 62 81 59 L Respiratory Rate 18 16 18 Blood Pressure 132/84 H 132/76 H 120/83 H Blood Pressure Mean 100 94 95 Pulse Ox 100 96 96 Oxygen Delivery Method Room Air Room Air Room Air MDM MDM MDM Narrative Medical decision making narrative: Patient is a 63-year-old male who presented to the emergency department the chief complaint of right sided back pain radiating to the right lower portion of his abdomen. Patient will have a workup performed here on the differential diagnose includes but not limited to appendicitis, pancreatitis, AAA, viral gastroenteritis. Once workup is obtained reviewed he will be reevaluated. Patient CBC reviewed and showed no evidence of leukocytosis white blood count normal 5.4, hemoglobin stable 14.4, platelet count was noted be normal at 188. Patient sodium normal 137, testing one 3.8, creatinine normal at 0.78. Patient's AST and ALT were 12 and 12 respectively. Patient's lipase normal at 33, urinalysis did not reveal any evidence of infection. Patient CT abdomen pelvis with IV contrast reviewed and showed no acute abdominal or pelvic abnormality no interval change. Patient's EKG reviewed and independently interpreted by myself which showed sinus bradycardia with rate of 53 bpm. Did discuss results with the patient and he would like to go home at this point time. He is encouraged to follow-up with his primary care physician outpatient setting. He is encouraged return with worsening symptoms or any other concerns. He is agreeable this plan as well as family ember at bedside all question concerns answered he is discharged home in stable condition. Lab Data Labs: Laboratory Results - last 24 hr 12/29/23 12/29/23 12:14 12:39 WBC 5.4 RBC 4.31 L Hgb 14.4 Hct 42.7 MCV 99.1 H MCH 33.4 H MCHC 33.7 RDW Std Deviation 44.9 H RDW Coeff of Mary 12.2 Plt Count 188 MPV 11.0 Immature Gran % (Auto) 0.200 Neut % (Auto) 50.6 Lymph % (Auto) 39.4 Noble % (Auto) 6.1 Eos % (Auto) 3.1 Baso % (Auto) 0.6 Absolute Neuts (auto) 2.8 Absolute Lymphs (auto) 2.14 Nucleated RBC % 0 Sodium 137 Potassium 3.8 Chloride 105 Carbon Dioxide 30.0 Anion Gap 2 L BUN 11 Creatinine 0.78 Estim Creat Clear Calc 123.44 Est GFR (MDRD) Af Amer 129 Est GFR (MDRD) Non-Af 107 BUN/Creatinine Ratio 14.0 Glucose 95 Calcium 9.2 Total Bilirubin 0.40 AST 12 L ALT 12 L Alkaline Phosphatase 107 Total Protein 7.1 Albumin 3.6 Globulin 3.5 Albumin/Globulin Ratio 1.0 Lipase 33 Urine Color Yellow Urine Clarity Clear Urine pH 6.0 Ur Specific [place] 1.010 Urine Protein Negative Urine Glucose (UA) Normal Urine Ketones Negative Urine Occult Blood Negative Urine Nitrite Negative Urine Bilirubin Negative Urine Urobilinogen Normal Ur Leukocyte Esterase Negative Urine RBC 0 SEEN Urine WBC 0 SEEN Ur Squamous Epith Cells 0 SEEN Urine Bacteria 0 SEEN Urine Mucus 0 SEEN Radiography Diagnostic Testing: Clinical Impression(s) from Imaging Studies Abdomen/Pelvis CT 12/29/23 14:05 IMPRESSION: No acute abdominal or pelvic abnormality. No interval change. Electronically Signed: Wu Pemberton MD at 16:18 EDT Reading Location ID and State: [facility] / [place] Tel , Service support , Discharge Plan Triage Chief Complaint: Flank Pain ED Provider: Ronald Helms Dx/Rx/DC Orders Clinical Impression: Acute flank pain Prescriptions: No Action (DME) Handicap Placcard See Rx Instructions .Route .MEDSUPPLY Qty: 1 0RF Rx Instructions: Exp: 09/2027 Dx: Debility nitroglycerin 0.4 mg tablet, sublingual 0.4 mg SUBLINGUAL Q5-15M PRN (Reason: chest pain) Qty: 25 3RF Rx Instructions: until response; do not exceed 3 doses per episode cilostazol 50 mg tablet 50 mg PO BID Qty: 60 2RF clopidogrel 75 mg tablet 75 mg PO DAILY Qty: 90 3RF lisinopril 5 mg tablet 5 mg PO DAILY Qty: 90 3RF rosuvastatin 10 mg tablet 10 mg PO DAILY Qty: 90 3RF Primary Care Provider: Maurilio Pabon Referrals: Maurilio Pabon MD [Primary Care Provider] - Activity Restrictions/Additional Instructions: Follow-up your primary care physician outpatient setting. Return with worsening symptoms or other concerns. Rotate Tylenol and ibuprofen for pain control. Print Language: Kyrgyz Disposition Disposition: Home, Self Care
--- NOTE | 2023-12-29 14:05 | CT_ITS ---
EXAM: CT ABDOMEN AND PELVIS WITH INTRAVENOUS CONTRAST CLINICAL INDICATION: right flank pain TECHNIQUE: Helically acquired images were obtained of the abdomen and pelvis with intravenous contrast. This CT exam was performed using one or more of the following dose reduction techniques: automated exposure control, adjustment of the mA and/or kV according to patient size, and/or use of iterative reconstruction technique. CONTRAST: IV 100mL [id number] COMPARISON: CT Abdomen Pelvis dated 04/17/2017 FINDINGS: LOWER THORAX: Normal. Lung bases are clear. No cardiomegaly. No pericardial effusion. ABDOMEN: LIVER: Normal. Homogeneous. No focal mass. GALLBLADDER AND BILE DUCTS: Normal. No calcified gallstones. No gallbladder distention or wall edema. No intra- or extrahepatic biliary ductal dilation. PANCREAS: Normal. No focal cystic or solid mass. SPLEEN: Normal. Normal size without focal cystic or solid mass. ADRENALS: Normal. No nodules. KIDNEYS AND URETERS: Normal. Normal renal size and position. No hydronephrosis. STOMACH AND BOWEL: Normal. No bowel distention. No focal inflammatory change. PELVIS: APPENDIX: Appendix is visualized and normal in appearance. BLADDER: Normal. REPRODUCTIVE: Unremarkable as visualized. No mass. ABDOMEN and PELVIS: INTRAPERITONEAL SPACE: Normal. No ascites or other fluid collection. No free air. BONES/JOINTS: No suspicious lytic or blastic abnormality. SOFT TISSUES: Small fat-containing umbilical hernia is present. VASCULATURE: Normal. Abdominal aorta is non-dilated. LYMPH NODES: Normal. No enlarged lymph nodes. OTHER FINDINGS: Anterior abdominal wall surgical mesh noted involving the left lower quadrant, inguinal canal. CT/Abdomen/Pelvis W IV Cont ONLY IMPRESSION: No acute abdominal or pelvic abnormality. No interval change. Electronically Signed: Wu Pemberton MD at 16:18 EDT ,
[2023-12-29 14:21] VITALS: BP 132/76; PULSE 81; RESP 16; TEMP 36.2; O2SAT 96
[2023-12-29] MEDS: LORazepam 1 MG Tablet PO (15:18)
[2023-12-29 16:00] VITALS: BP 120/83; PULSE 59; RESP 18; O2SAT 96
== END 2023-12-29 16:50 | disposition home or self-care (01) ==
PROVIDERS: Emergency Provider Emergency Medicine; PCP Family Medicine; Visit Provider Emergency Medicine
DX: R10.9 Unspecified abdominal pain (principal); F17.210 Nicotine dependence, cigarettes, uncomplicated; Z86.73 Personal history of transient ischemic attack (TIA), and cerebral infarction without residual deficits; Z86.16 Personal history of COVID-19
CPT/HCPCS: 74177; 80053; 81001; 83690; 85025; 93005; 99284; Q9967; A4216

== ENCOUNTER 2024-02-03 13:04 | Observation (INO) | payer MEDICARE, MEDICAID, SELFPAY ==
[2024-02-03] VITALS (8 sets, daily range): BP systolic 143–172; BP diastolic 67–89; PULSE 52–77; RESP 16–19; TEMP 36.3–36.8; O2SAT 93–98; BMI 27.5; BMI 27.7
--- NOTE | 2024-02-03 13:32 | CT_ITS ---
EXAM: CT HEAD AND CERVICAL SPINE WITHOUT INTRAVENOUS CONTRAST CLINICAL INDICATION: Trauma pain. TECHNIQUE: Helically acquired images were obtained of the head/brain and cervical spine without intravenous contrast. 2D reformatted images were reviewed. This CT exam was performed using one or more of the following dose reduction techniques: automated exposure control, adjustment of the mA and/or kV according to patient size, and/or use of iterative reconstruction technique. COMPARISON: MRI brain, 10/10/2017 and CTA head and neck, 10/10/2017. FINDINGS: BRAIN AND EXTRA-AXIAL SPACES: No significant abnormality. No intra- or extra-axial hemorrhage. No evidence of acute infarct. No intracranial mass or mass effect. There is preservation of the li/white matter interface. Posterior fossa structures are unremarkable. Ventricles are appropriate for age. No hydrocephalus. Basal cisterns are patent. SKULL: No significant abnormality. No discrete lytic or blastic abnormalities. SINUSES: Mucus retention cyst in the left maxillary sinus. MASTOID AIR CELLS: No significant abnormality. Clear. VERTEBRAE: Mild multilevel facet, uncovertebral joint, and endplate osteophytosis. No fracture. No traumatic subluxation. No discrete lytic or blastic abnormality. Normal alignment. Normal craniocervical junction and cervicothoracic junction. DISCS/SPINAL CANAL/NEURAL FORAMINA: Mild to moderate multilevel spinal canal and neural foraminal stenosis. Multiple small disc bulges and/or herniations. Multilevel intervertebral disc height loss. SOFT TISSUES: No significant abnormality. No prevertebral soft tissue swelling. LYMPH NODES: No significant abnormality. No cervical adenopathy. LUNG APICES: Minimal scarring in the lung apices. CT/Brain/Head without Contrast IMPRESSION: 1. No CT evidence of acute intracranial pathology. 2. Degenerative changes in the cervical spine without evidence of acute osseous abnormality. Consider follow-up MRI if clinically indicated. Electronically Signed: Bao Nielsen DO at 14:09 EST ,
--- NOTE | 2024-02-03 13:32 | RAD_ITS ---
EXAM: XR CHEST, 1 VIEW CLINICAL INDICATION: Trauma, pain. TECHNIQUE: Frontal view of the chest. COMPARISON: 04/11/2021 FINDINGS: LUNGS AND PLEURAL SPACES: No significant abnormality. No consolidation or edema. No pneumothorax. No effusion. HEART: No significant abnormality. Cardiac silhouette not enlarged. MEDIASTINUM: Central airways and mediastinal contour are unremarkable. BONES/JOINTS: No significant abnormality. No acute fracture. SOFT TISSUES: No significant abnormality. RAD/Chest 1 View (Portable) IMPRESSION: No radiographic evidence of acute cardiopulmonary disease. Electronically Signed: Bao Nielsen DO at 14:09 EST ,
--- NOTE | 2024-02-03 13:32 | CT_ITS ---
EXAM: CT HEAD AND CERVICAL SPINE WITHOUT INTRAVENOUS CONTRAST CLINICAL INDICATION: Trauma pain. TECHNIQUE: Helically acquired images were obtained of the head/brain and cervical spine without intravenous contrast. 2D reformatted images were reviewed. This CT exam was performed using one or more of the following dose reduction techniques: automated exposure control, adjustment of the mA and/or kV according to patient size, and/or use of iterative reconstruction technique. COMPARISON: MRI brain, 10/10/2017 and CTA head and neck, 10/10/2017. FINDINGS: BRAIN AND EXTRA-AXIAL SPACES: No significant abnormality. No intra- or extra-axial hemorrhage. No evidence of acute infarct. No intracranial mass or mass effect. There is preservation of the li/white matter interface. Posterior fossa structures are unremarkable. Ventricles are appropriate for age. No hydrocephalus. Basal cisterns are patent. SKULL: No significant abnormality. No discrete lytic or blastic abnormalities. SINUSES: Mucus retention cyst in the left maxillary sinus. MASTOID AIR CELLS: No significant abnormality. Clear. VERTEBRAE: Mild multilevel facet, uncovertebral joint, and endplate osteophytosis. No fracture. No traumatic subluxation. No discrete lytic or blastic abnormality. Normal alignment. Normal craniocervical junction and cervicothoracic junction. DISCS/SPINAL CANAL/NEURAL FORAMINA: Mild to moderate multilevel spinal canal and neural foraminal stenosis. Multiple small disc bulges and/or herniations. Multilevel intervertebral disc height loss. SOFT TISSUES: No significant abnormality. No prevertebral soft tissue swelling. LYMPH NODES: No significant abnormality. No cervical adenopathy. LUNG APICES: Minimal scarring in the lung apices. CT/Spine Cervical without Contras IMPRESSION: 1. No CT evidence of acute intracranial pathology. 2. Degenerative changes in the cervical spine without evidence of acute osseous abnormality. Consider follow-up MRI if clinically indicated. Electronically Signed: Bao Nielsen DO at 14:09 EST ,
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
[2024-02-03 13:55] LABS: Absolute Lymphocyte Count 1.89 X10^3/uL (0.83-4.51); Absolute Neutrophil Count 3.1 X10^3/uL (2.0-7.7); Basophil# 0.03 X10^3/uL; Basophil% 0.5 % (0-1); Eosinophil# 0.16 X10^3/uL; Eosinophils% 2.9 % (0-5); Hematocrit 46.2 % (40-54); Hemoglobin 15.5 g/dL (13.0-16.5); Lymphocyte # 1.89 X10^3/ul (0.83-4.51); Lymphocyte % 34.2 % (19-41); Mean Corp Hgb Conc 33.5 g/dL (32-36); Mean Corpuscular Volume 98.5 fL (80-94); Mean Platelet Vol. 10.7 fl (6.2-12.0); Monocyte# 0.35 X10^3/uL; Monocyte% 6.3 % (0-10); NRBC Flagged by Analyzer 0 % (0-5); Neutrophil # 3.08 X10^3/uL (2.7-7.7); Neutrophil % 55.9 % (47-70); Platelet Count 211 K/mm3 (150-450); RBC Distribution Width CV 12.4 % (11.6-14.6); RBC Distribution Width SD 45.1 fl (35.1-43.9); Red Blood Count 4.69 M/mm3 (4.6-6.2); White Blood Count 5.5 K/mm3 (4.4-11.0)
[2024-02-03 13:58] LABS: Bacteria 0 SEEN /hpf (None Seen); Mucous, Urine 0 SEEN /hpf (<or=2+); Red Blood Cells-Urine 0 SEEN /hpf (0-5); Squamous Epithelial Cells - UA 0 SEEN /hpf (0-5); White Blood Cells 0 SEEN /hpf (0-5)
[2024-02-03 14:08] LABS: Color, Urine Yellow (Yellow); Glucose, Dipstick Normal (Normal); Ketone-Dipstick Negative (Negative); Leukocyte Esterase-Dipstick Negative /ul (Negative); Nitrite-Dipstick Negative (Negative); Occult Blood-Urine Negative /ul (Negative); Protein-Dipstick Negative (Negative); Urine Bilirubin Dipstick Negative (Negative); Urine Clarity Clear (Clear); Urine Urobilinogen Normal (Normal); Urine pH 6.5 (5.0 - 8.0)
[2024-02-03 14:19] LABS: Alcohol, Blood (Medical)-Serum < 3.0 mg/dL
[2024-02-03 14:21] LABS: Anion Gap 2 (5-15); BUN 10 mg/dL (7-18); BUN/Creat Ratio 12.3 RATIO (10-20); Calcium,Total 8.8 mg/dL (8.5-10.1); Chloride 108 mmol/L (98-107); Creatinine, Serum 0.81 mg/dL (0.70-1.30); EST Glomerular Filtration Rate 102 mL/min (>60); Est Glom Filt Rate - Afr Amer 123 mL/min (>60); Estimated Creatinine Clearance 109.94 ml/min; Glucose 95 mg/dL (74-106); Potassium 4.1 mmol/L (3.5-5.1); Sodium Level 140 mmol/L (136-145)
[2024-02-03] MEDS: Morphine 4 MG/ML Syringe IV (14:24)
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
--- NOTE | 2024-02-03 15:48 | ECHOD_ITS ---
Reason For Study: SYNCOPE Procedure This was a 2D Doppler, Color Flow transthoracic echocardiogram. Exam performed portable in patient room. Left Ventricle Normal LV size. Left ventricular systolic function is normal. The left ventricular ejection fraction is 65 %. No regional wall motion abnormalities noted. Right Ventricle Normal RV size. Normal systolic function. Atria Normal left atrium. Normal right atrium. Mitral Valve Normal mitral valve. Tricuspid Valve Normal tricuspid valve. Aortic Valve Trisinus/trileaflet aortic valve. Pulmonic Valve Normal pulmonic valve. Great Vessels Normal aortic root. The pulmonary artery is normal size. Normal inferior vena cava. Pericardium/Pleural No pericardial effusion. MMode/2D Measurements & Calculations LVIDd: 4.6 cm IVSd: 1.00 cm Ao root diam: 2.6 cm LVIDs: 3.0 cm LVPWd: 1.1 cm RVDd: 3.1 cm FS: 35.7 % asc Aorta Diam: 3.4 cm LAV(MOD-bp): 31.8 ml LVAd ap4: 27.8 cm2 LAV(MOD-bp) Indexed: 14.2 ml/m2 LVLd ap4: 8.0 cm LAV(MOD-sp2): 31.2 ml EDV(MOD-sp4): 81.0 ml LAV(MOD-sp4): 32.6 ml EDV(sp4-el): 82.0 ml LVAs ap4: 15.1 cm2 LVLs ap4: 6.8 cm ESV(MOD-sp4): 30.5 ml ESV(sp4-el): 28.5 ml EF(MOD-sp4): 62.3 % EF(sp4-el): 65.2 % SV(MOD-sp4): 50.5 ml SV(sp4-el): 53.4 ml LA A4 area: 14.0 cm2 SI(MOD-sp4): 22.6 ml/m2 RA A4 area: 11.0 cm2 TAPSE: 2.2 cm Time Measurements MV dec time: 0.21 sec Doppler Measurements & Calculations MV E max erwin: 72.4 cm/sec Lat Peak E' Erwin: 11.4 cm/sec Med Peak E' Erwin: 8.2 cm/sec MV A max erwin: 85.5 cm/sec E/E' lat: 6.3 E/E' med: 8.8 MV E/A: 0.85 MV V2 max: 86.6 cm/sec Ao V2 max: 138.5 cm/sec MV max P.0 mmHg MV dec slope: 340.4 cm/sec2 Ao max P.7 mmHg MV V2 mean: 39.5 cm/sec Ao V2 mean: 92.2 cm/sec MV mean P.81 mmHg Ao mean P.9 mmHg MV V2 VTI: 33.8 cm Ao V2 VTI: 34.0 cm AV (velocity ratio): 0.85 LV V1 max: 116.3 cm/sec PA V2 max: 97.7 cm/sec LV V1 max P.4 mmHg PA V2 mean: 60.7 cm/sec LV V1 mean P.7 mmHg LV V1 mean: 76.8 cm/sec LV V1 VTI: 29.0 cm ECHO/Echo Complete Interpretation Summary Normal LV size. Left ventricular systolic function is normal. The left ventricular ejection fraction is 65 %. Structurally normal valves. Ordering Physician: Christiano De La Vega Referring Physician: ZOFIA CORREA Performed By: Kavita Barraza RCS
[2024-02-03] MEDS: oxyCODONE 5 MG Tablet PO ×2 (17:50→22:10)
[2024-02-03] MEDS: Lidocaine 5% Patch 1 PATCH TOPICAL (18:43)
[2024-02-03] MEDS: Atorvastatin Calcium 20 MG Tablet PO (20:06)
[2024-02-03] MEDS: Cilostazol 50 MG Tablet PO (20:06)
[2024-02-03] MEDS: Acetaminophen 325 MG Tablet 650 MG PO (22:10)
[2024-02-04] MEDS: MELATONIN 3 MG TABLET PO (00:21)
[2024-02-04 05:00] VITALS: BP 140/68; PULSE 58; RESP 18; TEMP 36.6; O2SAT 98
[2024-02-04] MEDS: Acetaminophen 325 MG Tablet 650 MG PO (05:09)
[2024-02-04] MEDS: oxyCODONE 5 MG Tablet PO (05:09)
[2024-02-04] MEDS: Clopidogrel Bisulfate 75 MG Tablet PO (08:09)
[2024-02-04] MEDS: Lisinopril 5 MG Tablet PO (08:09)
[2024-02-04 08:27] VITALS: O2SAT 96
[2024-02-04 09:00] VITALS: PULSE 54
[2024-02-04 10:27] VITALS: BP 129/74; PULSE 52; RESP 16; TEMP 36.8; O2SAT 99
--- NOTE | 2024-02-04 10:30 | PCM.DC ---
Discharge Instructions Diet Discharge Diet: Light diet - advance as tolerated and 2000 mg Sodium Diet Activity Discharge Activity: Return to Normal Activity Weight Bearing Status: Weight bearing as tolerated Dressing / Incision Call your doctor if you observe: Fever of 101 or Higher, Coldness, Increased Pain, Numbness or Tingling, Change in Color, Inability to urinate, Inability to have a bowel movement, Shortness of breath, Dizziness, Fainting spells, Swelling in the ankles, Chest pain, Prolonged hiccupping, Increased palpitations (irregular heartbeat) and Calf discomfort Follow Up Care When: IN 2 WEEKS Test Results: Test results from this visit will be discussed in further detail at your follow-up appointment, if applicable. Discharge Plan Admission Admit Date/Time: 02/03/24 15:18 Primary Reason for Your Visit: Syncope Attending Provider: Michael Willson Primary Care Provider: Maurilio Pabon Consulting Providers: Christiano De La Vega Instructions Patient Instructions: ED Concussion, ED Facial Contusion, ED Head Injury (Adult), ED Fainting, Uncertain Cause, ED Paraesthesias Discharge Orders/Prescriptions Prescriptions: Continued (DME) Handicap Placcard See Rx Instructions .Route .MEDSUPPLY Qty: 1 0RF Rx Instructions: Exp: 09/2027 Dx: Debility nitroglycerin 0.4 mg tablet, sublingual 0.4 mg SUBLINGUAL Q5-15M PRN (Reason: chest pain) Qty: 25 3RF Rx Instructions: until response; do not exceed 3 doses per episode clopidogrel 75 mg tablet 75 mg PO DAILY Qty: 90 3RF lisinopril 5 mg tablet 5 mg PO DAILY Qty: 90 3RF rosuvastatin 10 mg tablet 10 mg PO DAILY Qty: 90 3RF Changed cilostazol 50 mg tablet 50 mg PO DAILY 30 Days Qty: 0 0RF Patient Comments: PATIENT REPORTS TAKING THIS ONCE DAILY IN THE EVENING Referrals / Follow Up: Maurilio Pabon MD [Primary Care Provider] - 1-2 Days if not improving Yoana Molina PA [Med Staff - [facility]] - Within 2 Weeks Disposition Disposition (needs filled in before D/C Order can be placed): Home, Self Care
[2024-02-04 11:17] VITALS: BP 127/70; BP 128/72; BP 129/69; PULSE 56; PULSE 58; PULSE 63
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
--- NOTE | 2024-02-04 13:41 | PHA.DC.MR.R ---
Pharmacy [place] Med Reconciliation Pharmacy Service has performed discharge medication reconciliation for this patient. The patient's discharge medication list was reviewed for discrepancies and discrepancies were resolved. Medications at Discharge Home Medications Handicap Placcard #1 ea 09/21/22 clopidogrel 75 mg tablet 75 mg PO DAILY BLOOD THINNER #90 tabs 02/21/23 lisinopril 5 mg tablet 5 mg PO DAILY #90 tabs 02/21/23 rosuvastatin 10 mg tablet 10 mg PO DAILY #90 tabs 02/21/23 nitroglycerin 0.4 mg sublingual tablet 0.4 mg sublingual Q5-15M PRN chest pain #25 tabs 06/26/23 cilostazol 50 mg tablet 50 mg PO DAILY 30 days #0 tabs 02/04/24
--- NOTE | 2024-02-04 13:48 | CASEMGMT ---
Patient has order to discharge. RN CM in to discus needs at discharge. Patient denies needs or help at discharge. Patient had no further questions or concerns.
== END 2024-02-04 12:56 | disposition home or self-care (01) ==
LOC: ED 15:07 → PCU 15:28
PROVIDERS: Admitting Provider Hospitalist; Emergency Provider Emergency Medicine; PCP Family Medicine; Visit Provider Internal Medicine
DX: R55 Syncope and collapse (principal); I47.20 Ventricular tachycardia, unspecified; S06.0XAA Concussion with loss of consciousness status unknown, initial encounter; F17.210 Nicotine dependence, cigarettes, uncomplicated; V57.5XXA Driver of pick-up truck or van injured in collision with fixed or stationary object in traffic accident, initial encounter; Z79.02 Long term (current) use of antithrombotics/antiplatelets; I10 Essential (primary) hypertension; E78.5 Hyperlipidemia, unspecified; Z86.73 Personal history of transient ischemic attack (TIA), and cerebral infarction without residual deficits; I73.9 Peripheral vascular disease, unspecified; Z79.899 Other long term (current) drug therapy; Y92.9 Unspecified place or not applicable; S00.83XA Contusion of other part of head, initial encounter; M54.6 Pain in thoracic spine; M54.2 Cervicalgia
CPT/HCPCS: 70450; 71045; 72125; 80048; 81001; 82077; 85025; 93005; 93306; 96374; 97161; 97165; 97802; 99221; 99285; 99406; A4216; G0378

== ENCOUNTER 2024-04-30 12:00 | Outpatient (CLI) | payer MEDICARE, MEDICAID, SELFPAY ==
[2024-04-18 09:43] VITALS: BMI 28.6
[2024-04-21 09:46] LABS: Anion Gap 5 (5-15); BUN 10 mg/dL (7-18); BUN/Creat Ratio 11.4 RATIO (10-20); Calcium,Total 8.9 mg/dL (8.5-10.1); Chloride 109 mmol/L (98-107); Creatinine, Serum 0.88 mg/dL (0.70-1.30); EST Glomerular Filtration Rate 94 mL/min (>60); Est Glom Filt Rate - Afr Amer 113 mL/min (>60); Estimated Creatinine Clearance 107.49 ml/min; Glucose 104 mg/dL (74-106); Potassium 4.3 mmol/L (3.5-5.1); Sodium Level 142 mmol/L (136-145)
== END 2024-04-30 22:00 | disposition home or self-care (01) ==
PROVIDERS: Physician Assistant Medical; Referring Provider Internal Medicine Cardiovascular Disease; Visit Provider Internal Medicine Cardiovascular Disease
DX: R55 Syncope and collapse (principal)
CPT/HCPCS: 36415; 80048

== ENCOUNTER → 2025-01-28 | Outpatient (CLI) | payer MEDICARE, MEDICAID, SELFPAY ==
[2025-01-28 10:53] LABS: Hematocrit 42.6 % (40-54); Hemoglobin 14.5 g/dL (13.0-16.5); Immature Granulocytes Count 0.030 X10^3/uL (0.0-0.0); Mean Corp Hgb Conc 34.0 g/dL (32-36); Mean Corpuscular Volume 99.8 fL (80-94); Mean Platelet Vol. 10.8 fl (6.2-12.0); NRBC Flagged by Analyzer 0 % (0-5); Platelet Count 204 K/mm3 (150-450); RBC Distribution Width CV 12.7 % (11.6-14.6); RBC Distribution Width SD 46.9 fl (35.1-43.9); Red Blood Count 4.27 M/mm3 (4.6-6.2); White Blood Count 6.7 K/mm3 (4.4-11.0)
[2025-01-28 11:43] LABS: AST(SGOT) 21 U/L (<=37); Alanine Aminotransfer ALT/SGPT 7 U/L (<=46); Albumin, Serum 4.4 g/dL (3.4-4.8); Alkaline Phosphatase 116 U/L (40-129); Anion Gap 8 (5-15); BUN 15 mg/dL (4-19); BUN/Creat Ratio 19.6 RATIO (10-20); Calcium,Total 9.1 mg/dL (7.6-11.0); Carbon Dioxide 27.4 mmol/L (21.0-32.0); Chloride 105 mmol/L (98-108); Cholesterol 207 mg/dL (<=200); Free T3 3.2 pg/mL (2.18-3.98); Globulin 2.7 g/dL (2.2-4.2); Glucose 95 mg/dL (70-99); Low Density Lipoprotein Calc. 149 mg/dL; Potassium 4.5 mmol/L (3.3-5.1); Triglycerides 120 mg/dL; Very Low Density Lipoprotein 24 mg/dL (5-40); cholesterol:hdl ratio screen 5.70
== END | disposition home or self-care (01) ==
LOC: LAB 10:13
PROVIDERS: PCP Family Medicine; Referring Provider Physician Assistant Medical; Visit Provider Physician Assistant Medical
DX: R07.9 Chest pain, unspecified (principal); I47.29 Other ventricular tachycardia; I73.9 Peripheral vascular disease, unspecified; E78.5 Hyperlipidemia, unspecified; I10 Essential (primary) hypertension; R53.83 Other fatigue
CPT/HCPCS: 36415; 80053; 80061; 84439; 84443; 84481; 85025

== ENCOUNTER 2025-02-24 20:12 | Emergency (ER) | payer MEDICARE, MEDICAID, SELFPAY ==
[2025-02-24 20:13] VITALS: BP 103/68; PULSE 80; RESP 16; TEMP 36.8; O2SAT 97; BMI 26.9
[2025-02-24 20:17] VITALS: BP 150/69; PULSE 80; RESP 16; TEMP 36.8; O2SAT 97
--- NOTE | 2025-02-24 20:40 | EKG12_ITS ---
Test Reason : Blood Pressure : */* mmHG Vent. Rate : 79 BPM Atrial Rate : 79 BPM P-R Int : 158 ms QRS Dur : 92 ms QT Int : 382 ms P-R-T Axes : 56 7 62 degrees QTcB Int : 438 ms Normal sinus rhythm Septal infarct , age undetermined Abnormal ECG Confirmed by JOSIAH JARRETT, MATTHEW ([id number]), script editor CELIO KENT ([id number]) on 03/02/2025 6:17:32 AM Referred By: Confirmed By: MATTHEW RAHMAN MD
--- OUTSIDE RECORDS SUMMARY | 2025-02-24 20:40 | XMS RPT_ITS | CCD ---
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 Comment on above: Order Comment: Speci men Type: BLOOD SPECIMENOrdering Facility: [facility] Address: [address] [place] [address] Performed By: #### 5 7021-8 ####[facility] LABIA [id number] [place] [address] [place] Platelet mean volume (Bld) [Entitic vol] 11.4 fL Normal 9.0-12.7 [facility] Comment on above: Order Comment: Speci men Type: BLOOD SPECIMENOrdering Facility: [facility] Address: [address] [place] [address] Performed By: #### 5 7021-8 ####[facility] LABIA [id number] [place] [address] [place] Platelets (Bld) [#/Vol] 190 10*3/uL Normal 150-400 [facility] Comment on above: Order Comment: Speci men Type: BLOOD SPECIMENOrdering Facility: [facility] Address: [address] [place] [address] Performed By: #### 5 7021-8 ####[facility] LABIA [id number] [place] [address] [place] RBC (Bld) [#/Vol] 4.61 10*6/uL Normal 4.20-6.00 [facility] Comment on above: Order Comment: Speci men Type: BLOOD SPECIMENOrdering Facility: [facility] Address: [address] [place] [address] Performed By: #### 5 7021-8 ####[facility] LABIA [id number] [place] [address] [place] WBC (Bld) [#/Vol] 5.27 10*3/uL Normal 3.70-11.00 [facility] Comment on above: Order Comment: Speci men Type: BLOOD SPECIMENOrdering Facility: [facility] Address: [address] [place] [address] Performed By: #### 5 7021-8 ####[facility] LABCLIA [id number] [place] [address] [place] Comprehensive metabolic 2000 panelon 06-23-2024 Albumin [Mass/Vol] 4.4 g/dL Normal 3.9-4.9 [facility] Comment on above: Order Comment: Speci men Type: BLOOD SPECIMENOrdering Facility: [facility] Address: [address] [place] [address] Performed By: #### L IPNF, 38061-9 ####[facility] LABCLIA [id number] [place] [address] [place] ALP [Catalytic activity/Vol] 130 U/L High 38-113 [facility] Comment on above: Order Comment: Speci men Type: BLOOD SPECIMENOrdering Facility: [facility] Address: [address] [place] [address] Performed By: #### L IPNF, 41781-8 ####[facility] LABCLIA [id number] [place] [address] [place] ALT [Catalytic activity/Vol] 8 U/L Low 10-54 [facility] Comment on above: Order Comment: Speci men Type: BLOOD SPECIMENOrdering Facility: [facility] Address: [address] [place] [address] Performed By: #### L IPNF, 73296-6 ####[facility] LABCLIA [id number] [place] [address] [place] Anion gap [Moles/Vol] 9 mmol/L Normal 8-15 [facility] Comment on above: Order Comment: Speci men Type: BLOOD SPECIMENOrdering Facility: [facility] Address: [address] [place] [address] Performed By: #### L IPNF, 51060-7 ####[facility] LABCLIA [id number] [address] [address] [place] AST [Catalytic activity/Vol] 19 U/L Normal 14-40 [facility] Comment on above: Order Comment: Speci men Type: BLOOD SPECIMENOrdering Facility: [facility] Address: [address] [place] [address] Performed By: #### L IPNF, 38679-7 ####[facility] LABCLIA [id number] [place] [id number] [place] Bilirubin [Mass/Vol] 0.3 mg/dL Normal 0.2-1.3 [facility] Comment on above: Order Comment: Speci men Type: BLOOD SPECIMENOrdering Facility: [facility] Address: [address] [place] [address] Performed By: #### L IPNF, 60479-9 ####[facility] LABCLIA [id number] [place] [address] [place] Calcium [Mass/Vol] 9.3 mg/dL Normal 8.5-10.2 [facility] Comment on above: Order Comment: Speci men Type: BLOOD SPECIMENOrdering Facility: [facility] Address: [address] [place] [address] Performed By: #### L IPNF, 98030-6 ####[facility] LABCLIA [id number] [place] [address] [place] Chloride [Moles/Vol] 104 mmol/L Normal 98-107 [facility] Comment on above: Order Comment: Speci men Type: BLOOD SPECIMENOrdering Facility: [facility] Address: [address] [place] [address] Performed By: #### L IPNF, 45914-3 ####[facility] LABCLIA [id number] [place] [id number] [place] CO2 [Moles/Vol] 28 mmol/L Normal 22-30 [facility] Comment on above: Order Comment: Speci men Type: BLOOD SPECIMENOrdering Facility: [facility] Address: [address] [place] [address] Performed By: #### L AMANDA, 24630-2 ####[facility] LABIA [id number] [address] [address] [place] Creatinine [Mass/Vol] 0.84 mg/dL Normal 0.73-1.22 [facility] Comment on above: Order Comment: Speci men Type: BLOOD SPECIMENOrdering Facility: [facility] Address: [address] [place] [address] Performed By: #### L AMANDA, 58095-8 ####[facility] LABIA [id number] [place] [address] [place] Creatinine and Glomerular filtration rate.predicted panel (S/P/Bld) 98 mL/min/1.73m??? Normal >=60 [facility] Comment on above: Order Comment: Speci men Type: BLOOD SPECIMENOrdering Facility: [facility] Address: [address] [place] [address] Result Comment: Ashleigh mated Glomerular Filtration Rate (eGFR) is calculated using the 2020 CKD-EPI creatinine equation. This equation utilizes serum creatinine, sex, and age as parameters. The creatinine assay has traceable calibration to isotope dilution-mass spectrometry. Refer to KDIGO guidelines for clinical interpretation. In patients with unstable renal function, e.g. those with acute kidney injury, the eGFR may not accurately reflect actual GFR. Performed By: #### L AMANDA, 30103-5 ####[facility] LABIA [id number] [address] [address] [place] Glucose [Mass/Vol] 99 mg/dL Normal 74-99 [facility] Comment on above: Order Comment: Essiei men Type: BLOOD SPECIMENOrdering Facility: [facility] Address: [address] [place] [address] Result Comment: The [place] Diabetes Association (ADA) provides guidance for cutoff values for fasting glucose and random glucose. The ADA defines fasting as no caloric intake for at least 8 hours. Fasting plasma glucose results between 100 to 125 mg/dL indicate increased risk for diabetes (prediabetes). Fasting plasma glucose results greater than or equal to 126 mg/dL meet the criteria for diagnosis of diabetes. In the absence of unequivocal hyperglycemia, results should be confirmed by repeat testing. In a patient with classic symptoms of hyperglycemia or hyperglycemic crisis, random plasma glucose results greater than or equal to 200 mg/dL meet the criteria for diagnosis of diabetes. Reference: Standards of Medical Care in Diabetes 2016, [place] Diabetes Association. Diabetes Care. 2016.39(Suppl 1). Performed By: #### L IPNF, ####[facility] LABCLIA [id number] [place] [address] [place] Potassium [Moles/Vol] 4.3 mmol/L Normal 3.7-5.1 [facility] Comment on above: Order Comment: Speci men Type: BLOOD SPECIMENOrdering Facility: [facility] Address: [address] [place] [address] Performed By: #### L IPNF, ####[facility] LABCLIA [id number] [place] [address] [place] Protein [Mass/Vol] 7.1 g/dL Normal 6.3-8.0 [facility] Comment on above: Order Comment: Speci men Type: BLOOD SPECIMENOrdering Facility: [facility] Address: [address] [place] [address] Performed By: #### L IPNF, ####[facility] LABCLIA [id number] [place] [address] [place] Sodium [Moles/Vol] 141 mmol/L Normal 136-144 [facility] Comment on above: Order Comment: Speci men Type: BLOOD SPECIMENOrdering Facility: [facility] Address: [address] [place] [address] Performed By: #### L IPNF, ####[facility] LABCLIA [id number] [place] [id number] [place] Urea nitrogen [Mass/Vol] 11 mg/dL Normal 9-24 [facility] Comment on above: Order Comment: Rashid robison Type: BLOOD SPECIMENOrdering Facility: [facility] Address: [address] [place] [address] Performed By: #### L IP, 59792-2 ####[facility] LABCLIA [id number] [place] [address] [place] HbA1c (Bld)on 06-23-2024 Average glucose Estimated from glycated hemoglobin (Bld) [Mass/Vol] 103 mg/dL Normal [facility] Comment on above: Order Comment: Rashid robison Type: BLOOD SPECIMENOrdering Facility: [facility] Address: [address] [place] [address] Result Comment: eAG: (Estimated average glucose) is a calculated value from HgbA1c and is new accounts banking representative of the average blood glucose level in the last 2-3 month period. Performed By: #### 5 5454-3 ####[facility] LABCLIA [id number] [address] [place] HbA1c (Bld) [Mass fraction] 5.2 % Normal 4.3-5.6 [facility] Comment on above: Order Comment: Rashid robison Type: BLOOD SPECIMENOrdering Facility: [facility] Address: [address] [place] [address] Result Comment: Amer [place] Diabetes Association guidelines indicate that patients with HgbA1c in the range 5.7-6.4% are at increased risk for development of diabetes, and intervention by lifestyle modification may be beneficial. HgbA1c greater or equal to 6.5% is considered diagnostic of diabetes. Performed By: #### 5 5454-3 ####[facility] LABCLIA [id number] [place] [id number] [place] LIPID PANEL, NONFASTINGon Cholesterol [Mass/Vol] 127 mg/dL Normal <200 [facility] Comment on above: Order Comment: Speci men Type: BLOOD SPECIMENOrdering Facility: [facility] Address: [address] [place] [address] Result Comment: <200 mg/dL, Desirable 200-239 mg/dL, Borderline high >239 mg/dL, High Performed By: #### L IPNF, 05962-2 ####[facility] LABCLIA [id number] [place] [address] [place] HDL CHOLESTEROL, NF 31 mg/dL Low >39 [facility] Comment on above: Order Comment: Speci men Type: BLOOD SPECIMENOrdering Facility: [facility] Address: [address] [place] [address] Result Comment: 40-5 9 mg/dL, Acceptable >59 mg/dL, High: Negative risk factor for coronary heart disease <40 mg/dL, Low: Positive risk factor for coronary heart disease Performed By: #### L IPNF, ####[facility] LABCLIA [id number] [place] [address] [place] LDL CHOLESTEROL, NF 78 mg/dL Normal <100 [facility] Comment on above: Order Comment: Speci men Type: BLOOD SPECIMENOrdering Facility: [facility] Address: [address] [place] [address] Result Comment: <100 mg/dL, Optimal 100-129 mg/dL, Near optimal/above optimal 130-159 mg/dL, Borderline high 160-189 mg/dL, High >189 mg/dL, Very high Secondary prevention optimal LDL Cholesterol levels are recommended to be < 70 mg/dL Performed By: #### L IPNF, ####[facility] LABCLIA [id number] [place] [address] [place] LDL/HDL RATIO, NF 2.52 mg/dL Normal <2.54 [facility] Comment on above: Order Comment: Speci men Type: BLOOD SPECIMENOrdering Facility: [facility] Address: [address] [place] [address] Result Comment: Refaudra archibald: 1. National Cholesterol Education Program ATP III Guideline At-A-Glance Quick Desk Reference: National Heart, Lung, and Blood [place]. National Institutes of Health. 2001: NIH Publication No. 01-3305. 2. An International Atherosclerosis Society position paper: global recommendations for the management of dyslipidemia: executive summary, Atherosclerosis. 2014: 232(2):410-413. Performed By: #### L IPNF, 78380-9 ####[facility] LABCLIA [id number] [address] OF [facility] NON HDL CHOL, NF 96 mg/dL Normal <130 [facility] Comment on above: Order Comment: Rashid men Type: BLOOD SPECIMENOrdering Facility: [facility] Address: [address] [place] [address] Result Comment: <130 mg/dL, Optimal 130-159 mg/dL, Near optimal/above optimal 160-189 mg/dL, Borderline high 190-219 mg/dL, High >219 mg/dL, Very high Secondary prevention optimal non HDL Cholesterol levels are recommended to be <100 mg/dL Performed By: #### L IPNF, 92027-8 ####[facility] LABCLIA [id number] [address] OF [facility] T CHOL/HDL RATIO NF 4.10 mg/dL Normal <5.10 [facility] Comment on above: Order Comment: Rashid robison Type: BLOOD SPECIMENOrdering Facility: [facility] Address: [address] [place] [address] Performed By: #### L IPNF, 84004-4 ####[facility] LABIA [id number] [address] [place] TRIGLYCERIDES, NF 90 mg/dL Normal <150 [facility] Comment on above: Order Comment: Rashid robison Type: BLOOD SPECIMENOrdering Facility: [facility] Address: [address] [place] [address] Result Comment: <150 mg/dL, Normal 150-199 mg/dL, Borderline high 200-499 mg/dL, High >499 mg/dL, Very high Performed By: #### L IPNF, 79082-7 ####[facility] LABCLIA [id number] [place] [id number] [place] VLDL CHOLESTEROL, NF 18 mg/dL Normal <30 [facility] Comment on above: Order Comment: Speci men Type: BLOOD SPECIMENOrdering Facility: [facility] Address: [address] [place] [address] Performed By: #### L IPNF, 30436-5 ####[facility] LABIA [id number] [place] [id number] [place] PSA/PROSTATE SPECIFIC ANTIGE N SCREENINGon 06-23-2024 Prostate specific Ag [Mass/Vol] 3.30 ng/mL High <2.60 [facility] Comment on above: Order Comment: Speci men Type: BLOOD SPECIMENOrdering Facility: [facility] Address: [address] [place] [address] Result Comment: Marixa murray PSA test methodology used is the Electrochemiluminescence Immunoassay by [employer]. Total PSA values by differing methodologies cannot be interchanged. For an individual patient, the significance of a PSA level should be interpreted in a broad clinical context, including age, race, family history, digital rectal exam, prostate size, results of prior testing (prostate biopsy, free PSA, PCA3), and use of 5-alpha reductase inhibitors. Considering the high incidence of asymptomatic cancer in the general population that may not pose an ultimate risk to a patient, the decision to recommend urological evaluation or prostate biopsy should be individualized after consideration of all these factors. REFERENCE: Paxton Dacosta M.D., M.P.H., Jay Lopez M.D., Ph.D., Bhupendra Mccloud M.D., Dinora Case, M.P.H., Melodie Hoffman Sc.D. Effect of Verification Bias on Screening for Prostate Cancer by Measurement of Prostatic Specific Antigen. N Engl J Med 2003,349:335-42. Performed By: #### P SAS1 ####[facility] LABCLIA [id number] [facility]ITALGauri [place] [id number] [place] CNOVon 06-20-2024 CNOV Office Visit (FAMPWS ) MILTON PAPPAS ([id number]) 1960 M Date Time Provider Department 06/20/24 10:20 AM LUCAS GRAHAM During your visit today, we recorded the following information about you: Pulse Blood pressure Weight 61/minute 160/72 99 kg Lucas Graham APRN.GROUP BILLING COORDINATOR 06/20/2024 10:43 AM Signed Chief Complaint Patient presents with: Physical HPI Miltonfaustino Pappas is a 64 year old male who presents here today for Above Complaints.. Patient presents for annual physical. Patient reports he continues to have leg pain. Patient saw Dr. Melchor last year as well as vascular but he never followed up as directed. Past medical history, appointments, medications, allergies reviewed. Previous Medical History PAST MEDICAL HISTORY Diagnosis Date CAD (coronary artery disease) Mild, Nonobstructive- Dr. Yoon Depression EPISODIC Hypercholesterolemia Hypertension Myocardial infarction (HCC) 2007 Overweight (BMI 25.0-29.9) TIA 2007 Tobacco use disorder Previous Surgical History PAST SURGICAL HISTORY Procedure Laterality Date CARDIAC CATH 02/14/2007 Mild, non-obsructive CAD CARDIAC CATH 06/2018 normal coronary arteries HERNIA REPAIR HX Stomach, 5 x in groin KNEE LEFT OP SURGERY X 6 Family History FAMILY HISTORY Problem Relation Age of Onset Heart Failure Mother COPD Father Heart Failure Father Heart Failure Sister Lung Cancer Sister Heart Failure Sister Stroke Sister Diabetes Sister Diabetes Sister Heart Brother 63 yearsold No Known Problems Son No Known Problems Daughter Patient Allergies ALLERGIES Allergen Reactions Aspirin Rash Demerol [Meperidine* Other: See Comments Violence Lipitor [Atorvastat* Vomiting Penicillins Rash Pravastatin Vomiting Current Medications Current Outpatient Medications on File Prior to Visit Medication Sig cilostazol (PLETAL) 50 mg tablet Take 1 tablet by mouth every 12 hours. lisinopril (ZESTRIL) 5 mg tablet Take 5 mg by mouth once daily. rosuvastatin (CRESTOR) 10 mg tablet Take 1 tablet by mouth daily at bedtime. multivit-minerals/FA/lycope ne (ONE-A-DAY MEN'S ORAL) Take by mouth twice daily. metoprolol succinate ER (TOPROL XL) 50 mg 24 hr tablet Take 1 tablet by mouth once daily. (Patient taking differently: Take 25 mg by mouth once daily.) clopidogrel (PLAVIX) 75 mg tablet Take 1 tablet by mouth once daily. No current facility-administered medications on file prior to visit. Social History Social History Tobacco Use Smoking status: Every Day Current packs/day: 0.50 Average packs/day: 0.5 packs/day for 46.3 years (23.1 ttl pk-yrs) Types: Cigarettes Start date: 03/19/1978 Smokeless tobacco: Never Vaping Use Vaping status: Never Used Substance Use Topics Alcohol use: No Comment: Quit year ago Drug use: No Review of Symptoms REVIEW OF SYSTEMS SEE HPI EXAM: BP 160/72 Pulse 61 Wt 99 kg (218 lb 4.1 oz) BMI 29.19 kg/m? General Appearance: Well appearing, alert, in no acute distress, well-hydrated, well nourished. Skin: Skin color, texture, turgor normal, no suspicious rashes or lesions. Lungs: Lungs clear to auscultation. No wheezing, rhonchi, rales.. Heart: RRR without murmur, gallop, or rubs. No ectopy. Abdomen: Normal abdominal exam, Abdomen soft, non-tender. Bowel sounds normal. No masses, organomegaly. Musculoskeletal: No joint swelling, deformity, or tenderness. Peripheral Pulses: Normal. Neurologic: Gait normal. Reflexes normal and symmetric. Sensation grossly intact.. Health Maintenance List Depression Screening Never done Anxiety Screening Never done BP Controlled (<130/80) Never done DTaP,Tdap,Td Vaccine(1 - Tdap) Never done Pneumococcal Vaccine: 50+(1 of 2 - PCV) Never done Colorectal Cancer Screening Never done Lung Cancer Screening Never done Shingrix Vaccine(1 of 2) Never done LDL Cholesterol due on 12/02/2021 Influenza Vaccine(1) due on 11/18/2023 Covid-19 Vaccine( - 2024-25 season) Never done Annual PCP Team Chronic Disease Visit due on 06/05/2025 Diabetes Screening due on 08/15/2025 Lipid Screening due on 12/02/2025 Prostate Cancer Screening Discussion due on 12/02/2025 RSV Vaccine(1 - 1-dose 75+ series) due on 2036 Hepatitis C Screening Completed HIV Screening Completed Data reviewed Last 5 Encounter BP Readings: Date: BP: 06/20/2024 160/72 06/05/2024 160/84 03/05/2024 124/76 08/15/2022 110/68 06/01/2021 114/84 ASSESSMENT/PLAN: 1. Coronary artery disease involving barrow heart without angina pectoris, unspecified vessel or lesion type - ICD9: 414.01, ICD10: I25.10 (primary diagnosis) -Follows with [facility] -Continue current medications 2. Hyperlipidemia, unspecified hyperlipidemia type - ICD9: 272.4, ICD10: E78.5 - Control undetermined, due for labs - Continue current medications - Counseled on health (more content not included)... Normal [facility] CNOVon 06-05-2024 CNOV Office Visit (FAMPWS ) MILTON PAPPAS ([id number]) 1960 M Date Time Provider Department 06/05/24 10:20 AM LUCAS GRAHAM During your visit today, we recorded the following information about you: Pulse Blood pressure Weight 66/minute 160/84 99.7 kg Lucas Graham APRN.GROUP BILLING COORDINATOR 06/05/2024 10:36 AM Signed Chief Complaint Patient presents with: Shortness of Breath: Woke up in the middle of the night and couldn't breathe feels like before when had PE bilateral leg pain: Legs ache like tooth ache for about 4 days. Left knee was swollen so bad couldn't get pants over it. HPI Milton Pappas is a 63 year old male who presents here today for Above Complaints.. Patient present today for bilateral leg pain x4 days that extends up into his groin and down to his toes. Patient states he is unable to walk short distances without his legs hurting. Patient states he did fall a few days ago his knee gave out denies hitting his head. Patient states he landed on his arm when he feel. Patient states he felt like his knee twisted on him when he fell. He had his left knee replaced and ever since it has clicked. Patient denies clicking and popping in the right knee. Patient states that his left knee was swollen and painful and he was unable to pull his pants leg over his left knee. He has not noticed any redness. Patient has tried tylenol which has not helped. Patient states he also started having SOB and chest pain last night. Patient denies radiation or crushing sensation. Past medical history, appointments, medications, allergies reviewed. Previous Medical History PAST MEDICAL HISTORY Diagnosis Date CAD (coronary artery disease) Mild, Nonobstructive- Dr. Yoon Depression EPISODIC Hypercholesterolemia Hypertension Myocardial infarction (HCC) 2007 Overweight (BMI 25.0-29.9) TIA 2007 Tobacco use disorder Previous Surgical History PAST SURGICAL HISTORY Procedure Laterality Date CARDIAC CATH 02/14/2007 Mild, non-obsructive CAD CARDIAC CATH 06/2018 normal coronary arteries HERNIA REPAIR HX Stomach, 5 x in groin KNEE LEFT OP SURGERY X 6 Family History FAMILY HISTORY Problem Relation Age of Onset Heart Failure Mother COPD Father Heart Failure Father Heart Failure Sister Lung Cancer Sister Heart Failure Sister Stroke Sister Diabetes Sister Diabetes Sister Heart Brother 63 yearsold No Known Problems Son No Known Problems Daughter Patient Allergies ALLERGIES Allergen Reactions Aspirin Rash Demerol [Meperidine* Other: See Comments Violence Lipitor [Atorvastat* Vomiting Penicillins Rash Pravastatin Vomiting Current Medications Current Outpatient Medications on File Prior to Visit Medication Sig cilostazol (PLETAL) 50 mg tablet Take 1 tablet by mouth every 12 hours. lisinopril (ZESTRIL) 5 mg tablet Take 5 mg by mouth once daily. rosuvastatin (CRESTOR) 10 mg tablet Take 1 tablet by mouth daily at bedtime. clopidogrel (PLAVIX) 75 mg tablet Take 1 tablet by mouth once daily. multivit-minerals/FA/lycope ne (ONE-A-DAY MEN'S ORAL) Take by mouth twice daily. metoprolol succinate ER (TOPROL XL) 50 mg 24 hr tablet Take 1 tablet by mouth once daily. (Patient taking differently: Take 25 mg by mouth once daily.) No current facility-administered medications on file prior to visit. Social History Social History Tobacco Use Smoking status: Every Day Current packs/day: 0.50 Average packs/day: 0.5 packs/day for 46.2 years (23.1 ttl pk-yrs) Types: Cigarettes Start date: 03/19/1978 Smokeless tobacco: Never Vaping Use Vaping status: Never Used Substance Use Topics Alcohol use: No Comment: Quit year ago Drug use: No Review of Symptoms REVIEW OF SYSTEMS GENERAL: Fatigue RESPIRATORY: Negative for cough, hemoptysis, wheezing, COPD, dyspnea or shortness of breath CARDIOVASCULAR: Negative for chest pain, leg swelling, hypertension, CHF or palpitations MUSCULOSKELETAL: joint pain or swelling EXAM: BP 160/84 Pulse 66 Wt 99.7 kg (219 lb 12.8 oz) SpO2 98% BMI 29.40 kg/m? General Appearance: Well appearing, alert, in no acute distress, well-hydrated, well nourished.. Lungs: Lungs clear to auscultation. No wheezing, rhonchi, rales.. Musculoskeletal: No joint swelling, deformity, or tenderness. Health Maintenance List Depression Screening Never done Anxiety Screening Never done DTaP,Tdap,Td Vaccine(1 - Tdap) Never done Pneumococcal Vaccine: 50+(1 of 2 - PCV) Never done Colorectal Cancer Screening Never done Lung Cancer Screening Never done Shingrix Vaccine(1 of 2) Never done LDL Cholesterol due on 12/02/2021 Influenza Vaccine(1) due on 11/18/2023 Covid-19 Vaccine( - 2023- season) Never done BP Controlled (<130/80) due on 03/05/2025 Annual PCP Team Chronic Disease Visit due on 06/05/2025 Diabetes Screening due on (more content not included)... Normal [facility] No Panel Informationon 06-05 [facility] Radiology Study observation (narrative) [facility] XR CHEST 2V FRONTAL/LATon XR CHEST 2V FRONTAL/LAT * * *Final Report* * * DATE OF EXAM: Jun 05 2024 10:47AM WOX [id number] - XR CHEST 2V FRONTAL/LAT / PROCEDURE REASON: multiple diagnoses * * * * Physician Interpretation * * * * EXAMINATION: CHEST RADIOGRAPH (2 VIEW FRONTAL and LATERAL) CLINICAL HISTORY: SOB (shortness of breath) Chest pain, mid sternal MQ: XC2_6 EXAM DATE/TIME: 06/05/2024 10:47 AM COMPARISON: Chest x-ray on 12/02/2020 RESULT: Lines, tubes, and devices: None. Lungs and pleura: No consolidation. No lung mass. No pleural effusion. No pneumothorax. Cardiomediastinal silhouette: Normal cardiomediastinal silhouette. Bones and soft tissues: Unremarkable. IMPRESSION: No acute radiographic abnormality. Lay Out Machine Operator: [facility] Transcribe Date/Time: Jun 05 2024 10:52A Dictated by : MILA MORALES MD This examination was interpreted and the report reviewed and electronically signed by: MILA MORALES MD on Jun 05 2024 10:52AM EST [id number] Normal [facility] XR Chest PA and Lateralon IMPRESSION: No acute radiographic abnormality. Lay Out Machine Operator: [facility] Transcribe Date/Time: Jun 05 2024 10:52A Dictated by : MILA MORALES MD This examination was interpreted and the report reviewed and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 IMPRESSION: No acute radiographic abnormality is appreciated. Lay Out Machine Operator: PSCB Transcribe Date/Time: Dec 02 2020 10:09A Dictated by : EMELINA CAMACHO MD This examination was interpreted and the report reviewed and electronically signed by: EMELINA CAMACHO MD on Dec 02 2020 10:10AM [facility] DIVISION OF RADIOLOGY * * *Final Report* * * DATE OF EXAM: Dec 02 2020 10:05AM WOX 5291 - XR CHEST 2V FRONTAL/LAT / PROCEDURE REASON: multiple diagnoses * * * * Physician Interpretation * * * * EXAMINATION: CHEST RADIOGRAPH (2 VIEW FRONTAL & LATERAL) CLINICAL HISTORY: Other chest pain Myocardial infarct, old MQ: XC2_6 EXAM DATE/TIME: 12/02/2020 10:05 AM COMPARISON: 08/20/2011 RESULT: Lines, tubes, and devices: None. Lungs and pleura: No focal consolidation, pleural effusion or pneumothorax. Cardiomediastinal silhouette: Within normal limits. Bones and soft tissues: No acute osseous abnormality. DIVISION OF RADIOLOGY Provider, [facility] - 12/02/2020 * * *Final Report* * * DATE OF EXAM: Dec 02 2020 10:05AM WOX 5291 - XR CHEST 2V FRONTAL/LAT / PROCEDURE REASON: multiple diagnoses * * * * Physician Interpretation * * * * EXAMINATION: CHEST RADIOGRAPH (2 VIEW FRONTAL & LATERAL) CLINICAL HISTORY: Other chest pain Myocardial infarct, old MQ: XC2_6 EXAM DATE/TIME: 12/02/2020 10:05 AM COMPARISON: 08/20/2011 RESULT: Lines, tubes, and devices: None. Lungs and pleura: No focal consolidation, pleural effusion or pneumothorax. Cardiomediastinal silhouette: Within normal limits. Bones and soft tissues: No acute osseous abnormality. IMPRESSION IMPRESSION: No acute radiographic abnormality is appreciated. Lay Out Machine Operator: KEVIN Transcribe Date/Time: Dec 02 2020 10:09A Dictated by : EMELINA CAMACHO MD This examination was interpreted and the report reviewed and electronically signed by: EMELINA CAMACHO MD on Dec 02 2020 10:10AM EST [facility] XR Chest PA and LateralOrder ed By: [facility] Provider on 12-02-2020 [facility] XR FOOT 3V AP/LAT/OBL RTon 0 06-30-2020 XR FOOT 3V AP/LAT/OBL RT * * *Final Report* * * DATE OF EXAM: Jun 30 2020 11:11AM LDX 5337 - XR FOOT 3V AP/LAT/OBL RT / PROCEDURE REASON: Bone pain, foot * * * * Physician Interpretation * * * * EXAM TITLE: X-RAY RIGHT FOOT DATE: 06/30/2020 CLINICAL INDICATION/HISTORY: Foot pain, dropped furnace on right foot COMPARISON: None. TECHNIQUE: AP, oblique and lateral views of the right foot. FINDINGS: No fracture or dislocation. No lytic or blastic osseous lesions. Soft tissue swelling along the distal aspect of the metatarsals. IMPRESSION: No fracture or dislocation. Soft tissue swelling over the distal aspect of the metatarsals. Lay Out Machine Operator: KEVIN Transcribe Date/Time: Jun 30 2020 11:38A Dictated by : ESTEFANIA CHEN MD This examination was interpreted and the report reviewed and electronically signed by: ESTEFANIA CHEN MD on Jun 30 2020 11:41AM EST [id number] Normal [facility] APTTon 08-22-2018 aPTT Coag time (Bld) 34 s Normal 28 - 38 [facility] Comment on above: Result Comment: THE APTT IS NO LONGER USED FOR MONITORING UNFRACTIONATED HEPARIN THERAPY. FOR MONITORING HEPARIN THERAPY, USE THE HEPARIN ASSAY. Performed By: #### A PTT #### [facility] [address] [place] [address] BASIC METABOLIC PANELon Anion gap molar conc 9 mmol/L Low 10 - 20 [facility] Comment on above: Performed By: #### B MP #### [address] [address] Calcium mass conc 9.4 mg/dL Normal 8.6 - 10.3 [facility] Comment on above: Performed By: #### B MP #### [address] [address] Chloride molar conc 105 mmol/L Normal 98 - 107 [facility] Comment on above: Performed By: #### B MP #### [address] [address] Creatinine mass conc 0.94 mg/dL Normal 0.50 - 1.30 [facility] Comment on above: Performed By: #### B MP #### [address] [address] GFR- AM. >60 Normal >60 [facility] Comment on above: Result Comment: CALC ULATIONS OF ESTIMATED GFR ARE PERFORMED USING THE MDRD STUDY EQUATION FOR THE IDMS-TRACEABLE CREATININE METHODS. CLIN CHEM 2007;53:766-72 Performed By: #### B MP #### [address] [address] GFR-NON AM. >60 Normal >60 [facility] Comment on above: Performed By: #### B MP #### [address] [address] Glucose mass conc 99 mg/dL Normal 74 - 99 [facility] Comment on above: Performed By: #### B MP #### [address] [address] HCO3 molar conc (Bld) 28 mmol/L Normal 21 - 32 [facility] Comment on above: Performed By: #### B MP #### [address] [address] Potassium molar conc 4.1 mmol/L Normal 3.5 - 5.3 [facility] Comment on above: Performed By: #### B MP #### [address] [address] Sodium molar conc 138 mmol/L Normal 136 - 145 [facility] Comment on above: Performed By: #### B MP #### [address] [place] [address] Urea nitrogen mass conc 13 mg/dL Normal 6 - 23 [facility] Comment on above: Performed By: #### B MP #### [facility] [address] [place] [address] BASIC WITH IONIZED CAon 06-0 Anion gap molar conc 18 mmol/L Normal 10 - 20 [facility] Comment on above: Performed By: #### B ASIO ####[address] [address] CALCIUM, IONIZED 1.14 mmol/L Normal 1.10 - 1.33 [facility] Comment on above: Performed By: #### B ASIO ####[address] [address] Chloride molar conc 102 mmol/L Normal 98 - 107 [facility] Comment on above: Performed By: #### B ASIO ####[address] [address] Creatinine mass conc 0.90 mg/dL Normal 0.60 - 1.30 [facility] Comment on above: Result Comment: Hydr oxyurea can cause significant interference with creatinine measurement using the i-STAT device. An alternate method of creatinine measurement must be used in patients treated with hydroxyurea. Performed By: #### B ASIO ####[address] [address] GFR- AM. >60 Normal >60 [facility] Comment on above: Performed By: #### B ASIO ####[address] [address] GFR-NON AM. >60 Normal >60 [facility] Comment on above: Performed By: #### B ASIO ####[facility] [place] [address] Glucose mass conc 96 mg/dL Normal 74 - 99 [facility] Comment on above: Performed By: #### B ASIO ####[address] [address] HCO3 molar conc (Bld) 25 mmol/L Normal 21 - 32 [facility] Comment on above: Performed By: #### B ASIO ####[facility] [place] [address] Potassium molar conc 4.1 mmol/L Normal 3.5 - 5.3 [facility] Comment on above: Performed By: #### B ASIO ####[facility] [place] [address] Sodium molar conc 141 mmol/L Normal 136 - 145 [facility] Comment on above: Performed By: #### B ASIO ####[facility] [place] [address] Urea nitrogen mass conc 12 mg/dL Normal 6 - 23 [facility] Comment on above: Performed By: #### B ASIO ####[address] [address] CBC AND DIFFERENTIALon 08-22 % AUTOMATED IMMATURE GRAN 0.4 % Normal 0.0 - 0.9 [facility] Comment on above: Result Comment: Perc ent differential counts (%) should be interpreted in the context of the absolute cell counts (cells/L). Performed By: #### C BCDF #### [address] [address] % NEUTROPHIL 37.4 % Normal 40.0 - 80.0 [facility] Comment on above: Performed By: #### C BCDF #### [address] [address] Basophils/100 WBC (Bld) 0.03 x10E9/L Normal 0.00 - 0.10 [facility] Comment on above: Performed By: #### C BCDF #### [address] [address] Basophils/100 WBC (Bld) 0.6 % Normal 0.0 - 2.0 [facility] Comment on above: Performed By: #### C BCDF #### [address] [address] Eosinophils #/vol (Bld) 0.19 10*3/uL Normal 0.00 - 0.70 [facility] Comment on above: Performed By: #### C BCDF #### [address] [address] Eosinophils/100 WBC (Bld) 3.6 % Normal 0.0 - 6.0 [facility] Comment on above: Performed By: #### C BCDF #### [address] [address] Erythrocyte distribution width Ratio (RBC) 12.3 % Normal 11.5 - 14.5 [facility] Comment on above: Performed By: #### C BCDF #### [address] [address] Hematocrit Volume Fraction (Bld) 47.2 % Normal 41.0 - 52.0 [facility] Comment on above: Performed By: #### C BCDF #### [address] [address] Hemoglobin mass conc (Bld) 15.9 g/dL Normal 13.5 - 17.5 [facility] Comment on above: Performed By: #### C BCDF #### [address] [address] Lymphocytes #/vol (Bld) 2.64 10*3/uL Normal 1.20 - 4.80 [facility] Comment on above: Performed By: #### C BCDF #### [address] [address] Lymphocytes/100 WBC (Bld) 50.5 % Normal 13.0 - 44.0 [facility] Comment on above: Performed By: #### C BCDF #### [address] [address] MCHC mass conc (RBC) 33.7 g/dL Normal 32.0 - 36.0 [facility] Comment on above: Performed By: #### C BCDF #### [address] [address] MCV Entitic volume (RBC) 99 fL Normal 80 - 100 [facility] Comment on above: Performed By: #### C BCDF #### [address] [address] Monocytes #/vol (Bld) 0.39 10*3/uL Normal 0.10 - 1.00 [facility] Comment on above: Performed By: #### C BCDF #### [facility] [address] [place] [address] Monocytes/100 WBC (Bld) 7.5 % Normal 2.0 - 10.0 [facility] Comment on above: Performed By: #### C BCDF #### [facility] [address] [place] [address] Neutrophils #/vol (Bld) 1.96 10*3/uL Normal 1.20 - 7.70 [facility] Comment on above: Performed By: #### C BCDF #### [address] [address] Nucleated RBC/100 WBC Ratio (Bld) 0.0 /100 WBC Normal 0.0 - 0.0 [facility] Comment on above: Performed By: #### C BCDF #### [address] [place] [address] Platelets #/vol (Bld) 198 10*3/uL Normal 150 - 450 [facility] Comment on above: Performed By: #### C BCDF #### [address] [address] RBC #/vol (Bld) 4.77 x10E12/L Normal 4.50 - 5.90 [facility] Comment on above: Performed By: #### C BCDF #### [facility] [address] [place] [address], [place] [address] WBC #/vol (Bld) 5.2 10*3/uL Normal 4.4 - 11.3 [facility] [facility] Comment on above: Performed By: #### C BCDF #### [address] [place] [address] CHEST 1 VIEWon 08-22-2018 CHEST 1 VIEW Patient Name: MILTON PAPPAS STUDY: CHEST 1 VIEW; 08/22/2018 2:50 pm INDICATION: confusion. COMPARISON: none ACCESSION NUMBER(S): [id number] ORDERING CLINICIAN: EFRA TURNER TECHNIQUE: Single frontal view of the chest; Portable technique FINDINGS: LINES AND TUBES: n/a HEART AND MEDIASTINUM: Heart size: Within normal limits Thoracic aorta: Within expected limits Christal and nonvascular: within normal limits PULMONARY VESSELS: Within normal limits; no sign of edema LUNGS AND AIRWAYS: Clear; no acute airspace disease PLEURA: Effusion: No substantial pleural effusion on either side Pneumothorax: No substantial pneumothorax on either side Other: n/a BONES: No acute findings IMPRESSION: NO ACUTE DISEASE IN THE CHEST Electronically signed by: ESTEFANIA KESSLER MD Normal [facility] CT HEAD WO CONTRASTon 2018 CT HEAD WO CONTRAST Patient Name: MILTON PAPPAS STUDY: CT HEAD WO CONTRAST; 08/22/2018 2:18 pm INDICATION: confusion. COMPARISON: None ACCESSION NUMBER(S): [id number] ORDERING CLINICIAN: EFRA TURNER TECHNIQUE: CT of the brain from the skull vertex to the skull base, without intravenous contrast. FINDINGS: Acute intracranial hemorrhage: Negative Acute subdural hematoma: Negative Acute intracranial mass effect: Negative CT evidence of acute / subacute territorial ischemia: Negative Ventricles: Normal caliber and configuration Other brain findings: No additional findings to note Included paranasal sinuses: All clear Included mastoid air cells: All clear Skull: No lytic or blastic lesion Extracranial soft tissues: Scalp and occular globes grossly normal by CT IMPRESSION: NO ACUTE INTRACRANIAL PROCESS Electronically signed by: ESTEFANIA KESSLER MD Normal [facility] HEPATIC FUNCTION PANELon Albumin mass conc 4.3 g/dL Normal 3.4 - 5.0 [facility] Comment on above: Performed By: #### H EPFP #### [facility] [address] [place] [id number] ALP enzyme act/vol 111 U/L Normal 33 - 120 [facility] Comment on above: Performed By: #### H EPFP #### [facility] [address] [place] [id number] ALT enzyme act/vol 7 U/L Low 10 - 52 [facility] Comment on above: Result Comment: Vivian ents treated with Sulfasalazine may generate falsely decreased results for ALT. Performed By: #### H EPFP #### [facility] [address] [place] [id number] AST enzyme act/vol 17 U/L Normal 9 - 39 [facility] Comment on above: Performed By: #### H EPFP #### [address] [place] [address] Bilirubin mass conc 0.7 mg/dL Normal 0.0 - 1.2 [facility] Comment on above: Performed By: #### H EPFP #### [facility] [address] [place] [id number] Bilirubin.direct mass conc 0.0 mg/dL Normal 0.0 - 0.3 [facility] Comment on above: Performed By: #### H EPFP #### [address] [address] Protein mass conc 7.1 g/dL Normal 6.4 - 8.2 [facility] Comment on above: Performed By: #### H EPFP #### [address] [address] PT/INRon 08-22-2018 INR Coag RelTime (PPP) 1.0 {INR} Normal 0.9 - 1.1 [facility] Comment on above: Performed By: #### P TINR #### [address] [address] Prothrombin time (PT) Coag time (PPP) 10.6 s Normal 9.7 - 12.7 [facility] Comment on above: Performed By: #### P TINR #### [address] [address] Provider Note - ED v2on Protein mass conc Provider Note - ED v 2: Chart Review: ED NOTES ED NOTES: 58 year old male with a history of strokes and is on Plavix presents to the ED with possible stroke. The patient is aox3 at baseline and today was sitting at home with his son when he started feeling an onset of a stroke. He told his son to take him to the ED. Last known well was around noon. Upon arrival the patient was aox2 and complained of the right side of his face feeling funny. The patient denies diabetes and any recent falls or trauma. Review of Systems: Constitutional: Denies fatigue, fever, chills, night sweats, heat intolerance. Admits to weakness Skin: Denies changes, pruritus, rash, or changes in hair or nails. HEENT: Denies visual changes, eye pain, hearing loss, tinnitus, vertigo, ear pain, nasal congestion, dental problems, dysphagia, or speech difficulty. Neck: Denies neck swelling, pain, stiff neck, goiter, masses, or adenopathy. Cardiopulmonary: Denies cough, dyspnea, wheezing, hemoptysis, chest pain, palpitations, orthopnea, edema, claudication, syncope, hypertension. GI: Normal appetite, no n/v, hematemesis, melena, heartburn, abdominal pain, jaundice, change in bowel habits or rectal pain. : No dysuria, frequency, nocturia, hematuria, incontinence or polyuria. Musculoskeletal: Denies myalgias, backache, joint pain, stiffness. Hematologic: Denies lymphadenopathy, bleeding, bruising, anemia. Neurological: Denies seizures, paralysis, muscle weakness, tremors, paresthesia, numbness or tingling. Admits to headaches, confusion. Psych: No anxiety, depression suicidal or homicidal ideation. Vital Signs: Listed on the chart. Reviewed. Medications: As listed on the chart Allergies: As listed on the chart Physical Exam Appearance: Alert cooperative, in no acute distress. Well nourished & well hydrated. Confusion, some thought-blocking. Skin: Intact, dry skin, no lesions, rash, petechiae or purpura. Eyes: PERRLA, EOMs intact, conjunctiva pink with no redness or exudates. Cornea & anterior chamber are clear, eyelids without lesions. No scleral icterus. ENT: Hearing grossly intact. External auditory canals patent, tympanic membranes intact with visible landmarks. Nares patent and mucus membranes moist. Dentition without lesions. Pharynx clear, uvula midline. Neck: Supple, without meningismus. Thyroid not palpable. Trachea at midline. No lymphadenopathy. Pulmonary: Clear bilaterally with good chest wall excursion. No rales, rhonchi or wheezing. No accessory muscle use or stridor. Cardiac: Normal rate. Normal S1, S2 without murmur, rub, gallop or extrasystole. No JVD, Carotids without bruits. Abdomen: Soft, nontender, active bowel sounds. No palpable organomegaly. No rebound or guarding. No CVA tenderness. Genitourinary: Exam deferred. Musculoskeletal: Full range of motion. No pain or deformity. Pulses full and equal. No cyanosis, clubbing, or edema. Neurological: Cranial nerves II through XII are grossly intact, finger-nose touch is normal, normal sensation, no weakness, gait is steady, Romberg is negative, no focal findings identified. Psychiatric: Appropriate mood and affect. HISTORY OF PRESENTING ILLNESS MILTON is a 58 year old Male and was seen by me at 22-Aug-2018 14:12 for a chief complaint of altered mental status (Pt presents to ED from home as walk in with son. Son saw pt normal at 1200, p/t arrival, pt requested to come in, felt confued. Stroke team called on arrival, ptt ehnntake to CT. Pt with/ hx of TIA's, has facial droop, slow to respond to questions.) . Triage Information: Most recent Vital Sign Value Date Temp (F): 97.8 08-22-2018 14:06 Temp (C): 36.6 08-22-2018 14:06 Heart Rate (beats/min): 60 08-22-2018 14:06 Respirations (breaths/min): 20 08-22-2018 14:06 SpO2 (%): 98 08-22-2018 14:06 BP Systolic (mm Hg): 172 08-22-2018 14:06 BP Diastolic (mm Hg): 91 08-22-2018 14:06 PAST MEDICAL HISTORY ATTESTATION: I have reviewed and confirmed nurse's/medic's notes for patient's medications, allergies, medical history, and surgical history ALLERGIES/INTOLERANCES: Allergy Allergen: aspirin Type: Drug Reaction: Unknown Allergen: penicillin Type: Drug Reaction: Other Allergen: Dilaudid Type: Drug Reaction: Unknown HEALTH HISTORY: No documented data. OUTPATIENT MEDICATIONS: Home Medications Review Status for Reconciliation: N/A Med Status: N/A No documented data. SIGNIFICANT EVENTS: Past Medical History Description:KS Description:TIA Description:HLD Description:CVA RESULTS/VITAL SIGNS RESULTS: Recent Lab Results: I have reviewed these laboratory results: Urinalysis 22-Aug-2018 15:40:00 ResultValue Color, Urine STRAW Reference Range: STRAW,YELLOW Appearance, Urine CLEAR Specific [place], Urine 1.005 pH, Urine 6.0 Protein, Urine NEGATIVE Glucose, Urine NEGATIVE Blood, Urine NEGATIVE Ketones, Urine NEGATIVE Bilirubin, Urine NEGATIVE Urobilinogen, Urine <2.0 Nitrite, Urine NEGATIVE Leukocyte Esterase, Urine NEGATIVE Hepatic Function Panel 22-Aug-2018 14:20:00 ResultValue Aspartate Transaminase, Serum 17 ALB 4.3 T Bili 0.7 Bilirubin, Serum Direct - Conjugated 0.0 ALKP 111 Alanine Aminotransferase, Serum 7 L T Pro 7.1 Complete Blood Count + Differential 22-Aug-2018 14:20:00 ResultValue White Blood Cell Count 5.2 Nucleated Erythrocyte Count 0.0 Red Blood Cell Count 4.77 HGB 15.9 HCT 47.2 MCV 99 MCHC 33.7 PLT 198 RDW-CV 12.3 Neutrophil % 37.4 Immature Granulocytes % 0.4 Lymphocyte % 50.5 Monocyte % 7.5 Eosinophil % 3.6 Basophil % 0.6 Neutrophil Count 1.96 Lymphocyte Count 2.64 Monocyte Count 0.39 Eosinophil Count 0.19 Basophil Count 0.03 Basic Metabolic Panel 22-Aug-2018 14:20:00 ResultValue Glucose, Serum 99 NA 138 K 4.1 CL 105 Bicarbonate, Serum 28 Anion Gap, Serum 9 L BUN 13 CREAT 0.94 GFR-Non >60 GFR- >60 Calcium, Serum 9.4 PT + INR, Plasma 22-Aug-2018 14:20:00 ResultValue Prothrombin Time, Plasma 10.6 International Normalized Ratio, Plasma 1.0 Troponin I, Serum 22-Aug-2018 14:20:00 ResultValue Troponin I, Serum <0.02 Activated Partial Thromboplastin Time 22-Aug-2018 14:20:00 ResultValue Activated Partial Thromboplastin Time 34 Radiology Results: Impression: NO ACUTE DISEASE IN THE CHEST Xray Chest 1 View [Aug 22 2018 3:01PM] Impression: NO ACUTE INTRACRANIAL PROCESS CT Head without Contrast [Aug 22 2018 2:33PM] VITAL SIGNS: T PRBP SpO2O2(LPM) %FiO2 Method 22-Aug-2018 16:15:[id number] 98 room air, no respiratory support 22-Aug-2018 15:15:00-7466417/70 97 room air, no respiratory support 22-Aug-2018 15:00:00-4729243/66 98 22-Aug-2018 14:40:00-0605406/69 97 22-Aug-2018 14:35:00-7408700/72 99 room air, no respiratory support 22-Aug-2018 14:24:00-9699640/78 96 room air, no respiratory support 22-Aug-2018 14:06:[id number]/91 98 room air, no respiratory support MEDICAL DECISION MAKING/ED COURSE MDM/ED COURSE: 58 year old male presents to the ED with stroke symptoms. [14:18] NIH scale was zero. [14:22] Reviewed scan, no acute hemorrhage. Discussed the case with neuro who recommended treat blood pressure and headache and see if symptoms resolve. Patient is currently stable pending lab results. Upon reevaluation patient feels better with most symptoms resolved. He states he still feels foggy however has significantly improved after meds. He does not want to stay in the ED. Patient seen and examined again and is currently electing to sign out AGAINST MEDICAL ADVICE. They are currently alert and oriented 3, of sound judgment and decision-making capacity. Extensive conversation regarding the risks of leaving including infection, permanent disability, or from incomplete workup and treatment. Despite further options including admission to the hospital they are electing to leave AGAINST MEDICAL ADVICE. Patient refused hospitalization and recommended continue home meds. He will be diagnosed with TIA, accelerated HTN. CLINICAL DECISION SUPPORT STROKE DOCUMENTATION Arrival From: home(1) Mode of Arrival: private vehicle(1) Time Last Known Well Date/Time:known(1); 22-Aug-2018 12:00(1) NIHSS Time: 14:20 Level of Consciousness: (0) Alert; keenly responsive LOC Questions: (0) Answers both questions correctly LOC Commands: (0) Performs both tasks correctly Best Gaze: (0) Normal Visual: (0) No visual loss Facial Palsy: (0) Normal symmetrical movements Motor Arm, Left: (0) No drift; limb holds 90 (or 45) degrees for full 10 secs Motor Arm, Right: (0) No drift; limb holds 90 (or 45) degrees for full 10 secs Motor Leg, Left: (0) No drift; leg holds 30 degree position for full 5 secs Motor Leg, Right: (0) No drift; leg holds 30 degree position for full 5 secs Limb Ataxia: (0) Absent Sensory: (0) Normal; no sensory loss Best Language: (0) No aphasia; normal Dysarthria: (0) Normal Extinction and Inattention (formally neglect): (0) No abnormality NIH Stroke Scale: Total: 0 IV tPA Therapy for Ischemic Stroke Time Last Known Well Date/Time: known; 22-Aug-2018 12:00 CLINICAL IMPRESSION Diagnosis/Annotation: ED Dx Name:TIA (transient ischemic attack) Code:G45.9 Name:Accelerated hypertension Code:I10 Dispostion: AMA (saw a physician/midlevel provider and clinician was able to provide reasons for staying for treatment & form is signed) Condition on Disposition: improved ATTESTATION Scribe Name: Víctor Murray Scribing on Behalf of: Dr. Efra Turner ATTENDING SCRIBE ATTESTATION STATEMENT Efra Birch DO, attests all medical record entries made by the scribe were under my direction and personally dictated by me. I have reviewed the chart and agree that the record accurately reflects my performance of the history, physical, and assessment plan. I have also personally directed, reviewed, and agree with disposition instructions. Comments/Additional Findings: I, Dr. Efra Turner, attests all medical record entries made by the scribe were under my direction and personally dictated by me. I have reviewed the chart and agree that the record accurately reflects my performance of the history, physical, and assessment and plan. I have also personally directed, reviewed, and agree with disposition instructions. Víctor Cast, am scribing for and in the presence of Dr. Efra Turner. CRITICAL CARE TIME Is this a critically ill patient: no Electronic Signatures: Víctor Murray (Scribe) (Entered 22-Aug-2018 15:35) Entered: Provider Note - ED v2 Efra Turner () (Signed 02-Sep-2018 01:33) Authored: Provider Note - ED v2 Last Updated: 02-Sep-2018 01:33 by Efra Turner () References: 1. Data Referenced From Triage - ED 08/22/2018 02:06 PM Normal [facility] Risk Screen - Adult Emergenc yon 08-22-2018 Risk Screen - Adult Emergency Preferred Language: Preferred Language: Preferred Language for Discussing Health Care (patient/designee)[place] Advanced Directives: Advance Directive Medicalno Family Violence Adult: Abuse Screen: Are you or have you been threatened or abused physically, emotionally, or sexually by anyoneno Learning Assessment (Patient): Learning Assessment (Patient): Patient is Able to be Assessed for Learningyes Factors Influencing Readiness to Learnacuteness of illness Factors that Impact Ability to Learnvisual problems Devices/Methods Used to Communicateglasses Learning Preferencesindividual instruction Cultural Considerationsnone Developmental Considerationsnone Anabaptist Considerationsnone Learning Assessment (Other Learner): Learning Assessment (Other Learner): Other learner availableno Fall Risk Adult: Falls Risk: Altered Mobilityassistive device, cane Change in Mental Statusno Relevant Medical History / Diagnosisnone Fall Historynone Altered Eliminationno Medications that Might Alter: equilibrium, cognitive judgement or severity of injuryanticoagulants, antihypertensives Sensory Deficitno UNABLE or UNWILLING to Follow Directionsno Patient Identified as a Falls Riskyes Pressure Injury/TB/Substance: Pressure Injury: Pressure Injury Present on Admissionno Do you have a coughno Substance Use Current or Former Historynever: e-Cigarette/Vaping, Street Drugs YES: Cigarette/Tobacco, Alcohol Smoking Statuscurrent every day smoker Alcohol Useoccasionally Admission Risk Screen: Significant IndicatorsComplete CAGE: CAGE: Is this an injured patient at a Trauma Center ([facility]/[place]): no Electronic Signatures: Xiao Glover (CINDY) (Signed 22-Aug-2018 15:16) Authored: Preferred Language, Advanced Directives, Family Violence Adult, Learning Assessment (Patient), Learning Assessment (Other Learner), Fall Risk Adult, Pressure Injury/TB/Substance, CAGE Last Updated: 22-Aug-2018 15:16 by Xiao Glover (CINDY) Normal [facility] TROPONIN Ion 08-22-2018 Troponin I.cardiac mass conc ng/mL Normal 0.00 - 0.03 [facility] Comment on above: Result Comment: LESS THAN 0.04 NG/ML: NEGATIVE REPEAT TESTING IN THREE TO SIX HOURS IF CLINICALLY INDICATED. 0.04 - 0.5 NG/ML: CONSISTENT WITH POSSIBLE CARDIAC DAMAGE AND POSSIBLE INCREASED CLINICAL RISK. SERIAL MEASUREMENTS MAY HELP ASSESS EXTENT OF MYOCARDIAL DAMAGE. >0.5 NG/ML: CONSISTENT WITH CARDIAC DAMAGE, INCREASED CLINICAL RISK AND MYOCARDIAL INFARCTION. SERIAL MEASUREMENTS MAY HELP ASSESS EXTENT OF MYOCARDIAL DAMAGE. . Note: Troponin I testing is performed using different testing methodology at [facility] than at other [facility]. Direct result comparisons should only be made within the same method. Performed By: #### T ROP2 #### [facility] [address] [place] [address] Triage - EDon 08-22-2018 Triage - ED Risk Screens: Has the patient fallen before (or is the patient in the ED as a result of a fall)has not had a fall Is the patient cognitively impairedcognitively impaired Does the patient have an impaired gaitdoes not have impaired gait History of falling (immediate or previous)no (0) Secondary Diagnosisno (0) Ambulatory Aidsnone/bedrest/nurse assist (0) Intravenous Therapy/ Heparin/Saline Lockno (0 Gait/Transferringweak (10) Mental Statusoriented to own ability (0) Adam Fall Risk Score10 Low Risk 0 - 24bed in low position with brakes locked and side rails up, call light provided to patient, complete hourly rounding on patient for safety, falls risk band applied to patient, mode of toileting discussed with patient, nonslip footwear placed on patient, patient/family education completed, patient oriented to surroundings Chart Review: CHIEF COMPLAINT MILTON PAPPAS is a Male patient with a chief complaint of altered mental status (Pt presents to ED from home as walk in with son, ambulated independently into triage room. Son saw pt normal at 1200. P/t arrival, pt requested son to bring him in as he felt confused. Stroke team called on arrival, pt then taken to CT. Pt with hx of TIA's, has facial droop, slow to respond to questions, states that he feels funny, has GARDUNO on top of head. Speech clear. Pt is awake, alert, oriented to self, place, year. Son states that pt remains confused. Pt on plavix). Triage Date/Time: 22-Aug-2018 14:06 Vital Signs: Temperature: 97.8F ( 36.6C) Blood Pressure: 172/91 Mean: Heart Rate: 60 Respiratory Rate: 20 Pulse Oximetry: 98% on room air, no respiratory support. Height: 6 feet inches. CM Weight: 225.0 pounds. Calculated 102.0 kg. (stated (son)) Allergies: yes Patient has homicidal thoughts: no YRN: 2 Last Known Well: known Time Last Known Well Date/Time: 22-Aug-2018 12:00 [place] Suicide Suicide Risk Screen In the Past Month: Have you wished you were or wished you could go to sleep and not wake up no In the Past Month: Have you had any actual thoughts of killing yourself no In Your Lifetime: Have you ever done anything, started to do anything, or prepared to do anything to end your life no PAIN Pain Scale Used: COLLINS ARRIVAL INFORMATION Means of Arrival: Ambulatory Mode of Arrival: private vehicle Arrival From: home Accompanied By: immediate family member PRIMARY ASSESSMENT ABCD Normal Findings: airway open and patent, breathing normal, circulation normal and alert and oriented PAST MEDICAL HISTORY Immunization History: Last Known Tetanus Immunization: Unknown TRAVEL HISTORY Travel Exposure History: NO travel to International locations in the past 30 days Past Medical History: Past Medical History Reviewedyes CVA: Past Medical History, Active HLD: Past Medical History, Active TIA: Past Medical History, Active [place]: Past Medical History, Active Electronic Signatures: Xiao Glover (RN) (Signed 22-Aug-2018 14:38) Authored: Triage, Past Medical History Last Updated: 22-Aug-2018 14:38 by Xiao Glover) Normal [facility] URINALYSISon 08-22-2018 Appearance Nom (U) CLEAR Normal CLEAR [facility] Comment on above: Performed By: #### U A ####[address] [address] Bilirubin mass conc Negative Normal NEGATIVE [facility] Comment on above: Performed By: #### U A ####[address] [address] BLOOD Negative Normal NEGATIVE [facility] Comment on above: Performed By: #### U A ####[facility] [place] [id number] Color Nom (U) STRAW Normal STRAW,YELLO W [facility] Comment on above: Performed By: #### U A ####[facility] [place] [address] Glucose mass conc Negative Normal NEGATIVE [facility] Comment on above: Performed By: #### U A ####[address] [address] Ketones Ql (U) Negative Normal NEGATIVE [facility] Comment on above: Performed By: #### U A ####[address] [address] Leukocyte esterase Test strip Ql (U) Negative Normal NEGATIVE [facility] Comment on above: Performed By: #### U A ####[facility] [place] [address] Nitrite Ql (U) Negative Normal NEGATIVE [facility] Comment on above: Performed By: #### U A ####[facility] [place] [address] pH (Bld) 6.0 Normal 5.0 - 8.0 [facility] Comment on above: Performed By: #### U A ####[facility] [place] [address] Protein mass conc (U) Negative Normal NEGATIVE [facility] Comment on above: Performed By: #### U A ####[facility] [place] [address] Specific gravity Relative Density (U) 1.005 Normal 1.005 - 1.035 [facility] Comment on above: Performed By: #### U A ####[facility] [place] [address] Urobilinogen Qn (U) <2.0 Normal 0.0 - 1.9 [facility] Comment on above: Performed By: #### U A ####[facility] [place] [address] Vital Signs Date Time Vital Sign Value Performing Clinician Facility 08-14-2024 09:24040 Body height 185.42 cm No Primary Care Physician [facility] 08-14-2024 09:24-0400 Body mass index (BMI) [Ratio] 27.9 kg/m2 No Primary Care Physician [facility] 08-14-2024 09:24-0400 Body weight 96.16 kg No Primary Care Physician [facility] 08-14-2024 09:24-0400 Diastolic blood pressure 80 mm[Hg] No Primary Care Physician [facility] 08-14-2024 09:24-0400 Heart rate 59 /min No Primary Care Physician [facility] 08-14-2024 09:24-0400 Respiratory rate 18 /min No Primary Care Physician [facility] 08-14-2024 09:24-0400 Systolic blood pressure 122 mm[Hg] No Primary Care Physician [facility] 06-20-2024 10:06-0400 Body mass index (BMI) [Ratio] 29.19 kg/m2 Lucas Graham APRN.GROUP BILLING COORDINATOR Work Phone: [facility] 06-20-2024 10:06-0400 Body weight 99 kg Lucas Graham APRN.GROUP BILLING COORDINATOR Work Phone: [facility] 06-20-2024 10:06-0400 Diastolic blood pressure 72 mm[Hg] Lucas Graham APRN.GROUP BILLING COORDINATOR Work Phone: [facility] 06-20-2024 10:06-0400 Heart rate 61 /min Lucas Graham APRN.GROUP BILLING COORDINATOR Work Phone: [facility] 06-20-2024 10:06-0400 Systolic blood pressure 160 mm[Hg] Lucas Graham APRN.GROUP BILLING COORDINATOR Work Phone: [facility] 06-05-2024 10:02-0400 Body mass index (BMI) [Ratio] 29.4 kg/m2 Lcuas Graham APRN.GROUP BILLING COORDINATOR Work Phone: [facility] 06-05-2024 10:02-0400 Body weight 99.7 kg Lucas Graham APRN.GROUP BILLING COORDINATOR Work Phone: [facility] 06-05-2024 10:02-0400 Diastolic blood pressure 84 mm[Hg] Lucas Graham APRN.GROUP BILLING COORDINATOR Work Phone: [facility] 06-05-2024 10:02-0400 Heart rate 66 /min Lucas Graham APRN.GROUP BILLING COORDINATOR Work Phone: [facility] 06-05-2024 10:02-0400 SaO2% (BldA) [Mass fraction] 98 % Lucas Graham APRN.GROUP BILLING COORDINATOR Work Phone: [facility] 06-05-2024 10:02-0400 Systolic blood pressure 160 mm[Hg] Lucas Graham APRN.GROUP BILLING COORDINATOR Work Phone: [facility] 04-18-2024 09:44-0500 Body height 185.[address] Maurilio Pabon MD Work Phone: 4(608)899-460162 [place] [address] 04-18-2024 09:44-0500 Body weight 98.[address] Maurilio Pabon MD Work Phone: 0(940)[phone] [place] [address] 04-18-2024 09:43-0500 Body mass index (BMI) [Ratio] 28.6 kg/m2 Dr. Maurilio Pabon MD Work Phone: 5(493)709-565662 [place] [address] 04-02-2024 10:18-0500 Body mass index (BMI) [Ratio] 28.6 kg/m2 Dr. Maurilio Pabon MD Work Phone: 2(503)766-226262 [place] [address] 04-02-2024 10:18-0500 Body weight 98.[address] Maurilio Pabon MD Work Phone: 7(441)403-231462 [place] [address] 04-02-2024 10:18-0500 Diastolic blood pressure 75 mm[Hg] Dr. Maurilio Pabon MD Work Phone: 9(017)422-859562 [place] [address] 04-02-2024 10:18-0500 Heart rate 61 /min Dr. Maurilio Pabon MD Work Phone: 8(751)699-141862 [place] [address] 04-02-2024 10:18-0500 Respiratory rate 18 /min Dr. Maurilio Pabon MD Work Phone: 8(006)817-010962 [place] [address] 04-02-2024 10:18-0500 SaO2% (BldA) [Mass fraction] 97 % Dr. Maurilio Pabon MD Work Phone: 0(003)946-148762 [place] [address] 04-02-2024 10:18-0500 Systolic blood pressure 112 mm[Hg] Dr. Maurilio Pabon MD Work Phone: 6(624)524-226462 [place] [address] 03-05-2024 10:27-0500 Body mass index (BMI) [Ratio] 29.11 kg/m2 Jovan White MD Work Phone: 1(498)851-159988 [place] [address] 03-05-2024 10:27-0500 Body temperature 97.81 [degF] Jovan White MD Work Phone: 8(084)314-326588 [place] [address] 03-05-2024 10:27-0500 Body weight 98.7 kg Jovan White MD Work Phone: [facility] 03-05-2024 10:27-0500 Diastolic blood pressure 76 mm[Hg] Jovan White MD Work Phone: [facility] 03-05-2024 10:27-0500 Heart rate 82 /min Jovan White MD Work Phone: [facility] 03-05-2024 10:27-0500 Respiratory rate 16 /min Jovan White MD Work Phone: [facility] 03-05-2024 10:27-0500 SaO2% (BldA) [Mass fraction] 97 % Jovan White MD Work Phone: [facility] 03-05-2024 10:27-0500 Systolic blood pressure 124 mm[Hg] Jovan White MD Work Phone: [facility] 12-14-2021 14:10-0400 Body height 187.[address] Maurilio Pabon Work Phone: [facility] Work Phone: 12-14-2021 14:10-0400 Body mass index (BMI) [Ratio] 26.9 kg/m2 Dr. Maurilio Pabon Work Phone: [facility] Work Phone: 12-14-2021 14:10-0400 Body weight 95.[address] Maurilio Pabon Work Phone: [facility] Work Phone: 12-14-2021 14:10-0400 Diastolic blood pressure 78 mm[Hg] Dr. Maurilio Pabon Work Phone: [facility] Work Phone: 12-14-2021 14:10-0400 Heart rate 56 /min Dr. Maurilio Pabon Work Phone: [facility] Work Phone: 12-14-2021 14:10-0400 Respiratory rate 16 /min Dr. Maurilio Pabon Work Phone: [facility] Work Phone: 12-14-2021 14:10-0400 Systolic blood pressure 133 mm[Hg] Dr. Maurilio Pabon Work Phone: [facility] Work Phone: Encounters Encounter Date Encounter Type Care Provider Facility Start: 01-28-2025 ambulatory Maurilio Pabon [facility] lity:[facility] Start: 01-28-2025 End: 01-28-2025 ambulatory Maurilio Pabon [place] [place] Start: 09-17-2024 [facility] Start: 08-21-2024 End: 08-21-2024 Patient encounter procedure Jolynn Gomez Work Phone: Podiatry Comment on above: Plantar fasciitis (P rimary Dx); Arthritis of right midfoot Start: 08-21-2024 End: 08-21-2024 ambulatory JOLYNN GOMEZ Facility:[facility] Start: 08-21-2024 End: 08-21-2024 Subsequent hospital visit by physician [facility] Keshawn Work Phone: Radiology Comment on above: Pain in left foot [M 79.672] Start: 08-14-2024 End: 08-14-2024 Patient encounter procedure Yoana MCMAHON -[facility] Work Phone: Start: 08-14-2024 End: 08-14-2024 ambulatory No Primary Care Physician [facility] Work Phone: Start: 06-24-2024 End: 06-24-2024 Follow-up encounter Lucas Graham APRN.CNP Work Phone: [facility] Start: 06-23-2024 End: 06-23-2024 ambulatory LUCAS GRAHAM Facility: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, unspecified vessel or lesion type; Hyperlipidemia, unspecified hyperlipidemia type; Hypertension, essential; Screening for diabetes mellitus; Screening for prostate cancer; Bilateral leg pain; Bilateral leg weakness; Bilateral numbness and tingling of arms and legs; 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 Start: 06-05-2024 End: 08-05-2024 Follow-up encounter Lucas Graham APRN.CNP Work Phone: [facility] Start: 06-05-2024 End: 06-05-2024 Subsequent hospital visit by physician Xr [facility] Work Phone: Radiology Comment on above: SOB (shortness of br eath) [R06.02] Start: 06-05-2024 End: 06-05-2024 ambulatory LUCAS GRAHAM Facility:[facility] Start: 06-05-2024 End: 06-05-2024 Patient encounter procedure Lucas Graham APRN.GROUP BILLING COORDINATOR Work Phone: [facility] Comment on above: SOB (shortness of br eath) (Primary Dx); Chest pain, mid sternal; Bilateral leg pain; Bilateral leg weakness; Bilateral numbness and tingling of arms and legs Start: 06-04-2024 End: 06-04-2024 ambulatory Cisco Pabon MD Work Phone: [facility] Comment on above: leg pain Start: 04-30-2024 End: 04-30-[address] Maurilio Pabon MD Work Phone: [facility] Work Phone: Start: 04-30-2024 End: 04-30-[address] Abel Mckeon MD -[facility] Work Phone: Start: 04-02-2024 End: 04-02-2024 Patient encounter procedure Yoana Molina PA -[facility] Work Phone: Start: 04-02-2024 End: 04-02-2024 ambulatory Maurilio Pabon [place] [place] Start: 03-05-2024 End: 03-05-2024 ambulatory CISCO PABON Facility:[facility] Start: 03-05-2024 End: 03-05-2024 Office outpatient visit 25 minutes Jovan White MD Work Phone: [facility] Comment on above: Acute non-recurrent sinusitis, unspecified location (Primary Dx) Start: 02-08-2024 ambulatory [facility] Facility: [facility] Start: 02-04-2024 ambulatory Abel Mckeon Facility:[facility] Start: 02-03-2024 End: 02-04-2024 ambulatory [facility] Facility:[facility] Start: 08-16-2022 Telephone encounter Maurilio Pabon MD Work Phone: [facility] Comment on above: Results Start: 12-21-2021 End: 12-21-[address] Maurilio Pabon Work Phone: [facility] Work Phone: Start: 12-21-2021 End: 12-21-[address] Maurilio Pabon Work Phone: [facility] Start: 12-21-2021 Non-patient / Non-visit Dr. Yan Pabon Work Phone: [facility] Start: 12-14-2021 End: 12-14-[address] Maurilio Pabon Work Phone: [facility] Start: 12-02-2020 End: 12-02-2020 Subsequent hospital visit by physician Xr [facility] Work Phone: Radiology Comment on above: Other chest pain [R0 7.89] Procedures Date Procedure Procedure Detail Performing Clinician Start: 06-23-2024 Lipid 1996 panel - S apollo or Plasma Lucas Graham DURABLE MEDICAL EQUIPMENT TECHNICIAN.GROUP BILLING COORDINATOR Work Phone: Start: 06-05-2024 Radex spine lumbosac ral minimum 4 views Lucas Graham DURABLE MEDICAL EQUIPMENT TECHNICIAN.GROUP BILLING COORDINATOR Work Phone: Start: 06-05-2024 Radiologic exam ches t 2 views Lucas Graham DURABLE MEDICAL EQUIPMENT TECHNICIAN.GROUP BILLING COORDINATOR Work Phone: Start: 04-21-2024 Estimated creatinine clearance No Primary Care Physician Start: 04-21-2024 Measurement of renal function No Primary Care Physician Comment on above: GFR Calc Start: 12-02-2020 Radiologic exam ches t 2 views Cisco Pabon MD Work Phone: Start: 12-02-2020 Lipid 1996 panel - S apollo or Plasma [facility] Work Phone: Plan of Treatment Date Care Activity Detail Author Start: 2036 RSV Vaccine (1 - 1-d ose 75+ series) RSV Vaccine (1 - 1-dose 75+ series) [facility] Start: 06-23-2029 Lipid panel Lipid Screening [facility] Start: 06-23-2029 Prostate specific antigen measurement Prostate Cancer Screening Discussion [facility] Start: 06-24-2027 Diabetes Screening Diabetes Screenin [facility] Start: 12-02-2025 Lipid panel Lipid Screening [facility] Start: 12-02-2025 LIPID SCREEN LIPID SCREEN [facility] Start: 12-02-2025 PROSTATE CANCER SCREENING DISCUSSION PROSTATE CANCER SCREENING DISCUSSION [facility] Start: 12-02-2025 Prostate specific antigen measurement Prostate Cancer Screening Discussion [facility] Start: 08-15-2025 DIABETES SCREEN DIABETES SCREEN [facility] Start: 08-15-2025 Diabetes Screening Diabetes Screenin g [facility] Start: 06-23-2025 Hepatitis B surface antibody level LDL Cholesterol [facility] Start: 06-20-2025 Annual PCP Team Bean Snapper raisa Disease Visit Annual PCP Team Chronic Disease Visit [facility] Start: 06-20-2025 Anxiety Screening Anxiety Screening [facility] Comment on above: Postponed from 06/15 (Declined at this time) Start: 06-20-2025 Covid-19 Vaccine ( season) Covid-19 Vaccine ( season) [facility] Comment on above: Postponed from 11/17 (Declined at this time) Start: 06-20-2025 Pneumococcal Vaccine : 50+ (1 of 2 - PCV) Pneumococcal Vaccine: 50+ (1 of 2 - PCV) [facility] Comment on above: Postponed from 06/15 (Declined at this time) Start: 06-20-2025 Screening for malign ant neoplasm of lung Lung Cancer Screening [facility] Comment on above: Postponed from 06/15 (Declined at this time) Start: 06-20-2025 Shingrix Vaccine (1 of 2) Shingrix Vaccine (1 of 2) [facility] Comment on above: Postponed from 06/15 (Declined at this time) Start: 06-20-2025 Urine microalbumin profile DTaP,Tdap,Td Vaccine (1 - Tdap) [facility] Comment on above: Postponed from 06/15 (Declined at this time) Start: 06-05-2025 Annual PCP Team Bean Snapper raisa Disease Visit Annual PCP Team Chronic Disease Visit [facility] Start: 03-05-2025 BP Controlled (<130/80) BP Controlle d (<130/80) [facility] Start: 11-17-2024 Influenza vaccination Influenz a Vaccine (Season Ended) [facility] Start: 09-15-2024 Influenza vaccination Influenza Vacc ine (#1) [facility] Comment on above: Postponed from 11/17 (Declined at this time) Start: 08-21-2024 End: 08-21-2024 Patient encounter procedure Radiology Comment on above: left heel XR Left heel pain Start: 06-20-2024 End: 09-19-2024 CBC W Auto Differential panel - Blood COMPLETE BLOOD COUNT AND DIFFERENTIAL Lab Routine Adult wellness visit Expected: 06/20/2024, Expires: 09/19/2024 [facility] Work Phone: Comment on above: Expected: 06/20/2024 , Expires: 09/19/2024 Start: 06-20-2024 End: 09-19-2024 Comprehensive metabolic 2000 panel - Serum or Plasma COMPREHENSIVE METABOLIC PANEL Lab Routine Adult wellness visit Expected: 06/20/2024, Expires: 09/19/2024 [facility] Comment on above: Expected: 06/20/2024 , Expires: 09/19/2024 Start: 06-20-2024 Depression Screening Depression Scre ening [facility] Comment on above: Postponed from 06/15 (Declined at this time) Start: 06-20-2024 End: 09-19-2024 Hemoglobin A1c in Blood HEMOGLOBIN A1C Lab Routine Screening for diabetes mellitus Expected: 06/20/2024, Expires: 09/19/2024 [facility] Comment on above: Expected: 06/20/2024 , Expires: 09/19/2024 Start: 06-20-2024 End: 09-19-2024 LIPID PANEL, NONFASTING LIPID PANEL, NONFASTING Lab Routine Hyperlipidemia, unspecified hyperlipidemia type Expected: 06/20/2024, Expires: 09/19/2024 [facility] Comment on above: Expected: 06/20/2024 , Expires: 09/19/2024 Start: 06-20-2024 End: 09-19-2024 PSA/PROSTATE SPECIFIC ANTIGEN SCREENING PSA/PROSTATE SPECIFIC ANTIGEN SCREENING Lab Routine Screening for prostate cancer Expected: 06/20/2024, Expires: 09/19/2024 [facility] Comment on above: Expected: 06/20/2024 , Expires: 09/19/2024 Start: 06-20-2024 End: 06-20-2024 Patient encounter procedure 06/20/2024 10:20 AM EDT Office Visit [facility] [address] [place] [phone] Lucas Graham APRN.[facility] [address] [place], [place] [phone] wellness [facility] Comment on above: wellness Start: 06-05-2024 End: 06-05-2024 Patient encounter procedure 06/05/2024 10:20 AM EDT Office Visit [facility] [address] [place] [phone] Lucas Graham APRN.GROUP BILLING COORDINATOR [address] [place], [place] [address] left knee giving out at times with popping, swelling, discomfort, declined sooner appt on 06/04 [facility] Comment on above: left knee giving out at times with popping, swelling, discomfort, declined sooner appt on 06/04 Start: 11-18-2023 Covid-19 Vaccine ( season) Covid-19 Vaccine ( season) [facility] Start: 11-18-2023 Influenza vaccination Influenza Vacc ine (#1) [facility] Start: 08-16-2023 ANNUAL PCP TEAM CAP PARTS CUTTER RAISA DISEASE VISIT ANNUAL PCP TEAM CHRONIC DISEASE VISIT [facility] Start: 08-16-2023 BP CONTROLLED (<130/80) BP CONTROLLE D (<130/80) [facility] Start: 11-17-2022 Influenza vaccination INFLUENZA (Sea son Ended) [facility] Start: 03-19-2022 DEPRESSION ASSESSMENT DEPRESSION ASS ESSMENT [facility] Start: 12-02-2021 Hepatitis B surface antibody level LDL CHOLESTEROL [facility] Start: 06-16-2011 Influenza vaccination LUNG CANCER SC REENING [facility] Start: 06-16-2011 Screening for malign ant neoplasm of lung Lung Cancer Screening [facility] Start: 06-16-2011 SHINGRIX VACCINE (1 of 2) SHINGRIX VACCINE (1 of 2) [facility] Start: 2006 COLOGUARD (FIT-DNA) COLOGUARD (FIT-D NA) [facility] Start: 2006 Colonoscopy COLONOSCOPY [facility] Start: 2006 COLORECTAL CANCER SCREENING COLORECTAL CANCER SCREENING [facility] Start: [address] COLONOGRAPHY [facility] Start: 2006 FECAL OCCULT BLOOD FECAL OCCULT BLOO D [facility] Start: 2006 Screening for malign ant neoplasm of colon [facility] Start: 2006 SIGMOIDOSCOPY SIGMOIDOSCOPY [facility] Start: 1980 Pneumococcal Vaccine : 50+ (1 of 2 - PCV) Pneumococcal Vaccine: 50+ (1 of 2 - PCV) [facility] Start: 1980 Urine microalbumin profile [facility] Start: 06-16-1979 Anxiety Screening Anxiety Screening [facility] Start: 06-16-1979 BP Controlled (<130/80) BP Controlle d (<130/80) [facility] Start: 06-16-1979 Depression Screening Depression Scre ening [facility] Start: 06-16-1967 PNEUMOCOCCAL (1 - PCV) PNEUMOCOCCAL (1 - PCV) [facility] Start: 06-16-1967 Pneumococcal vaccination Pneumococcal Vaccine (1 of 2 - PCV) [facility] Start: 1961 COVID-19 VACCINE (#1) COVID-19 VACCI NE (#1) [facility] Blood chemistry [facility] Work Phone: CBC W Auto Different ial panel - Blood [facility] Work Phone: ECG COMPLETE ECG COMPLETE ECG Routine SOB (shortness of breath) Chest pain, mid sternal Ordered: 06/05/2024 [facility] Work Phone: Comment on above: Ordered: 06/05/2024 Lipid 1996 panel - Serum or Plasma [facility] Work Phone: Magnesium [Mass/volu me] in Serum or Plasma [facility] Work Phone: NM Heart Views W str ess and W radionuclide IV [facility] Replacement of electronic heart device, pulse generator [facility] Thyroid stimulating hormone measurement [facility] Work Phone: XR Foot - left AP an d Lateral and oblique XR FOOT GENERAL 3V AP/LAT/OBL LEFT Radiology Routine Pain in left foot 08/21/2024 2:09 PM EDT [facility] Immunization Date Immunization Notes Care Provider Alexi cleaning 01-03-2017 influenza virus vaccine, unspecified formulation [facility] Work Phone: [facility] NEGATED: Highlighted row has not occurred!06-30-2020 tetanus toxoid, reduced diphtheria toxoid, and acellular pertussis vaccine, adsorbed Cisco Pabon MD Work Phone: [facility] Comment on above: Deferred: Patient Re fused Payers Date Payer Category Payer Medicare (Managed Care) [employer] [id number] 2024 Unknown [id number] 2024 Self-pay [id number] 2017 Medicare [employer] [id number] 2017-Present [phone] [address] [place] [address] Medicare [id number] 2015 Medicaid [id number] 2015 Unknown [id number] 2015 Unknown [id number] Unknown [id number] 462 Unknown [id number] 462 Unknown [id number] 462 Unknown [id number]. 462 Unknown [id number]. 462 Unknown [id number] [id number]. 462 Unknown [id number] [id number]. 462 Unknown [id number] 462 Unknown [id number] 462 Unknown [id number] 462 Unknown [id number] 462 Unknown [id number] 462 Social History Date Type Detail Facility Start: 12-14-2021 Tobacco smoking stat [facility] Unknown if ever smoked [facility] Work Phone: Start: 10-10-2017 None [facility] Start: 10-11-2017 Cigarettes [facility] Start: 1960 Sex Assigned At Male [facility] Start: 03-19-1978 End: 03-05-2024 Tobacco smoking status FLIS Smokes tobacco daily [facility] Start: 03-19-1978 History of tobacco use Cigarette Smo ker [facility] Start: 08-15-2022 End: 06-05-2024 Cigarettes smoked current (pack per day) - Reported 0.5 [facility] Start: 08-15-2022 End: 03-05-2024 Tobacco use and exposure Smokeless tobacco non-user [facility] Start: 08-15-2022 End: 08-21-2024 Alcohol intake Current non-drinker of alcohol (finding) [facility] Start: 12-09-2013 Alcohol Comment Quit year ago [facility] Start: 1960 Sex Assigned At Not on file [facility] Start: 12-01-2020 End: 06-05-2024 Tobacco use panel [facility] National Score (1-10 0), lower number is lower risk Not on file [facility] Start: 07-11-2024 Sex Male (finding) [facility] Medical Equipment Procedure Code Equipment Code Equipment Origin al Text Equipment Identifier Dates Grayson Bn Smplx Hv Gentamicin Fd - [id number] Start: 07-28-2014 Comment on above: Description: Simplex HV w/ Gentamycin Ins Tib 6 11mm K n X3 Ps Trthln - [id number] Start: 07-28-2014 Comment on above: Description: Tibial Bearing INsert-PS Comp Pat 11mm 38 mm Asym Trthln - [id number] Start: 07-28-2014 Comment on above: Description: Asymmet aiyana Patella Baseplt Tib Trth ln 6 Prim - [id number] Start: 07-28-2014 Comment on above: Description: Primary Tibial baseplate Comp Fem 6 Lt Kn Ps Grayson Trthln - [id number] Start: 07-28-2014 Comment on above: Description: Posteri or Stabilized Femoral Functional Status Date Assessment Result Facility 07-31-2014 Are you deaf, or do you have serious difficulty hearing No 07/31/2014 1:42 PM Cheryle MurryRn)(Hist), RN No [facility] 07-31-2014 Are you blind, or do you have serious difficulty seeing, even when wearing glasses No 07/31/2014 1:42 PM Cheryle MurryRn)(Hist), RN No [facility] 07-31-2014 Do you have serious difficulty walking or climbing stairs Yes 07/31/2014 1:42 PM Cheryle MurryRn)(Hist), RN Yes [facility] 07-31-2014 Do you have difficul ty dressing or bathing Yes 07/31/2014 1:42 PM Cheryle MurryRn)(Hist), RN Yes [facility] 07-31-2014 Because of a physica l, mental, or emotional condition, do you have difficulty doing errands alone such as visiting a physician's office or shopping Yes 07/31/2014 1:42 PM Cheryle Murry)(Hist), RN Yes [facility] Mental Status Date Assessment Result Facility 07-31-2014 Because of a physica l, mental, or emotional condition, do you have serious difficulty concentrating, remembering, or making decisions No 07/31/2014 1:42 PM EDT Cheryle Ann (Rn)(Hist), RN No [facility] Clinical Notes 12-09-2013 to 08-21-2024 Becca Wei RN - 08/21/2024 3:19 PM EDTThanselJolynn glez - 08/21/2024 3:07 PM EDTBecca Wei RN - 08/21/2024 2:53 PM EDTPatient BlanquitaJeanine AlmanzarDwight - 08/21/2024 2:10 PM EDT Note Date & Type Note Facility 08-21-2024 Note HNO ID: [id number] Author: BECCA WEI RN Service: ? Author Type: Registered Nurse Type: Progress Notes Filed: 08/21/2024 15:19 Note Text: Per Milton Spivey was provided with [employer], size 11-11.5 Mens, and instructed/educated in its application, wear, and care. All questions were answered, and patient was able to demonstrate competence with the necessary skills to utilize the above equipment. Becca Wei RN [facility] 08-21-2024 History of Present illness Narrative Per Milton Spivey was provided with [employer], size 11-11.5 Mens, and instructed/educated in its application, wear, and care. All questions were answered, and patient was able to demonstrate competence with the necessary skills to utilize the above equipment. Becca Wei RN Initial Podiatric Office Visit: Chief Complaint: This 64 year old male who presents with chief complaint:left heel pain. HPI Patient presents to clinic for evaluation of left foot Complains of pain to the left heel. Has been present for a few weeks. Finds that the pain is more intense the longer he is on his foot. Currently managing with switching shoes but nothing helps Has taken tylenol but nothing helps Also has pain to the top of his right foot Was supposed to have surgery in 2011. Did not have surgery in 2012 as his . PAIN EVALUATION 08/21/2024 1456 Pain Level: 7 Pain Location: Foot-Left Description: Aching;Sharp Duration Units: Weeks Frequency: Intermittent Intervention/Comfort measure: Relaxation;Reposition Hemoglobin A1C (%) Date Value 06/23/2024 5.2 PCP: Cisco Pabon MD PAST MEDICAL HISTORY Diagnosis Date CAD (coronary artery disease) Mild, Nonobstructive- Dr. Yoon Depression EPISODIC Hypercholesterolemia Hypertension Myocardial infarction (HCC) 2007 Overweight (BMI 25.0-29.9) TIA 2007 Tobacco use disorder Current Outpatient Medications Medication Sig lisinopril (ZESTRIL) 5 mg tablet Take 5 mg by mouth once daily. rosuvastatin (CRESTOR) 10 mg tablet Take 1 tablet by mouth daily at bedtime. multivit-minerals/FA/lycopene (ONE-A-DAY MEN'S ORAL) Take by mouth twice daily. clopidogrel (PLAVIX) 75 mg tablet Take 1 tablet by mouth once daily. cilostazol (PLETAL) 50 mg tablet Take 1 tablet by mouth every 12 hours. metoprolol succinate ER (TOPROL XL) 50 mg 24 hr tablet Take 1 tablet by mouth once daily. (Patient not taking: Reported on 08/21/2024) No current facility-administered medications for this visit. ALLERGIES Allergen Reactions Aspirin Rash Demerol [Meperidine* Other: See Comments Violence Lipitor [Atorvastat* Vomiting Penicillins Rash Pravastatin Vomiting PAST SURGICAL HISTORY Procedure Laterality Date CARDIAC CATH 02/14/2007 Mild, non-obsructive CAD CARDIAC CATH 06/2018 normal coronary arteries HERNIA REPAIR HX Stomach, 5 x in groin KNEE LEFT OP SURGERY X 6 FAMILY HISTORY Problem Relation Age of Onset Heart Failure Mother COPD Father Heart Failure Father Heart Failure Sister Lung Cancer Sister Heart Failure Sister Stroke Sister Diabetes Sister Diabetes Sister Heart Brother 63 yearsold No Known Problems Son No Known Problems Daughter Social History Tobacco Use Smoking status: Every Day Current packs/day: 0.50 Average packs/day: 0.5 packs/day for 46.4 years (23.2 ttl pk-yrs) Types: Cigarettes Start date: 03/19/1978 Smokeless tobacco: Never Vaping Use Vaping status: Never Used Substance Use Topics Alcohol use: No Comment: Quit year ago Drug use: No REVIEW OF SYSTEMS GENERAL: Negative for Malaise, significant weight loss, fever RESPIRATORY: Negative for cough, wheezing and shortness of breath CARDIOVASCULAR: Negative for chest pain, leg swelling and palpitations GI: Negative for abdominal discomfort, blood in stools or black stools and change in bowel habits : Negative for dysuria, frequency and incontinence MUSCULOSKELETAL: Negative for joint pain or swelling, back pain, and muscle pain. SKIN: Negative for lesions, rash, and itching. HEMATOLOGY/LYMPHOLOGY Negative for prolonged bleeding, bruising easily, and swollen nodes. ENDOCRINE: Negative for cold or heat intolerance, polyuria, polydipsia and goiter. NEURO: negative Physical Exam: Constitutional: Pt is a well developed 64 year old male who is alert, oriented and cooperative Eyes: Following during examination. No redness or drainage. Respiratory: RR normal and nonlabored. Even breathing. No evidence of distress or shortness of breath. Psychology: Patient is engaged during conversation. Normal affect and mood. Does not appear depressed or anxious during encounter. Vascular: Dorsalis pedis and posterior tibial pulses palpable as b/l Capillary Fill time < 5 seconds to digits 1-5 b/l Skin temperature warm to warm proximal to distal b/l Hair growth present to digits Neurological: intact light touch/epicritic sensation - tinel b/l intact protective sensation no significant neurological deficits Dermatological: Nails 1-5 b/l appear normal. Webspaces clean and dry 1-4 b/l. Skin appears well hydrated and supple. good color, texture, turgor. No open lesions present. No callosities present. Musculoskeletal/Orthopaedic: Patient has pain to palpation of left plantar heel Foot type is neutral structurally AJ ROM is full with knee extended and flexed 1st MPJ is full when loaded and no pain or crepitus are noted with ROM. MTJ, STJ are full and free of pain and crepitus. +5/5 muscle strength dorsiflexion, plantarflexion, inversion, eversion b/l Dorsal spurring is noted to right first metatarsal cun joint Radiographs: 3 views left foot ordered August 21, 2024: I have personally reviewed and interpreted these XR myself: no acute fracture ASSESSMENT: (M72.2) Plantar fasciitis (primary encounter diagnosis) (M19.071) Arthritis of right midfoot PLAN: 1. Initial Office Visit - A thorough review of the patient's PMH and Podiatric physical exam was completed. 2. Patient advised to perform stretching excercises, icing, and to make appropriate shoe gear changes to include wearing athletic-type shoes with supportive insoles. No barefoot walking. Patient also given written instructions on how to correctly perform the stretching of the achilles tendon/calf stretches, and the heel spur/plantar fasciitis regimen. 3. Patient advised to seek wide, deep toe box, accomodative, comfortable, lace-up, athletic/walking type footwear that includes motion control characteristics for support and cushion that need to be worn at all times when weight-bearing. Shoes should be tested for torsional stability as well as proper bending at the toebox rather than at the midfoot. Good quality shoes such as, but not limited to, New Balance or Asics are examples of more proper foot gear. 4. Patient recommended to get powerstep insoles for proper support of the arch in order to alleviate the tension and stress on the plantar fascia associated with normal daily walking. Patient advised that these modalities used in conjunction with stretching and icing are able to alleviate most symptoms from this condition. 5. Discussed injection vs oral steroid. If pain fails to improve, he may consider 6. Discussed spurring of right midfoot. Consider altering the laces in shoes to avoid direct pressure to top of right midfoot. Jolynn Gomez DPM Podiatry [address] [facility] [address] Dept: [phone] Dept Patient presents with: Left Foot - New, Pain AMB ROOMING INTAKE FLOWSHEET DATA Pain Pain Level: 7 Pain Location: Foot-Left Description: Aching, Sharp Duration Units: Weeks Frequency: Intermittent Intervention/Comfort measure: Relaxation, Reposition Patient presents for left heel pain that radiates into the arch that has been ongoing for the last few weeks. Hurts worse when walking and putting pressure on it. Also states that he has some pain to the top of the right foot. Has been ongoing for many years and was supposed to have surgery on it back in 2011. XR prior to appointment documented in this encounter [facility] 08-21-2024 Instructions Jolynn Gomez - 08/21/2024 3:13 PM EDT Images from the original note were not included. Powerstep Original Full length. Can purchase at [employer] and boots,shoes and more here in [place] in [place] or [place]. Also can find in [employer] in [facility]. Powersteps can also be purchased online, starting around $45.00 If you have a metatarsal or dancer pad for your feet apply the pad directly to the insole so you can interchange between your shoes. Find a shoe with a removable insole and take this out and replace with your powerstep insole. Always bring powersteps with you when shopping for shoes so that you can make sure that everything fits well together What is Plantar Fasciitis? Plantar fasciitis is the most common cause of heel pain. The pain is caused by inflammation of the plantar fascia. If you strain your plantar fascia, it becomes weak, swollen and irritated (inflamed). The resulting pain may be isolated in the heel or may appear at different points on the bottom of the foot, from time to time; it may occur in one foot or both. Some think that plantar fasciitis pain is caused by irritation of nerves from tissue swelling or inflammation, but it is debatable. Plantar fasciitis is common in middle-aged people; it also occurs in younger people who are on their feet a lot, such as athletes or soldiers. The plantar fascia is a strong band of connective tissue that extends from the base of the toes, along the bottom of the foot, to the bottom of the heel (calcaneous bone); it acts like a bowstring to maintain the arch of the foot. What are heel spurs? The inflammatory reaction of the heel bone may produce spike-like projections of new bone, called heel spurs. The spurs sometimes show on X-rays. They neither cause the initial pain nor do they cause the initial problem. However, later, having to walk on spurs may cause sharp pain. What causes plantar fasciitis? Plantar fasciitis is caused by straining the ligament that supports your arch. Repeated strain can cause tiny tears in the ligament. These lead to pain and swelling. During walking, the plantar fascia experiences tension up to twice the body weight with each step. While this is normal, those who spend much time on their feet, such as nurses, forestry and wildlife manager/waiters, and mail carriers, often experience plantar fasciitis. Athletes involved in tennis or other racquet sports, race walking, jogging or running also show a higher incidence of plantar fasciitis than do those participating in other activities. Thus, it's clear that plantar fasciitis is predominantly an overuse injury. In fact, any activity that results in prolonged tension and stress on the plantar fascia may cause plantar fasciitis. It is possible that changes in footwear may play a role in causing plantar fasciitis, no matter what activity is occurring. Those who are overweight are prone to plantar fasciitis. This is true even for sedentary people who get little physical activity. Abnormalities of the foot and ankle joints may predispose some individuals to development of plantar fasciitis (specifically, over pronation of the subtalar joint). Contributing Factors * Flat feet * Toe running, hill running * Sudden weight increase * High-arched, rigid feet * Soft terrain, e.g. running on sand * Obesity * Pronated feet (rolled inward) * Sudden increase in activity * Family tendency * Poor shoe support * Worn out or poorly fitted shoes * Increasing age * Walking, standing or running for long periods of time, especially on hard surfaces. How is the Injury Treated? Rest Your Feet: Limit, or if possible, stop activities that are causing your heel pain. Try to avoid running or walking on hard surfaces, such as concrete. Use pain as your guide. If your foot is too painful, rest it. Ice: Ice the sore area for 30 to 60 minutes, several times a day, to reduce inflammation and relieve pain. Apply a plastic bag of crushed ice (or a bag of frozen peas) over a towel. Ice the sore area for 15 minutes after activity/exercise. Application of heat is not generally recommended, as heat expands the bone and connective tissue, perhaps exerting greater pressure on nerves and thereby increasing pain. If heat is used, follow it with ice. Medication: If your condition developed recently, anti-inflammatory/analgesic medication, combined with heel pads (see below) may be all that is necessary to relieve pain and to reduce inflammation. If no pain relief has occurred after 2-3 weeks, however, your doctor may inject either cortisone or local anesthetic directly into the tender area. Exercises: Do simple exercises, such as calf stretches and towel stretches (see below) several times a day, especially when you first get up in the morning. These can help your ligament become more flexible and strengthen the muscles that support your arch. Shoes: Poorly fitting shoes can cause plantar fasciitis. The best type of shoe to wear is a good walking or running shoe with good shock absorption and excellent arch support. You should choose the one that fits the best. Ajo with your athletic shoes to find a pair that is comfortable and causes fewer symptoms. Put your shoes on as soon as you get out of bed; going barefoot or wearing slippers may make your pain worse. Good brands include (but are not limited to): New Balance, Asics, Saucony, SAS and Merrel s. Taping: Your doctor may tape your foot to maintain the arch. This takes some of the tension off the plantar fascia. Weight Loss: If your weight is putting extra stress on your feet, your doctor may encourage you to try a weight-loss program. Orthotics: An orthotic insole is a molded piece of rubber, plastic, or other material that you insert into your shoe. It corrects the alignment of your foot and cushions your foot from excessive pounding. These may be prescription or non-prescription. Prescription orthotics are custom-fitted and may fit better and control pain better, but are very expensive. Night Splints: A night splint holds the foot with the toes pointed up and the ankle at a 90-degree angle. This position applies a constant, gentle stretch to the plantar fascia. Corticosteroid Shots: Steroids may be injected into the tender area to reduce inflammation. REHAB Exercises to stretch the plantar fascia, the calf muscles, and the Achilles tendon. Tightness of the muscles of the calves may contribute to plantar fasciitis, so stretching the calf muscles is important to rehabilitation, as is stretching of the plantar fascia itself. Plantar fascial stretches Assisted Dorsiflexion/Plantar Fascia Stretch: Sit on the floor or ground, barefoot, with both legs outstretched. Use a towel or elastic band and wrap it around the ball (and not the toes) of the affected foot. Use the towel or elastic band to provide resistance to upward movement of the forefoot. Pull foot upward (toward your body) with the help of the elastic band or towel, and then return to the starting position. Ten repetitions are recommended. Perform the sequence at least three times a day. Alternate Plantar Fascia Stretch: Sit upright in a chair, barefoot. Place the ankle of the affected foot on your opposite knee. Using the same hand as the affected foot, reach across and grab the toes. Flex the ankle toward and pull the toes toward the maier. To test the stretch, place the thumb of your hand on the bottom of the foot. You should be able to feel the cord-like plantar fascia, running the length of the foot. Hold the stretch for a count of 10, then relax. Repeat 10 times. Do the sequence at least three times a day. Achilles/Calf Stretches Strengthening the muscles of the calves may contribute to successful rehabilitation of plantar fasciitis, as well as prevent reoccurrence. The exercises below will help strengthen the calf muscles. Calf and Achilles Tendon Stretch (Gastrocnemius Stretch): Face a wall, standing an arm's length away. Place one foot back. Place both hands on the wall. Bend the elbows and knee of your forward leg, keeping the heel of the backward foot on the floor and keeping your body straight (aligned), until your forehead nearly touches the wall, or until significant stretch is felt in the muscles of the calf of the backward leg. Hold this position for 10 to 15 seconds. Extend elbows (straighten your arms and stand upright again) and maintain this position for 10 seconds. Repeat this cycle 15 to 20 times. Switch legs and repeat the exercise. documented in this encounter [facility] 08-21-2024 Note HNO ID: [id number] Author: JOLYNN GOMEZ, ? Service: ? Author Type: Physician Type: Progress Notes Filed: 08/21/2024 15:15 Note Text: Initial Podiatric Office Visit: Chief Complaint: This 64 year old male who presents with chief complaint:left heel pain. HPI Patient presents to clinic for evaluation of left foot Complains of pain to the left heel. Has been present for a few weeks. Finds that the pain is more intense the longer he is on his foot. Currently managing with switching shoes but nothing helps Has taken tylenol but nothing helps Also has pain to the top of his right foot Was supposed to have surgery in 2012. Did not have surgery in 2012 as his . PAIN EVALUATION 08/21/2024 1456 Pain Level: 7 Pain Location: Foot-Left Description: Aching;Sharp Duration Units: Weeks Frequency: Intermittent Intervention/Comfort measure: Relaxation;Reposition Hemoglobin A1C (%) Date Value 06/23/2024 5.2 PCP: Cisco Pabon MD PAST MEDICAL HISTORY Diagnosis Date CAD (coronary artery disease) Mild, Nonobstructive- Dr. Yoon Depression EPISODIC Hypercholesterolemia Hypertension Myocardial infarction (HCC) 2007 Overweight (BMI 25.0-29.9) TIA 2007 Tobacco use disorder Current Outpatient Medications Medication Sig lisinopril (ZESTRIL) 5 mg tablet Take 5 mg by mouth once daily. rosuvastatin (CRESTOR) 10 mg tablet Take 1 tablet by mouth daily at bedtime. multivit-minerals/FA/lycopene (ONE-A-DAY MEN'S ORAL) Take by mouth twice daily. clopidogrel (PLAVIX) 75 mg tablet Take 1 tablet by mouth once daily. cilostazol (PLETAL) 50 mg tablet Take 1 tablet by mouth every 12 hours. metoprolol succinate ER (TOPROL XL) 50 mg 24 hr tablet Take 1 tablet by mouth once daily. (Patient not taking: Reported on 08/21/2024) No current facility-administered medications for this visit. ALLERGIES Allergen Reactions Aspirin Rash Demerol [Meperidine* Other: See Comments Violence Lipitor [Atorvastat* Vomiting Penicillins Rash Pravastatin Vomiting PAST SURGICAL HISTORY Procedure Laterality Date CARDIAC CATH 02/14/2007 Mild, non-obsructive CAD CARDIAC CATH 06/2018 normal coronary arteries HERNIA REPAIR HX Stomach, 5 x in groin KNEE LEFT OP SURGERY X 6 FAMILY HISTORY Problem Relation Age of Onset Heart Failure Mother COPD Father Heart Failure Father Heart Failure Sister Lung Cancer Sister Heart Failure Sister Stroke Sister Diabetes Sister Diabetes Sister Heart Brother 63 yearsold No Known Problems Son No Known Problems Daughter Social History Tobacco Use Smoking status: Every Day Current packs/day: 0.50 Average packs/day: 0.5 packs/day for 46.4 years (23.2 ttl pk-yrs) Types: Cigarettes Start date: 03/19/1978 Smokeless tobacco: Never Vaping Use Vaping status: Never Used Substance Use Topics Alcohol use: No Comment: Quit year ago Drug use: No REVIEW OF SYSTEMS GENERAL: Negative for Malaise, significant weight loss, fever RESPIRATORY: Negative for cough, wheezing and shortness of breath CARDIOVASCULAR: Negative for chest pain, leg swelling and palpitations GI: Negative for abdominal discomfort, blood in stools or black stools and change in bowel habits : Negative for dysuria, frequency and incontinence MUSCULOSKELETAL: Negative for joint pain or swelling, back pain, and muscle pain. SKIN: Negative for lesions, rash, and itching. HEMATOLOGY/LYMPHOLOGY Negative for prolonged bleeding, bruising easily, and swollen nodes. ENDOCRINE: Negative for cold or heat intolerance, polyuria, polydipsia and goiter. NEURO: negative Physical Exam: Constitutional: Pt is a well developed 64 year old male who is alert, oriented and cooperative Eyes: Following during examination. No redness or drainage. Respiratory: RR normal and nonlabored. Even breathing. No evidence of distress or shortness of breath. Psychology: Patient is engaged during conversation. Normal affect and mood. Does not appear depressed or anxious during encounter. Vascular: Dorsalis pedis and posterior tibial pulses palpable as b/l Capillary Fill time < 5 seconds to digits 1-5 b/l Skin temperature warm to warm proximal to distal b/l Hair growth present to digits Neurological: intact light touch/epicritic sensation - tinel b/l intact protective sensation no significant neurological deficits Dermatological: Nails 1-5 b/l appear normal. Webspaces clean and dry 1-4 b/l. Skin appears well hydrated and supple. good color, texture, turgor. No open lesions present. No callosities present. Musculoskeletal/Orthopaedic: Patient has pain to palpation of left plantar heel Foot type is neutral structurally AJ ROM is full with knee extended and flexed 1st MPJ is full when loaded and no pain or crepitus are noted with ROM. MTJ, STJ are full and free of pain and crepitus. +5/5 muscle strength dorsiflexion, plantarflexion, inversi (more content not included)... [facility] 08-21-2024 Note HNO ID: [id number] Author: BECCA WEI RN Service: ? Author Type: Registered Nurse Type: Progress Notes Filed: 08/21/2024 15:15 Note Text: Patient presents with: Left Foot - New, Pain AMB ROOMING INTAKE FLOWSHEET DATA Pain Pain Level: 7 Pain Location: Foot-Left Description: Aching, Sharp Duration Units: Weeks Frequency: Intermittent Intervention/Comfort measure: Relaxation, Reposition Patient presents for left heel pain that radiates into the arch that has been ongoing for the last few weeks. Hurts worse when walking and putting pressure on it. Also states that he has some pain to the top of the right foot. Has been ongoing for many years and was supposed to have surgery on it back in 2011. XR prior to appointment [facility] 08-21-2024 History of Present illness Narrative Radiology Service Progress Note PATIENT NAME: Milton Pappas DATE OF SERVICE: August 21, 2024 TIME: 2:08 PM PATIENT IDENTITY VERIFICATION COMPLETED USING TWO (2) IDENTIFIERS: Name and Date of confirmed by patient verbally. FALL SCREENING: Has the patient had 2 falls in the last year or 1 fall with injury or currently using an Ambulatory Assistive Device (Walker, Cane, Wheelchair, Crutches, etc.)? No PATIENT GENDER DATA: Assigned male at PATIENT RELEVANT IMPLANT DATA REVIEWED: Not Applicable PATIENT PRESENTS WITH AN IMPLANTABLE OR ATTACHED SUPERVISOR INTELLIGENCE ANALYST: No RADIOLOGY DEPARTMENT: General X-ray: Exam(s) Completed: Lower Extremity X-Ray(s): Foot, Left PERIPHERAL IV DATA: Not applicable SIGNED BY: Dwight Hood August 21, 2024 2:08 PM documented in this encounter [facility] 08-21-2024 Note HNO ID: [id number] Author: JEANINE ALMANZAR Tech Service: ? Author Type: Technologist Type: Progress Notes Filed: 08/21/2024 14:09 Note Text: Radiology Service Progress Note PATIENT NAME: Milton Pappas DATE OF SERVICE: August 21, 2024 TIME: 2:08 PM PATIENT IDENTITY VERIFICATION COMPLETED USING TWO (2) IDENTIFIERS: Name and Date of confirmed by patient verbally. FALL SCREENING: Has the patient had 2 falls in the last year or 1 fall with injury or currently using an Ambulatory Assistive Device (Walker, Cane, Wheelchair, Crutches, etc.)? No PATIENT GENDER DATA: Assigned male at PATIENT RELEVANT IMPLANT DATA REVIEWED: Not Applicable PATIENT PRESENTS WITH AN IMPLANTABLE OR ATTACHED SUPERVISOR INTELLIGENCE ANALYST: No RADIOLOGY DEPARTMENT: General X-ray: Exam(s) Completed: Lower Extremity X-Ray(s): Foot, Left PERIPHERAL IV DATA: Not applicable SIGNED BY: Dwight Hood August 21, 2024 2:08 PM [facility] 06-24-2024 Telephone encounter Note Pt notified and verbalized understanding Felisa Luis MA [facility] 06-24-2024 Miscellaneous Notes Pt notified and verbalized understanding Felisa Luis MA Please let patient know his labs are stable. documented in this encounter [facility] 06-24-2024 Telephone encounter Note Please let patient know his labs are stable. [facility] Work Phone: 06-20-2024 Note HNO ID: [id number] Author: LUCAS GRAHAM APRN.CNP Service: ? Author Type: Nurse Practitioner Type: Progress Notes Filed: 06/20/2024 10:43 Note Text: Chief Complaint Patient presents with: Physical HPI Milton Pappas is a 64 year old male who presents here today for Above Complaints.. Patient presents for annual physical. Patient reports he continues to have leg pain. Patient saw Dr. Melchor last year as well as vascular but he never followed up as directed. Past medical history, appointments, medications, allergies reviewed. Previous Medical History PAST MEDICAL HISTORY Diagnosis Date CAD (coronary artery disease) Mild, Nonobstructive- Dr. Yoon Depression EPISODIC Hypercholesterolemia Hypertension Myocardial infarction (HCC) 2008 Overweight (BMI 25.0-29.9) TIA 2008 Tobacco use disorder Previous Surgical History PAST SURGICAL HISTORY Procedure Laterality Date CARDIAC CATH 02/14/2007 Mild, non-obsructive CAD CARDIAC CATH 06/2018 normal coronary arteries HERNIA REPAIR HX Stomach, 5 x in groin KNEE LEFT OP SURGERY X 6 Family History FAMILY HISTORY Problem Relation Age of Onset Heart Failure Mother COPD Father Heart Failure Father Heart Failure Sister Lung Cancer Sister Heart Failure Sister Stroke Sister Diabetes Sister Diabetes Sister Heart Brother 63 yearsold No Known Problems Son No Known Problems Daughter Patient Allergies ALLERGIES Allergen Reactions Aspirin Rash Demerol [Meperidine* Other: See Comments Violence Lipitor [Atorvastat* Vomiting Penicillins Rash Pravastatin Vomiting Current Medications Current Outpatient Medications on File Prior to Visit Medication Sig cilostazol (PLETAL) 50 mg tablet Take 1 tablet by mouth every 12 hours. lisinopril (ZESTRIL) 5 mg tablet Take 5 mg by mouth once daily. rosuvastatin (CRESTOR) 10 mg tablet Take 1 tablet by mouth daily at bedtime. multivit-minerals/FA/lycopene (ONE-A-DAY MEN'S ORAL) Take by mouth twice daily. metoprolol succinate ER (TOPROL XL) 50 mg 24 hr tablet Take 1 tablet by mouth once daily. (Patient taking differently: Take 25 mg by mouth once daily.) clopidogrel (PLAVIX) 75 mg tablet Take 1 tablet by mouth once daily. No current facility-administered medications on file prior to visit. Social History Social History Tobacco Use Smoking status: Every Day Current packs/day: 0.50 Average packs/day: 0.5 packs/day for 46.3 years (23.1 ttl pk-yrs) Types: Cigarettes Start date: 03/19/1978 Smokeless tobacco: Never Vaping Use Vaping status: Never Used Substance Use Topics Alcohol use: No Comment: Quit year ago Drug use: No Review of Symptoms REVIEW OF SYSTEMS SEE HPI EXAM: BP 160/72 Pulse 61 Wt 99 kg (218 lb 4.1 oz) BMI 29.19 kg/m? General Appearance: Well appearing, alert, in no acute distress, well-hydrated, well nourished. Skin: Skin color, texture, turgor normal, no suspicious rashes or lesions. Lungs: Lungs clear to auscultation. No wheezing, rhonchi, rales.. Heart: RRR without murmur, gallop, or rubs. No ectopy. Abdomen: Normal abdominal exam, Abdomen soft, non-tender. Bowel sounds normal. No masses, organomegaly. Musculoskeletal: No joint swelling, deformity, or tenderness. Peripheral Pulses: Normal. Neurologic: Gait normal. Reflexes normal and symmetric. Sensation grossly intact.. Health Maintenance List Depression Screening Never done Anxiety Screening Never done BP Controlled (<130/80) Never done DTaP,Tdap,Td Vaccine(1 - Tdap) Never done Pneumococcal Vaccine: 50+(1 of 2 - PCV) Never done Colorectal Cancer Screening Never done Lung Cancer Screening Never done Shingrix Vaccine(1 of 2) Never done LDL Cholesterol due on 12/02/2021 Influenza Vaccine(1) due on 11/18/2023 Covid-19 Vaccine( - season) Never done Annual PCP Team Chronic Disease Visit due on 06/05/2025 Diabetes Screening due on 08/15/2025 Lipid Screening due on 12/02/2025 Prostate Cancer Screening Discussion due on 12/02/2025 RSV Vaccine(1 - 1-dose 75+ series) due on 2036 Hepatitis C Screening Completed HIV Screening Completed Data reviewed Last 5 Encounter BP Readings: Date: BP: 06/20/2024 160/72 06/05/2024 160/84 03/05/2024 124/76 08/15/2022 110/68 06/01/2021 114/84 ASSESSMENT/PLAN: 1. Coronary artery disease involving barrow heart without angina pectoris, unspecified vessel or lesion type - ICD9: 414.01, ICD10: I25.10 (primary diagnosis) -Follows with [facility] -Continue current medications 2. Hyperlipidemia, unspecified hyperlipidemia type - ICD9: 272.4, ICD10: E78.5 - Control undetermined, due for labs - Continue current medications - Counseled on healthy diet and regular exercise - Discussed need for and benefit of weight loss. BMI 29.19 kg/(m2) - LIPID PANEL, NONFASTING 3. Hypertension, essential - ICD9: 401.9, ICD10: I10 - Uncontrolled - Continue current medications - Recommend (more content not included)... [facility] 06-20-2024 History of Present illness Narrative Chief Complaint Patient presents with: Physical HPI Milton Pappas is a 64 year old male who presents here today for Above Complaints.. Patient presents for annual physical. Patient reports he continues to have leg pain. Patient saw Dr. Melchor last year as well as vascular but he never followed up as directed. Past medical history, appointments, medications, allergies reviewed. Previous Medical History PAST MEDICAL HISTORY Diagnosis Date CAD (coronary artery disease) Mild, Nonobstructive- Dr. Yoon Depression EPISODIC Hypercholesterolemia Hypertension Myocardial infarction (HCC) 2007 Overweight (BMI 25.0-29.9) TIA 2008 Tobacco use disorder Previous Surgical History PAST SURGICAL HISTORY Procedure Laterality Date CARDIAC CATH 02/14/2007 Mild, non-obsructive CAD CARDIAC CATH 06/2018 normal coronary arteries HERNIA REPAIR HX Stomach, 5 x in groin KNEE LEFT OP SURGERY X 6 Family History FAMILY HISTORY Problem Relation Age of Onset Heart Failure Mother COPD Father Heart Failure Father Heart Failure Sister Lung Cancer Sister Heart Failure Sister Stroke Sister Diabetes Sister Diabetes Sister Heart Brother 63 yearsold No Known Problems Son No Known Problems Daughter Patient Allergies ALLERGIES Allergen Reactions Aspirin Rash Demerol [Meperidine* Other: See Comments Violence Lipitor [Atorvastat* Vomiting Penicillins Rash Pravastatin Vomiting Current Medications Current Outpatient Medications on File Prior to Visit Medication Sig cilostazol (PLETAL) 50 mg tablet Take 1 tablet by mouth every 12 hours. lisinopril (ZESTRIL) 5 mg tablet Take 5 mg by mouth once daily. rosuvastatin (CRESTOR) 10 mg tablet Take 1 tablet by mouth daily at bedtime. multivit-minerals/FA/lycopene (ONE-A-DAY MEN'S ORAL) Take by mouth twice daily. metoprolol succinate ER (TOPROL XL) 50 mg 24 hr tablet Take 1 tablet by mouth once daily. (Patient taking differently: Take 25 mg by mouth once daily.) clopidogrel (PLAVIX) 75 mg tablet Take 1 tablet by mouth once daily. No current facility-administered medications on file prior to visit. Social History Social History Tobacco Use Smoking status: Every Day Current packs/day: 0.50 Average packs/day: 0.5 packs/day for 46.3 years (23.1 ttl pk-yrs) Types: Cigarettes Start date: 03/19/1978 Smokeless tobacco: Never Vaping Use Vaping status: Never Used Substance Use Topics Alcohol use: No Comment: Quit year ago Drug use: No Review of Symptoms REVIEW OF SYSTEMS SEE HPI EXAM: BP 160/72 Pulse 61 Wt 99 kg (218 lb 4.1 oz) BMI 29.19 kg/m General Appearance: Well appearing, alert, in no acute distress, well-hydrated, well nourished. Skin: Skin color, texture, turgor normal, no suspicious rashes or lesions. Lungs: Lungs clear to auscultation. No wheezing, rhonchi, rales.. Heart: RRR without murmur, gallop, or rubs. No ectopy. Abdomen: Normal abdominal exam, Abdomen soft, non-tender. Bowel sounds normal. No masses, organomegaly. Musculoskeletal: No joint swelling, deformity, or tenderness. Peripheral Pulses: Normal. Neurologic: Gait normal. Reflexes normal and symmetric. Sensation grossly intact.. Health Maintenance List Depression Screening Never done Anxiety Screening Never done BP Controlled (<130/80) Never done DTaP,Tdap,Td Vaccine(1 - Tdap) Never done Pneumococcal Vaccine: 50+(1 of 2 - PCV) Never done Colorectal Cancer Screening Never done Lung Cancer Screening Never done Shingrix Vaccine(1 of 2) Never done LDL Cholesterol due on 12/02/2021 Influenza Vaccine(1) due on 11/18/2023 Covid-19 Vaccine(1 - 2023- season) Never done Annual PCP Team Chronic Disease Visit due on 06/05/2025 Diabetes Screening due on 08/15/2025 Lipid Screening due on 12/02/2025 Prostate Cancer Screening Discussion due on 12/02/2025 RSV Vaccine(1 - 1-dose 75+ series) due on 2036 Hepatitis C Screening Completed HIV Screening Completed Data reviewed Last 5 Encounter BP Readings: Date: BP: 06/20/2024 160/72 06/05/2024 160/84 03/05/2024 124/76 08/15/2022 110/68 06/01/2021 114/84 ASSESSMENT/PLAN: 1. Coronary artery disease involving barrow heart without angina pectoris, unspecified vessel or lesion type - ICD9: 414.01, ICD10: I25.10 (primary diagnosis) -Follows with [facility] -Continue current medications 2. Hyperlipidemia, unspecified hyperlipidemia type - ICD9: 272.4, ICD10: E78.5 - Control undetermined, due for labs - Continue current medications - Counseled on healthy diet and regular exercise - Discussed need for and benefit of weight loss. BMI 29.19 kg/(m^2) - LIPID PANEL, NONFASTING 3. Hypertension, essential - ICD9: 401.9, ICD10: I10 - Uncontrolled - Continue current medications - Recommend home blood pressure monitoring, to bring results to next visit - Encouraged sodium restriction, DASH or Mediterranean diet - Recommend regular aerobic exercise - Discussed need for and benefit of weight loss. BMI 29.19 kg/(m^2) - [facility] notified of BP as they manage his medications 4. Adult wellness visit - ICD9: V70.0, ICD10: Z00.00 - Counseled on healthy diet and regular exercise - Discussed need for and benefit of weight loss. BMI 29.19 kg/(m^2) - Colorectal cancer screening - declined. Risks discussed. - Risks/benefits of prostate cancer screening discussed. screening PSA ordered - Lung cancer screening - declined. Risks discussed. - Smoking cessation encouraged; discussed health risks and quitting strategies. Patient is not ready to quit - Follow up for annual exam in one year - COMPLETE BLOOD COUNT AND DIFFERENTIAL - COMPREHENSIVE METABOLIC PANEL 7. Screening for diabetes mellitus - ICD9: V77.1, ICD10: Z13.1 - HEMOGLOBIN A1C 8. Screening for prostate cancer - ICD9: V76.44, ICD10: Z12.5 - Risks/benefits of prostate cancer screening discussed. screening PSA ordered - PSA/PROSTATE SPECIFIC ANTIGEN SCREENING 9. Bilateral leg pain - ICD9: 729.5, ICD10: M79.604, M79.605 -Patient advised to follow up with Dr. Melchor for further evaluation of lumbar DDD 10. Bilateral leg weakness - ICD9: 729.89, ICD10: R29.898 -Patient advised to follow up with Dr. Melchor for further evaluation of lumbar DDD 11. Bilateral numbness and tingling of arms and legs - ICD9: 782.0, ICD10: R20.0, R20.2 -Patient advised to follow up with Dr. Melchor for further evaluation of lumbar DDD 12. Coronary artery disease involving barrow coronary artery of barrow heart with angina pectoris - ICD9: 414.01, 413.9, ICD10: I25.119 -Follows with [facility] -Continue current medications 13. Ventricular tachycardia by electrocardiography (HCC) - ICD9: 427.1, ICD10: I47.20 -Follows with [facility] -Continue current medications Lucas Graham APRN.CNP documented in this encounter [facility] 06-06-2024 Telephone encounter Note Would recommend returning to ortho or if he wants a referral for a second opinion? [facility] Work Phone: 06-06-2024 Miscellaneous Notes Would recommend returning to ortho or if he wants a referral for a second opinion? Pt notified and states that he saw [facility] for this last year he believes and he states he did physical therapy which did not help Please advise Felisa Luis MA Please let patient know his CXR is negative and his lumbar xr shows mild degenerative changes, no acute findings. Would recommend follow up with orthopedics for the leg pain. Does he see an orthopedist or does he need a new referral? documented in this encounter [facility] 06-06-2024 Telephone encounter Note Pt notified and states that he saw [facility] for this last year he believes and he states he did physical therapy which did not help Please advise Felisa Luis MA [facility] 06-05-2024 Telephone encounter Note Please let patient know his CXR is negative and his lumbar xr shows mild degenerative changes, no acute findings. Would recommend follow up with orthopedics for the leg pain. Does he see an orthopedist or does he need a new referral? [facility] 06-05-2024 History of Present illness Narrative Radiology Service Progress Note PATIENT NAME: Milton Pappas DATE OF SERVICE: June 05, 2024 TIME: 10:36 AM PATIENT IDENTITY VERIFICATION COMPLETED USING TWO (2) IDENTIFIERS: Name and Date of confirmed by patient verbally. FALL SCREENING: Has the patient had 2 falls in the last year or 1 fall with injury or currently using an Ambulatory Assistive Device (Walker, Cane, Wheelchair, Crutches, etc.)? No PATIENT GENDER DATA: Assigned male at PATIENT RELEVANT IMPLANT DATA REVIEWED: Not Applicable PATIENT PRESENTS WITH AN IMPLANTABLE OR ATTACHED SUPERVISOR INTELLIGENCE ANALYST: No RADIOLOGY DEPARTMENT: General X-ray: Exam(s) Completed: Chest X-Ray Spine X-Ray(s): Lumbar AP / LAT / L5-S1 / OBL PERIPHERAL IV DATA: Not applicable SIGNED BY: RT David(R) June 05, 2024 10:36 AM documented in this encounter [facility] 06-05-2024 Note HNO ID: [id number] Author: SNOW MYERS RT(R) Service: Radiology Author Type: Technologist Type: Progress Notes Filed: 06/05/2024 10:47 Note Text: Radiology Service Progress Note PATIENT NAME: Milton Pappas DATE OF SERVICE: June 05, 2024 TIME: 10:36 AM PATIENT IDENTITY VERIFICATION COMPLETED USING TWO (2) IDENTIFIERS: Name and Date of confirmed by patient verbally. FALL SCREENING: Has the patient had 2 falls in the last year or 1 fall with injury or currently using an Ambulatory Assistive Device (Walker, Cane, Wheelchair, Crutches, etc.)? No PATIENT GENDER DATA: Assigned male at PATIENT RELEVANT IMPLANT DATA REVIEWED: Not Applicable PATIENT PRESENTS WITH AN IMPLANTABLE OR ATTACHED SUPERVISOR INTELLIGENCE ANALYST: No RADIOLOGY DEPARTMENT: General X-ray: Exam(s) Completed: Chest X-Ray Spine X-Ray(s): Lumbar AP / LAT / L5-S1 / OBL PERIPHERAL IV DATA: Not applicable SIGNED BY: RT David(R) June 05, 2024 10:36 AM [facility] 06-05-2024 Note HNO ID: [id number] Author: LUCAS GRAHAM APRN.GROUP BILLING COORDINATOR Service: ? Author Type: Nurse Practitioner Type: Progress Notes Filed: 06/05/2024 10:36 Note Text: Chief Complaint Patient presents with: Shortness of Breath: Woke up in the middle of the night and couldn't breathe feels like before when had PE bilateral leg pain: Legs ache like tooth ache for about 4 days. Left knee was swollen so bad couldn't get pants over it. ADRI Pappas is a 63 year old male who presents here today for Above Complaints.. Patient present today for bilateral leg pain x4 days that extends up into his groin and down to his toes. Patient states he is unable to walk short distances without his legs hurting. Patient states he did fall a few days ago his knee gave out denies hitting his head. Patient states he landed on his arm when he feel. Patient states he felt like his knee twisted on him when he fell. He had his left knee replaced and ever since it has clicked. Patient denies clicking and popping in the right knee. Patient states that his left knee was swollen and painful and he was unable to pull his pants leg over his left knee. He has not noticed any redness. Patient has tried tylenol which has not helped. Patient states he also started having SOB and chest pain last night. Patient denies radiation or crushing sensation. Past medical history, appointments, medications, allergies reviewed. Previous Medical History PAST MEDICAL HISTORY Diagnosis Date CAD (coronary artery disease) Mild, Nonobstructive- Dr. Yoon Depression EPISODIC Hypercholesterolemia Hypertension Myocardial infarction (HCC) 2007 Overweight (BMI 25.0-29.9) TIA 2007 Tobacco use disorder Previous Surgical History PAST SURGICAL HISTORY Procedure Laterality Date CARDIAC CATH 02/14/2007 Mild, non-obsructive CAD CARDIAC CATH 06/2018 normal coronary arteries HERNIA REPAIR HX Stomach, 5 x in groin KNEE LEFT OP SURGERY X 6 Family History FAMILY HISTORY Problem Relation Age of Onset Heart Failure Mother COPD Father Heart Failure Father Heart Failure Sister Lung Cancer Sister Heart Failure Sister Stroke Sister Diabetes Sister Diabetes Sister Heart Brother 63 yearsold No Known Problems Son No Known Problems Daughter Patient Allergies ALLERGIES Allergen Reactions Aspirin Rash Demerol [Meperidine* Other: See Comments Violence Lipitor [Atorvastat* Vomiting Penicillins Rash Pravastatin Vomiting Current Medications Current Outpatient Medications on File Prior to Visit Medication Sig cilostazol (PLETAL) 50 mg tablet Take 1 tablet by mouth every 12 hours. lisinopril (ZESTRIL) 5 mg tablet Take 5 mg by mouth once daily. rosuvastatin (CRESTOR) 10 mg tablet Take 1 tablet by mouth daily at bedtime. clopidogrel (PLAVIX) 75 mg tablet Take 1 tablet by mouth once daily. multivit-minerals/FA/lycopene (ONE-A-DAY MEN'S ORAL) Take by mouth twice daily. metoprolol succinate ER (TOPROL XL) 50 mg 24 hr tablet Take 1 tablet by mouth once daily. (Patient taking differently: Take 25 mg by mouth once daily.) No current facility-administered medications on file prior to visit. Social History Social History Tobacco Use Smoking status: Every Day Current packs/day: 0.50 Average packs/day: 0.5 packs/day for 46.2 years (23.1 ttl pk-yrs) Types: Cigarettes Start date: 03/19/1978 Smokeless tobacco: Never Vaping Use Vaping status: Never Used Substance Use Topics Alcohol use: No Comment: Quit year ago Drug use: No Review of Symptoms REVIEW OF SYSTEMS GENERAL: Fatigue RESPIRATORY: Negative for cough, hemoptysis, wheezing, COPD, dyspnea or shortness of breath CARDIOVASCULAR: Negative for chest pain, leg swelling, hypertension, CHF or palpitations MUSCULOSKELETAL: joint pain or swelling EXAM: BP 160/84 Pulse 66 Wt 99.7 kg (219 lb 12.8 oz) SpO2 98% BMI 29.40 kg/m? General Appearance: Well appearing, alert, in no acute distress, well-hydrated, well nourished.. Lungs: Lungs clear to auscultation. No wheezing, rhonchi, rales.. Musculoskeletal: No joint swelling, deformity, or tenderness. Health Maintenance List Depression Screening Never done Anxiety Screening Never done DTaP,Tdap,Td Vaccine(1 - Tdap) Never done Pneumococcal Vaccine: 50+(1 of 2 - PCV) Never done Colorectal Cancer Screening Never done Lung Cancer Screening Never done Shingrix Vaccine(1 of 2) Never done LDL Cholesterol due on 12/02/2021 Influenza Vaccine(1) due on 11/18/2023 Covid-19 Vaccine( - season) Never done BP Controlled (<130/80) due on 03/05/2025 Annual PCP Team Chronic Disease Visit due on 06/05/2025 Diabetes Screening due on 08/15/2025 Lipid Screening due on 12/02/2025 Prostate Cancer Screening Discussion due on 12/02/2025 RSV Vaccine(1 - 1-dose 75+ series) due on 2036 Hepatitis C Screening Completed HIV Screening Completed ASSESSMENT/PLAN: 1. SOB (more content not included)... [facility] 06-05-2024 History of Present illness Narrative Chief Complaint Patient presents with: Shortness of Breath: Woke up in the middle of the night and couldn't breathe feels like before when had PE bilateral leg pain: Legs ache like tooth ache for about 4 days. Left knee was swollen so bad couldn't get pants over it. ADRI Pappas is a 63 year old male who presents here today for Above Complaints.. Patient present today for bilateral leg pain x4 days that extends up into his groin and down to his toes. Patient states he is unable to walk short distances without his legs hurting. Patient states he did fall a few days ago his knee gave out denies hitting his head. Patient states he landed on his arm when he feel. Patient states he felt like his knee twisted on him when he fell. He had his left knee replaced and ever since it has clicked. Patient denies clicking and popping in the right knee. Patient states that his left knee was swollen and painful and he was unable to pull his pants leg over his left knee. He has not noticed any redness. Patient has tried tylenol which has not helped. Patient states he also started having SOB and chest pain last night. Patient denies radiation or crushing sensation. Past medical history, appointments, medications, allergies reviewed. Previous Medical History PAST MEDICAL HISTORY Diagnosis Date CAD (coronary artery disease) Mild, Nonobstructive- Dr. Yoon Depression EPISODIC Hypercholesterolemia Hypertension Myocardial infarction (HCC) 2007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 Recorded Date/T balbir mother Heart disease Unknown father Heart disease Unknown Advance Directives No Advanced Directives Records Found Advance Directive Response Recorded Date/ Time Advance Directives No June 26 7:28am Living Will No April 11 12:08pm Power of Record Label Internship No April 11, 2021 12:08pm Advance Directive Response Recorded Date/ Time Living Will No April 18 10:44am Do you have a [facility] Power of Record Label Internship? No April 18, 2024 10:44am Advance Directives No April 18, 2024 10:44am Chief Complaint and Reason for Visit Chief Complaint 1 Y FU SYNCOPE Reason for Visit Hyperlipidemia Syncope Ventricular tachycardia seen on awake overnight monitor Bradycardia History of TIA (transient ischemic attack) Hypertension Chief Complaint Admit Date 4 M FU April 02, 2024 1 0:16am SYNCOPE April 30, 2024 12:00pm Reason for Visit Admit Date Hyperlipidemia April 02, 2024 1 0:16am PAD (peripheral artery disease) April 02, 2024 10:16am Ventricular tachycardia seen on awake overnight monitor April 02, 2024 10:16am Bradycardia April 02, 2024 1 0:16am History of TIA (transient ischemic attac k) April 02, 2024 10:16am Hypertension April 02, 2024 1 0:16am Chief Complaint Admit Date SYNCOPE April 30, 2024 12:00pm 4 M FU August 14, 2024 10:11 am Reason for Visit Admit Date History of left heart catheterization Ma y 2024 10:11am Hyperlipidemia August 14, 2024 10:11 am PAD (peripheral artery disease) July 10:11am Ventricular tachycardia seen on awake overnight monitor August 14, 2024 10:11am Bradycardia August 14, 2024 10:11 am History of TIA (transient ischemic attac k) August 14, 2024 10:11am Hypertension August 14, 2024 10:11 am Additional Source Comments (unrecognized sect ion and content) No Status Records FoundNo Status Records FoundNo Status Records FoundNo Status Records Found INFORMATION SOURCE (unrecogn ized section and content) DATE CREATED AUTHOR 09/02/2018 [facility] DATE CREATED AUTHOR AUTHOR'S ORGANIZ ATION 07/01/2020 [facility] DATE CREATED AUTHOR AUTHOR'S ORGANIZ ATION 08/27/2024 [facility] DATE CREATED AUTHOR AUTHOR'S ORGANIZ ATION 01/28/2025 [facility] Goals (unrecognized section and content) Goals may be documented in a n alternate sectionGoals may be documented in an alternate sectionGoals may be documented in an alternate section Source Comments (unrecognize d section and content) In the event this informatio n is protected by the Federal Confidentiality of Alcohol and Drug Abuse Patient Records regulations: The Federal rules restrict any use of the information to criminally investigate or prosecute any alcohol or drug abuse patient.[facility] Hospital[facility] the event this information is protected by the Federal Confidentiality of Alcohol and Drug Abuse Patient Records regulations: The Federal rules restrict any use of the information to criminally investigate or prosecute any alcohol or drug abuse patient.[facility] HospitalIn the event this information is protected by the Federal Confidentiality of Alcohol and Drug Abuse Patient Records regulations: The Federal rules restrict any use of the information to criminally investigate or prosecute any alcohol or drug abuse patient.[facility] HospitalIn the event this information is protected by the Federal Confidentiality of Alcohol and Drug Abuse Patient Records regulations: The Federal rules restrict any use of the information to criminally investigate or prosecute any alcohol or drug abuse patient.[facility] the event this information is protected by the Federal Confidentiality of Alcohol and Drug Abuse Patient Records regulations: The Federal rules restrict any use of the information to criminally investigate or prosecute any alcohol or drug abuse patient.[facility] the event this information is protected by the Federal Confidentiality of Alcohol and Drug Abuse Patient Records regulations: The Federal rules restrict any use of the information to criminally investigate or prosecute any alcohol or drug abuse patient.[facility] the event this information is protected by the Federal Confidentiality of Alcohol and Drug Abuse Patient Records regulations: The Federal rules restrict any use of the information to criminally investigate or prosecute any alcohol or drug abuse patient.[facility] the event this information is protected by the Federal Confidentiality of Alcohol and Drug Abuse Patient Records regulations: The Federal rules restrict any use of the information to criminally investigate or prosecute any alcohol or drug abuse patient.[facility] the event this information is protected by the Federal Confidentiality of Alcohol and Drug Abuse Patient Records regulations: The Federal rules restrict any use of the information to criminally investigate or prosecute any alcohol or drug abuse patient.[facility] the event this information is protected by the Federal Confidentiality of Alcohol and Drug Abuse Patient Records regulations: The Federal rules restrict any use of the information to criminally investigate or prosecute any alcohol or drug abuse patient.[facility] Hospital[facility] the event this information is protected by the Federal Confidentiality of Alcohol and Drug Abuse Patient Records regulations: The Federal rules restrict any use of the information to criminally investigate or prosecute any alcohol or drug abuse patient.[facility] Reason for Visit (unrecogniz ed section and content) Reason Comments Results Reason Comments Sinus Problem sinus pressure and d rainage x 1 week Reason Comments leg pain Reason Comments Shortness of Breath Woke up in the middl e of the night and couldn't breathe feels like before when had PE bilateral leg pain Legs ache like tooth ache for about 4 days. Left knee was swollen so bad couldn't get pants over it. Reason Comments Physical Reason Comments New Pain Care Teams (unrecognized sec tion and content) Guitar Maker Relationship Specialty Start Date End Date Cisco Pabon MD [address] [place] [address] PCP - General Family Medicine 02/14/21 Richard Becker MD [address] [address] Home Care Provider Orthopedics 07/29/14 Richard Becker MD [address] [address] Referring Orthopedics 07/29/14 Guitar Maker Relationship Specialty Start Date End Date Richard Becker MD [address] [address] Home Care Provider Orthopedics 07/29/14 Richard Becker MD [address] [address] Referring Orthopedics 07/29/14 Guitar Maker Relationship Specialty Start Date End Date Cisco Pabon MD [address] [place] [address] PCP - General Family Medicine 02/14/21 Richard Becker MD [address] [address] Home Care Provider Orthopedics 07/29/14 Richard Becker MD [address] [address] Referring Orthopedics 07/29/14 PodlogarShanda APRN.GROUP BILLING COORDINATOR [address] [place] [address] Dental Appliance Mechanic [facility] 02/23/24 Guitar Maker Relationship Specialty Start Date End Date Cisco Pabon MD [address] [place] [address] PCP - General Family Medicine 02/14/21 Richard Becker MD [address] [address] Home Care Provider Orthopedics 07/29/14 Richard Becker MD [address] [address] Referring Orthopedics 07/29/14 PodlogShanda vuong APRN.GROUP BILLING COORDINATOR [address] [place] [address] Dental Appliance Mechanic Family Medicine 02/23/24 Lucas Graham, DURABLE MEDICAL EQUIPMENT TECHNICIAN.GROUP BILLING COORDINATOR [address] [place] [address] Dental Appliance Mechanic [facility] 05/30/24 Guitar Maker Relationship Specialty Start Date End Date Cisco Pabon MD [address] [place] [address] PCP - General Family Medicine 02/14/21 Richard Becker MD [address] [address] Home Care Provider Orthopedics 07/29/14 Richard Becker MD [address] [phone] Referring Orthopedics 07/29/14 PodlogarShanda, DURABLE MEDICAL EQUIPMENT TECHNICIAN.GROUP BILLING COORDINATOR [address] [place] [address] Dental Appliance Mechanic Family Medicine 02/23/24 Lucas Graham, DURABLE MEDICAL EQUIPMENT TECHNICIAN.GROUP BILLING COORDINATOR [address] [place] [address] Dental Appliance Mechanic [facility] 05/30/24 Guitar Maker Relationship Specialty Start Date End Date Cisco Pabon MD [address] [place] [address] PCP - General Family Medicine 02/14/21 Richard Becker MD [address] [address] Home Care Provider Orthopedics 07/29/14 Richard Becker MD [address] [address] Referring Orthopedics 07/29/14 PodShanda reed APRN.GROUP BILLING COORDINATOR [address] [place] [address] Dental Appliance Mechanic Family Medicine 02/23/24 Lucas Graham APRN.GROUP BILLING COORDINATOR [address] [place] [address] Dental Appliance Mechanic Family Medicine 05/30/24 Guitar Maker Relationship Specialty Start Date End Date Cisco Pabon MD [address] [place] [address] PCP - General Family Medicine 02/14/21 Richard Becker MD [address] [address] Home Care Provider Orthopedics 07/29/14 Richard Becker MD [address] [address] Referring Orthopedics 07/29/14 PodShanda reed APRN.GROUP BILLING COORDINATOR [address] [place] [address] Dental Appliance Mechanic Family Medicine 02/23/24 Lucas Graham APRN.GROUP BILLING COORDINATOR [address] [place] [address] Dental Appliance Mechanic Family Medicine 06/09/24 Guitar Maker Relationship Specialty Start Date End Date Cisco Pabon MD [address] [place] [address] PCP - General Family Medicine 02/14/21 Richard Becker MD [address] [address] Home Care Provider Orthopedics 07/29/14 Richard Becker MD [address] [address] Referring Orthopedics 07/29/14 Shanda Morel APRN.GROUP BILLING COORDINATOR [address] [place], [place] [id number] [facility] 02/23/24 Lucas Graham APRN.GROUP BILLING COORDINATOR [address] [place], [place] [id number] [facility] 06/09/24 Team Status: Active Member Role Status Dates No Primary Care Physician Primary Care Provider Active Team Status: Inactive Member Role Status Dates Dr. Maurilio Pabon MD Referring Provider Active Start: April 02, 2024 End: April 02, 2024 Yoana MCMAHON, PA Attending Provider Active Start: April 02, 2024 End: April 02, 2024 No Primary Care Physician Primary Care Provider Active Start: April 02, 2024 End: April 02, 2024 Team Status: Inactive Member Role Status Dates No Primary Care Physician Primary Care Provider Active Start: April 30, 2024 End: April 30, 2024 Dr. Abel Mckeon MD Attending Provider Active S tart: April 30, 2024 End: April 30, 2024 Dr. Abel Mckeon MD Referring Provider Active S tart: April 30, 2024 End: April 30, 2024 Yoana Molina PA, PA Other Provider Active Start: April 30, 2024 End: April 30, 2024 Guitar Maker Relationship Specialty Start Date End Date Cisco Pabon MD [address] [place] [address] PCP - General Family Medicine 02/14/21 Rcihard Becker MD [address] [address] Home Care Provider Orthopedics 07/29/14 Richard Becker MD [address] [address] Referring Orthopedics 07/29/14 PodlogarShanda APRN.GROUP BILLING COORDINATOR [address] [place], [place] [address] Dental Appliance Mechanic Family Medicine 02/23/24 Lucas Graham APRN.GROUP BILLING COORDINATOR [address] [place], [place] [id number] Dental Appliance Mechanic Family Medicine 05/30/24 06/08/24 Lucas Graham APRN.GROUP BILLING COORDINATOR [address] [place], [place] [id number] Dental Appliance Mechanic Family [facility] 06/09/24 08/03/24 Team Status: Active Member Role Status Dates Dr. Maurilio Pabon MD Primary Care Provider Acti ve Team Status: Inactive Member Role Status Dates No Primary Care Physician Referring Provider Active Start: August 14, 2024 End: August 14, 2024 Yoana Molina PA, PA Attending Provider Active Start: August 14, 2024 End: August 14, 2024 Dr. Maurilio Pabon MD Primary Care Provider Acti ve Start: August 14, 2024 End: August 14, 2024 Guitar Maker Relationship Specialty Start Date End Date Cisco Pabon MD [address] [place], [place] [id number] PCP - General Family Medicine 02/14/21 Richard Becker MD [address] [address] Home Care Provider Orthopedics 07/29/14 Richard Becker MD [address] [address] Referring Orthopedics 07/29/14 PodlogarShanda, DURABLE MEDICAL EQUIPMENT TECHNICIAN.GROUP BILLING COORDINATOR [address] [place] [address] [facility] 02/23/24 Guitar Maker Relationship Specialty Start Date End Date Cisco Pabon MD [address] [place] [address] PCP - General Family Medicine 02/14/21 Richard Becker MD [address] [address] Home Care Provider Orthopedics 07/29/14 Richard Becker MD [address] [address] Referring Orthopedics 07/29/14 Podlogar, Shanda, DURABLE MEDICAL EQUIPMENT TECHNICIAN.GROUP BILLING COORDINATOR [address] [place] [address] [facility] 02/23/24 FOR RECORDS PERTAINING TO PATIENTS WHO ARE OR HAVE BEEN ENROLLED IN A CHEMICAL DEPENDENCY/SUBSTANCEABUSE PROGRAM, SOME INFORMATION MAY BE OMITTED. This clinical summary was aggregated from multiple sources. Caution should be exercised in using it in the provision of clinical care. This summary normalizes information from multiple sources, and as a consequence, information in this document may materially change the coding, format and clinical context of patient data. In addition, data may be omitted in some cases. CLINICAL DECISIONS SHOULD BE BASED ON THE PRIMARY CLINICAL RECORDS. [facility] [employer] [facility]. provides no warranty or guarantee of the accuracy or completeness of information in this document.
--- NOTE | 2025-02-24 20:47 | EDS_ITS ---
HPI History of Present Illness Chief Complaint: Bite Narrative Narrative: Patient is a 64-year-old male with a past medical history of peripheral arterial disease, TIA, hypertension, TIA who presented to the emergency department with a chief complaint of right thigh pain, redness and chest pain. He states that his right thigh has been red for approximately 4 days now and he went to a urgent care today was given a prescription for doxycycline. He states that he took his first dose around 1 or 2:00 this afternoon. He states that this evening he vomited around 7 PM and notes that after this he developed chest pain prompting him to come here for further evaluation management. Patient has no complaints at this point time he feels well otherwise. Denies any sick contacts denies any recent travel history denies any history of blood clots. Patient denies any direct injury to the back of his right leg to cause the redness and bump in the area. [facility] Medical History Cellulitis of right thigh Syncope Concussion PAD (peripheral artery disease) Hyperlipidemia COVID-19 (~03/2021) Ventricular tachycardia seen on bacteriology technician History of TIA (transient ischemic attack) (10/10/17) Tobacco abuse Shortness of breath Bradycardia Hypertension TIA (transient ischemic attack) Aphasia Chest pain Home Medications ?Medication ?Instructions ?Recorded ?Last Taken ?Type Handicap Placcard #1 ea 09/21/22 Unknown Rx clopidogrel 75 mg tablet 75 mg PO DAILY BLOOD THINNER #90 01/28/25 Unknown Rx tabs lisinopril 5 mg tablet 5 mg PO DAILY #90 tabs 01/28 Unknown Rx nitroglycerin 0.4 mg sublingual 0.4 mg sublingual Q5-1 5M PRN chest 01/28/25 Unknown Rx tablet pain #25 tabs rosuvastatin 10 mg tablet 10 mg PO DAILY #90 tabs 01/17 05/13 Unknown Rx doxycycline monohydrate 100 mg 100 mg PO BID #28 caps 02/24/25 Unknown Rx capsule Allergy/AdvReac Type Severity Reaction Status Date / Time aspirin Allergy Severe Hives Verified 02/24/25 20:16 Penicillins (PCN) Allergy Hives Verified 02/24/25 20:16 meperidine HCl (From Demerol) AdvReac Severe Behavior Verified 02/24/25 20:16 change Family History Mother Heart disease Father Heart disease Surgical History History of left heart catheterization (06/26/18) Social History housing: house Smoking Status: Current every day smoker tobacco type: cigarettes alcohol intake: never substance use type: does not use caffeine: Yes Type: coffee Number of servings: 3 ROS ROS ED ROS Narrative Constitutional: Denies any fevers, chills, headaches Cardiovascular: Planes of chest discomfort as noted above after vomiting denies palpitations Respiratory: Denies coughing wheezing shortness of breath Abdomen: Denies abdominal pain nausea vomiting diarrhea : Denies urinary symptoms Neurological: Denies any numbness, weakness, tingling Skin: Complains of redness to the right thigh EXAM Physical Exam Narrative Exam Narrative: General: Patient was lying in bed rest comfortably did not appear to be in acute distress Head: Atraumatic, normocephalic Eyes: PERRL bilaterally, EOMI bilaterally, no conjunctival injection noted Neck: Soft, supple, trachea midline Cardiovascular: Regular rate and rhythm no murmurs gallops rubs and no Respiratory: Clear to auscultation bilaterally Abdomen: No tenderness to palpation Musculoskeletal: Compartments are soft compressible in the right lower extremity Extremities: +4/5 strength noted in the bilateral lower extremities Neurological: Patient following commands that he was at [facility] the year is 2024 Skin: Patient has erythema in the posterior right thigh extending note from just behind his right knee up to the mid thigh region this was outlined in skin marker Const Vital Signs: 02/24/25 20:13 02/24/25 20:17 02/24/25 20:53 Temperature 98.3 F 98.3 F Temperature Source Oral Oral Pulse Rate 80 80 Respiratory Rate 16 16 Blood Pressure 103/68 150/69 H Blood Pressure Mean 79 96 Pulse Ox 97 97 Oxygen Delivery Method Room Air Room Air Room Air 02/24/25 21:17 02/24/25 22:00 02/24/25 23:31 Temperature 98 F 98 F Temperature Source Oral Pulse Rate 69 70 64 Respiratory Rate 16 16 18 Blood Pressure 136/63 H 140/69 H 140/71 H Blood Pressure Mean 87 92 94 Pulse Ox 99 99 97 Oxygen Delivery Method Room Air MDM MDM MDM Narrative Medical decision making narrative: Patient is a 64-year-old male who presents to the emergency department the chief complaint of redness to the right thigh posteriorly, chest pain after vomiting and wanting evaluated. On the differential diagnose includes but not limited to ACS, pneumonia, pneumothorax, Boerhaave syndrome, abscess, cellulitis. Once workup is obtained reviewed he will be reevaluated. Bedside ultrasound was performed and showed cobblestoning appearance of his right posterior thigh no fluid collection noted to suggest abscess. Patient will given dose of IV clindamycin here in the emergency department. Patient's CBC reviewed and showed a white blood count of 10.2, he was 14, plate count normal 186. Patient odium normal 140, potassium 3.5, creatinine 0.78. Patient's troponin was less than 6 delta troponin at 2 hours was only 11 EKG showed ventricular rate of 79 bpm PA interval normal at 158. Patient's chest x- ray reviewed by myself and by radiology showed no acute cardiopulmonary processes. Discussed the results with the patient he would like to go home at this point in time he was encouraged to follow-up with In outpatient setting and return with worsening symptoms or any other concerns. He was advised if the redness is spreading outside the line that was drawn on its leg he needs to come back for IV antibiotics. He is agreeable this plan as well as family was at bedside all course concerns answered discharged home in stable condition Lab Data Labs: Laboratory Results - last 24 hr 02/24/25 02/24/25 20:00 22:30 WBC 10.2 RBC 4.05 L Hgb 14.0 Hct 40.0 MCV 98.8 H MCH 34.6 H MCHC 35.0 RDW Std Deviation 46.2 H RDW Coeff of Mary 12.7 Plt Count 186 MPV 11.6 Immature Gran % (Auto) 0.300 Neut % (Auto) 70.2 H Lymph % (Auto) 20.8 [place] % (Auto) 6.5 Eos % (Auto) 1.8 Baso % (Auto) 0.4 Absolute Neuts (auto) 7.1 Absolute Lymphs (auto) 2.12 Nucleated RBC % 0 Sodium 140 Potassium 3.5 Chloride 104 Carbon Dioxide 25.7 Anion Gap 10 BUN 12 Creatinine 0.78 Estim Creat Clear Calc 109.55 Est GFR (MDRD) Non-Af 100 BUN/Creatinine Ratio 15.1 Glucose 171 H Calcium 8.8 Troponin T High Sens < 6 Troponin T Hi Sens 2 Hr 11 Radiography Diagnostic Testing: Clinical Impression(s) from Imaging Studies Chest X-Ray 02/24/25 20:53 IMPRESSION: NO ACUTE FINDINGS. Reading Location: [facility] Discharge Plan Triage Chief Complaint: Bite ED Provider: Ronald Helms Dx/Rx/DC Orders Clinical Impression: Cellulitis of leg, Chest pain, History of transient ischemic attack Prescriptions: No Action (DME) Handicap Placcard See Rx Instructions .Route .MEDSUPPLY Qty: 1 0RF Rx Instructions: Exp: 09/2027 Dx: Debility clopidogrel 75 mg tablet 75 mg PO DAILY Qty: 90 3RF lisinopril 5 mg tablet 5 mg PO DAILY Qty: 90 3RF nitroglycerin 0.4 mg tablet, sublingual 0.4 mg SUBLINGUAL Q5-15M PRN (Reason: chest pain) Qty: 25 3RF Rx Instructions: until response; do not exceed 3 doses per episode rosuvastatin 10 mg tablet 10 mg PO DAILY Qty: 90 3RF doxycycline monohydrate 100 mg capsule 100 mg PO BID Qty: 28 0RF Primary Care Provider: Maurilio Pabon Referrals: Maurilio Pabon MD [Primary Care Provider, Family Practice] Activity Restrictions/Additional Instructions: Your blood work did not show any acute findings here in the emergency department today. Follow-up with your doctor in the outpatient setting. Take antibiotics as prescribed. If the redness is spreading outside the line that was drawn after 48 hours of the antibiotics you need to return to the emergency department. Return with any other concerns Print Language: Maori Disposition Disposition: Home, Self Care
--- NOTE | 2025-02-24 20:53 | RAD_ITS ---
PROCEDURE: CHEST PA AND LATERAL 02/24/2025 REASON FOR EXAM: CHEST PAIN TECHNIQUE: Procedure Code: RADCXR Modality: DX Procedure: CHEST PA AND LATERAL COMPARISON: None available. FINDINGS: Hardware: None. Heart: The heart size is normal. Mediastinum: The mediastinal contour is unremarkable. Lungs: The lungs are clear. No pneumothorax or pleural effusion. Bones: The bones are unremarkable. RAD/Chest PA and Lateral IMPRESSION: NO ACUTE FINDINGS. Reading [facility]
[2025-02-24] MEDS: 0.9% Normal Saline (1000mL) 1,000 ML 999 ML IV (21:01)
[2025-02-24] MEDS: Clindamycin 600 MG/50 ML BAG 100 MG IV (21:01)
[2025-02-24 21:08] LABS: Hematocrit 40.0 % (40-54); Hemoglobin 14.0 g/dL (13.0-16.5); Immature Granulocytes Count 0.030 X10^3/uL (0.0-0.0); Mean Corp Hgb Conc 35.0 g/dL (32-36); Mean Corpuscular Volume 98.8 fL (80-94); Mean Platelet Vol. 11.6 fl (6.2-12.0); NRBC Flagged by Analyzer 0 % (0-5); Platelet Count 186 K/mm3 (150-450); RBC Distribution Width CV 12.7 % (11.6-14.6); RBC Distribution Width SD 46.2 fl (35.1-43.9); Red Blood Count 4.05 M/mm3 (4.6-6.2); White Blood Count 10.2 K/mm3 (4.4-11.0)
[2025-02-24 21:11] LABS: Anion Gap 10 (5-15); BUN 12 mg/dL (4-19); BUN/Creat Ratio 15.1 RATIO (10-20); Calcium,Total 8.8 mg/dL (7.6-11.0); Carbon Dioxide 25.7 mmol/L (21.0-32.0); Chloride 104 mmol/L (98-108); Estimated Creatinine Clearance 109.55 ml/min (50-250); Glucose 171 mg/dL (70-99); Potassium 3.5 mmol/L (3.3-5.1); Troponin T High Sensitivity < 6 ng/L (<=22)
[2025-02-24 21:17] VITALS: BP 136/63; PULSE 69; RESP 16; TEMP 36.6; O2SAT 99
[2025-02-24 22:00] VITALS: BP 140/69; PULSE 70; RESP 16; O2SAT 99
[2025-02-24 23:20] LABS: Troponin T High Sens 2 HR 11 ng/L (<=22)
[2025-02-24 23:31] VITALS: BP 140/71; PULSE 64; RESP 18; TEMP 36.6; O2SAT 97
== END 2025-02-24 23:51 | disposition home or self-care (01) ==
PROVIDERS: Emergency Provider Emergency Medicine; PCP Family Medicine; Visit Provider Emergency Medicine
DX: L03.115 Cellulitis of right lower limb (principal); R07.9 Chest pain, unspecified; F17.210 Nicotine dependence, cigarettes, uncomplicated; I73.9 Peripheral vascular disease, unspecified; Z86.73 Personal history of transient ischemic attack (TIA), and cerebral infarction without residual deficits
CPT/HCPCS: 71046; 80048; 84484; 85025; 93005; 96365; 99285; A4216